=== PATIENT | female | born 1965 | race Caucasian/White ===

== ENCOUNTER 2020-03-29 10:12 | Observation (INO) | payer OTHER, SELFPAY ==
[2020-03-29] VITALS (7 sets, daily range): BP systolic 115–125; BP diastolic 71–83; PULSE 101–121; RESP 18–20; TEMP 36.3–36.6; O2SAT 98–100; BMI 23.5
--- NOTE | 2020-03-29 | ECG_ITS ---
Test Reason : ABD PAIN Blood Pressure : / mmHG Vent. Rate : 113 BPM Atrial Rate : 113 BPM P-R Int : 164 ms QRS Dur : 052 ms QT Int : 322 ms P-R-T Axes : 033 007 015 degrees QTc Int : 441 ms Sinus tachycardia Cannot rule out Anterior infarct (cited on or before 02-MAR-2020) Abnormal ECG When compared with ECG of 07-MAR-2020 11:53, No significant change was found Referred By: Jaron Lopez Electronically Signed By:OLEGARIO ROBERT
--- NOTE | 2020-03-29 | XR_ITS ---
EXAMINATION: XR CHEST CLINICAL INFORMATION: Shortness of breath. COMPARISON: Portable chest 03/07/2020. TECHNIQUE: Portable AP upright view of the chest was obtained. FINDINGS: The right chest port with lead terminating at cavoatrial junction is unchanged. The heart is normal size. There is no congestion or focal consolidation. The bony thorax is unremarkable. IMPRESSION: No acute cardiopulmonary process.
--- NOTE | 2020-03-29 | CT_ITS ---
EXAMINATION: CT ABDOMEN WITHOUT CONTRAST CLINICAL INFORMATION: Ovarian cancer. Abdominal pain. COMPARISON: Previous CT of the abdomen and pelvis 03/02/2020 TECHNIQUE: Contiguous axial thin section helical images of the abdomen were performed without contrast. The data set was reformatted in the coronal and sagittal planes and reviewed on an independent workstation. This CT examination was performed using dose optimization techniques as appropriate, variously including the following: *Automated exposure control *Adjustment of mA and/or kV according to patient size (this includes techniques or standardized protocols for targeted exams where dose is matched to indication/reason for exam; i.e. extremities or head) *Use of iterative reconstruction technique DLP: 506 mGy-cm FINDINGS: There is a large amount of ascites. There is a peritoneal thickening along the diaphragmatic peritoneal surface and some calcification and the lower anterior abdominal peritoneal reflection. There is a soft tissue mass under the left hemidiaphragm measuring 2 cm axial image 7 series 2 that is unchanged. 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 LUNG BASES: The lung bases are clear. LIVER, GALLBLADDER, BILIARY TREE: There is a there are scattered calcifications along the capsular surface of the liver. There is mass effect on the liver from a large amount of ascites. There is question of subcapsular liver implants. The gallbladder is unremarkable. There is no biliary duct dilatation. PANCREAS: There is mass effect on the pancreas from the large amount of ascites including fluid in the lesser sac. The pancreas is otherwise unremarkable. SPLEEN: There are scattered capsular calcifications along the surface of the spleen. No focal splenic lesion is seen. ADRENAL GLANDS AND KIDNEYS: The adrenal glands are difficult to visualize. Is mass effect on the kidneys from the large amount of ascites. The kidneys are otherwise unremarkable. BOWEL LOOPS: There is mass effect on the stomach and right and left colons from the large amount of ascites. Small and large bowel is otherwise unremarkable. LYMPH NODES: No enlarged lymph nodes are seen. VASCULAR: Unremarkable. The uterus and ovaries appear to have been removed. BONES: Mild degenerative changes of the spine. No focal bone lesion is seen. IMPRESSION: Large amount of ascites with areas of peritoneal calcification and and thickening and some capsular liver implants suggestive of malignant ascites.
--- NOTE | 2020-03-29 10:45 | ED_ITS ---
HPI - Abdominal Pain General Chief Complaint: Abdominal Pain <Jaron Lopez NP - Last Filed: 03/29/20 17:14> Stated Complaint: abd pain <Jaron Lopez NP - Last Filed: 03/29/20 17:14> Time Seen by Provider: 03/29/20 10:41 <Jaron Lopez NP - Last Filed: 03/29/20 17:14> Source: patient <Jaron Lopez NP - Last Filed: 03/29/20 17:14> Mode of arrival: ambulatory <Jaron Lopez NP - Last Filed: 03/29/20 17:14> Limitations: no limitations <Jaron Lopez NP - Last Filed: 03/29/20 17:14> History of Present Illness HPI narrative: Has history of endometrial CA/ovarian CA is on chemo has occasional abdominal ascites has had multiple episodes requiring drainage having abdominal pain feeling like her abdomen is distended and needing her ascites to be drained. She was scheduled for Monday but cannot wait due to the pain. Denies any fever, rash, chills. <Jaron Lopez NP - Last Filed: 03/29/20 17:14> MD elicited complaint: abdominal pain <Jaron Lopez NP - Last Filed: 03/29/20 17:14> Pain Consistency: constant <Jaron Lopez NP - Last Filed: 03/29/20 17:14> Migration to: no migration <Jaron Lopez NP - Last Filed: 03/29/20 17:14> Related Data Allergies/Adverse Reactions: Allergies Allergy/AdvReac Type Severity Reaction Status Date / Time cocaine [Cocaine] Allergy Severe SEIZURE TO Verified 03/29/20 11:34 LIQUID COCAINE codeine [CODEINE] Allergy Severe SEIZURE Verified 03/29/20 11:34 paclitaxel [From TAXOL] Allergy Severe HEART Verified 03/29/20 11:34 STOPPED diphenhydramine Allergy Unknown PALPITATION Verified 03/29/20 11:34 [From BENADRYL] S ibuprofen [IBUPROFEN] Allergy Unknown SEIZURE Verified 03/29/20 11:34 latex [LATEX] Allergy Unknown RASH Verified 03/29/20 11:34 metronidazole [Flagyl] Allergy Unknown Seizure Verified 03/29/20 11:34 lactose Allergy Constipatio Verified 03/29/20 11:34 n From FLAGYL Allergy Severe SEIZURE-PASSED Uncoded 03/12/20 16:23 OUT CHOCOLATE Allergy Mild PASSOUT Uncoded 03/12/20 16:23 BENADRYL Allergy Unknown Hives Uncoded 03/29/20 11:34 Benadryl Allergy Unknown Hives Uncoded 03/29/20 11:34 CODEINE Allergy Unknown Unresponsiv Uncoded 03/29/20 11:34 e Codeine Allergy Unknown Unresponsiv Uncoded 03/29/20 11:34 e FLAGYL Allergy Unknown Seizure Uncoded 03/29/20 11:34 Taxol AdvReac Unknown cardiac Uncoded 02/17/20 00:00 arrect <Jaron Lopez NP - Last Filed: 03/29/20 17:14> Review of Systems Review of Systems Constitutional: No Weight loss, No Fever, No Chills, No Night Sweats, No Fatigue, No Malaise ENT/Mouth: No Hearing loss, No Ear Pain, No Nasal Congestion, No Sinus Pain, No Hoarseness, No sore throat, No Rhinorrhea, No Swallowing Difficulty Eyes: No Eye Pain, No Swelling, No Redness, No Foreign Body, No Discharge, No Vision Changes Cardiovascular: No Chest Pain, No SOB, No Dyspnea on Exertion, No Orthopnea, No Edema, No Palpitations Respiratory: No Cough, No Sputum, No Wheezing, No Smoke Exposure, No Dyspnea Gastrointestinal: + Nausea, No Vomiting, No Diarrhea, No Constipation, + abdominal Pain, No Hematochezia, No Melena Genitourinary: no irregular bleeding, No Dysuria, No Urinary Frequency, No Hematuria, No Urinary Incontinence, No Urgency, No Flank Pain, No Urinary Flow Changes, No Hesitancy Musculoskeletal: No joint pain, No Myalgias, No Joint Swelling Skin: No Skin Lesions, No rash Neuro: No Weakness, No Numbness, No Paresthesias, No Loss of Consciousness, No Dizziness, No Headache Psych: No Anxiety/Panic, No Depression, No SI/HI/AH/VH, No Social Issues, Heme/Lymph: No Bruising, No Bleeding,No Lymphadenopathy Endocrine: No Polyuria, No Polydipsia, No Temperature Intolerance <Jaron Lopez NP - Last Filed: 03/29/20 17:14> Physical Exam Vital Signs and I&O and Narrative: Vital Signs and I&O: Vital Signs Temp 97.6 F 03/29/20 10:34 Pulse 121 H 03/29/20 10:34 Resp 20 03/29/20 10:34 BP 125/83 03/29/20 10:34 Pulse Ox 100 03/29/20 10:34 Intake & Output 03/28/20 03/29/20 03/29/20 18:59 06:59 18:59 Intake Total 1000 / 1000 Balance 1000 / 1000 Weight 60.2 kg Intake: Intake, IV Amoun t 1000 / 1000 0.9 % Sodium C hloride 1,000 ml 1000 / 1000 @ 999 mls/hr I VCONT .Q1H1M [facility] Rx#:[id number] Body Mass Index 23.5 <Jaron Lopez NP - Last Filed: 03/29/20 17:14> Vital Signs and I&O: Vital Signs Temp 97.6 F 03/29/20 10:34 Pulse 121 H 03/29/20 10:34 Resp 20 03/29/20 10:34 BP 125/83 03/29/20 10:34 Pulse Ox 100 03/29/20 10:34 Intake & Output 03/28/20 03/29/20 03/29/20 18:59 06:59 18:59 Intake Total 1000 / 1000 Balance 1000 / 1000 Weight 60.2 kg Intake: Intake, IV Amoun t 1000 / 1000 0.9 % Sodium C hloride 1,000 ml 1000 / 1000 @ 999 mls/hr I VCONT .Q1H1M [facility] Rx#:[id number] Body Mass Index 23.5 <Clif Dee DO - Last Filed: 03/29/20 17:39> Const: Other: chronically ill appearing <Jarondavid Lopez NP - Last Filed: 03/29/20 17:14> Orientation/consciousness: patient oriented x3 <[facility] CARI Lopez - Last Filed: 03/29/20 17:14> HENMT: Head: Yes normocephalic and Yes atraumatic <Jaron Lopez NP - Last Filed: 03/29/20 17:14> Eyes: Sclerae: sclerae normal <[facility] CARI Lopez - Last Filed: 03/29/20 17:14> Chest: Chest palpation & inspection: normal inspection of the chest <Jarondavid Lopez NP - Last Filed: 03/29/20 17:14> Resp: Effort & Inspection: normal respiratory effort and no respiratory distress <Jaron CARI Lopez - Last Filed: 03/29/20 17:14> Auscultation: clear to auscultation bilaterally <[facility] CARI Lopez - Last Filed: 03/29/20 17:14> Cardio: Rate: regular rate <[facility] Jessica CHEESE [employer]KER - Last Filed: 03/29/20 17:14> Rhythm: regular rhythm <[facility] Jessica CHEESE MAKER - Last Filed: 03/29/20 17:14> GI: Palpation (GI): Firmness to palpation present (GI), no guarding and Ascites present <[facility] CARI Lopez - Last Filed: 03/29/20 17:14> Skin: General skin exam: no rashes or lesions noted <[facility] CARI Lopez - Last Filed: 03/29/20 17:14> Neuro: General: patient oriented x3 <[facility] CARI Lopez - Last Filed: 03/29/20 17:14> Cranial nerves: Yes CN's II-XII intact bilaterally and Yes Bilaterally intact EOM present <Jaron CARI Lopez - Last Filed: 03/29/20 17:14> Extrem: General: Yes normal to inspection <Jarondavid Lopez NP - Last Filed: 03/29/20 17:14> Course Course Hospital Course: Ca patient with abdominal ascites. Workup shows thrombocytopenia at 37, no IR availability at this time to do paracentesis. No evidence of SBP or infectious pathology. Given the low platelet count will defer on paracentesis at this time will need blood products prior to. <Jaron Lopez NP - Last Filed: 03/29/20 17:14> Consultations Consultation #1: Case discussed with hospitalist Tiffanie Stafford for admission. <Jaron Lopez NP - Last Filed: 03/29/20 17:14> MDM - Abdominal Pain MDM Narrative Medical decision making narrative: 54-year-old female with above history including history of endometrial carcinoma and peritoneal serous carcinoma in 2012 was treated with chemotherapy and multiple recurrent episodes with chemotherapy and treatment, debulking surgery in 2012 at [facility], history of bulimia, anxiety, epilepsy last seizure at age 10, hypertension, hysterectomy and ascites of the abdomen with multiple paracentesis currently being followed by Oncology here Dr. Washburn presenting today <Jarondavid Lopez NP - Last Filed: 03/29/20 17:14> Lab Data Result diagrams: : 03/29/20 11:30 03/29/20 11:30 <Jarondavid Lopez NP - Last Filed: 03/29/20 17:14> Labs: Lab Results 03/29/20 03/29/20 03/29/20 Range/Units 11:30 11:30 11:30 WBC 6.0 (4.8-10.8) X10*3/uL RBC 2.92 L (4.20-5.50) X10*6/uL Hgb 9.3 L (12.0-16.0) g/dl Hct 28.4 L (37-47) % MCV 97.3 (80-98) fL MCH 31.8 (27.0-33.0) pg MCHC 32.7 (31.0-35.0) g/dl RDW 15.7 (11.0-16.0) % Plt Count 37 L (160-400) X10*3/uL MPV 12.4 H (9.4-12.3) fL Absolute Nucleated RBC 0.040 H (0.0-0.012) X10*3/uL Nucleated RBC % (auto) 0.7 H (0.0-0.2) /100WBC Neutrophils % (Manual) 32 L (45-73) % Band Neutrophils % 8 H (3-5) % Lymphocytes % (Manual) 54 H (20-40) % Monocytes % (Manual) 6 (2-11) % Neutrophils # (Manual) 2.4 (2.2-7.9) X10*3/uL Lymphocytes # (Manual) 3.2 (0.6-4.8) X10*3/uL Monocytes # (Manual) 0.4 (0.0-1.2) X10*3/uL Platelet Estimate DECREASED (NORMAL) Large Platelets PRESENT Plt Morphology Comment NOTED RBC Morphology NOTED Polychromasia 1+ Hypochromasia 1+ Microcytosis 1+ Ovalocytes 1+ Acanthocytes (Spur) 1+ PT 14.1 H (10.8-13.0) SEC INR 1.2 H (0.9-1.1) APTT 33.3 (24.1-38.0) SEC Sodium 138 (135-145) mmol/L Potassium 3.0 L (3.3-5.1) mmol/l Chloride 103 (96-108) mmol/L Carbon Dioxide 25 (22-29) mmol/L Anion Gap 13 (12-20) BUN 9 (9-16) mg/dL Creatinine 0.66 (0.5-1.4) mg/dL Estim Creat Clear Calc 78.7 Estimated GFR > 60 Random Glucose 122 H (60-115) mg/dL Calcium 8.3 L (8.4-10.2) mg/dL Magnesium 1.3 L* (1.6-2.6) mg/dL Total Bilirubin 0.4 (0.0-1.0) mg/dL AST 13 (5-31) U/L ALT 8 (0-31) U/L Alkaline Phosphatase 100 (39-117) U/L Troponin I High Sens (<3.5-17.0) ng/L Total Protein 5.0 L (6.5-8.0) g/dL Albumin 3.2 L (3.5-5.0) g/dL 03/29/20 Range/Units 11:30 WBC (4.8-10.8) X10*3/uL RBC (4.20-5.50) X10*6/uL Hgb (12.0-16.0) g/dl Hct (37-47) % MCV (80-98) fL MCH (27.0-33.0) pg MCHC (31.0-35.0) g/dl RDW (11.0-16.0) % Plt Count (160-400) X10*3/uL MPV (9.4-12.3) fL Absolute Nucleated RBC (0.0-0.012) X10*3/uL Nucleated RBC % (auto) (0.0-0.2) /100WBC Neutrophils % (Manual) (45-73) % Band Neutrophils % (3-5) % Lymphocytes % (Manual) (20-40) % Monocytes % (Manual) (2-11) % Neutrophils # (Manual) (2.2-7.9) X10*3/uL Lymphocytes # (Manual) (0.6-4.8) X10*3/uL Monocytes # (Manual) (0.0-1.2) X10*3/uL Platelet Estimate (NORMAL) Large Platelets Plt Morphology Comment RBC Morphology Polychromasia Hypochromasia Microcytosis Ovalocytes Acanthocytes (Spur) PT (10.8-13.0) SEC INR (0.9-1.1) APTT (24.1-38.0) SEC Sodium (135-145) mmol/L Potassium (3.3-5.1) mmol/l Chloride (96-108) mmol/L Carbon Dioxide (22-29) mmol/L Anion Gap (12-20) BUN (9-16) mg/dL Creatinine (0.5-1.4) mg/dL Estim Creat Clear Calc Estimated GFR Random Glucose (60-115) mg/dL Calcium (8.4-10.2) mg/dL Magnesium (1.6-2.6) mg/dL Total Bilirubin (0.0-1.0) mg/dL AST (5-31) U/L ALT (0-31) U/L Alkaline Phosphatase (39-117) U/L Troponin I High Sens 8.4 (<3.5-17.0) ng/L Total Protein (6.5-8.0) g/dL Albumin (3.5-5.0) g/dL <Jaron Lopez NP - Last Filed: 03/29/20 17:14> Lab Results 03/29/20 03/29/20 03/29/20 Range/Units 11:30 11:30 11:30 WBC 6.0 (4.8-10.8) X10*3/uL RBC 2.92 L (4.20-5.50) X10*6/uL Hgb 9.3 L (12.0-16.0) g/dl Hct 28.4 L (37-47) % MCV 97.3 (80-98) fL MCH 31.8 (27.0-33.0) pg MCHC 32.7 (31.0-35.0) g/dl RDW 15.7 (11.0-16.0) % Plt Count 37 L (160-400) X10*3/uL MPV 12.4 H (9.4-12.3) fL Absolute Nucleated RBC 0.040 H (0.0-0.012) X10*3/uL Nucleated RBC % (auto) 0.7 H (0.0-0.2) /100WBC Neutrophils % (Manual) 32 L (45-73) % Band Neutrophils % 8 H (3-5) % Lymphocytes % (Manual) 54 H (20-40) % Monocytes % (Manual) 6 (2-11) % Neutrophils # (Manual) 2.4 (2.2-7.9) X10*3/uL Lymphocytes # (Manual) 3.2 (0.6-4.8) X10*3/uL Monocytes # (Manual) 0.4 (0.0-1.2) X10*3/uL Platelet Estimate DECREASED (NORMAL) Large Platelets PRESENT Plt Morphology Comment NOTED RBC Morphology NOTED Polychromasia 1+ Hypochromasia 1+ Microcytosis 1+ Ovalocytes 1+ Acanthocytes (Spur) 1+ PT 14.1 H (10.8-13.0) SEC INR 1.2 H (0.9-1.1) APTT 33.3 (24.1-38.0) SEC Sodium 138 (135-145) mmol/L Potassium 3.0 L (3.3-5.1) mmol/l Chloride 103 (96-108) mmol/L Carbon Dioxide 25 (22-29) mmol/L Anion Gap 13 (12-20) BUN 9 (9-16) mg/dL Creatinine 0.66 (0.5-1.4) mg/dL Estim Creat Clear Calc 78.7 Estimated GFR > 60 Random Glucose 122 H (60-115) mg/dL Calcium 8.3 L (8.4-10.2) mg/dL Magnesium 1.3 L* (1.6-2.6) mg/dL Total Bilirubin 0.4 (0.0-1.0) mg/dL AST 13 (5-31) U/L ALT 8 (0-31) U/L Alkaline Phosphatase 100 (39-117) U/L Troponin I High Sens (<3.5-17.0) ng/L Total Protein 5.0 L (6.5-8.0) g/dL Albumin 3.2 L (3.5-5.0) g/dL 03/29/20 Range/Units 11:30 WBC (4.8-10.8) X10*3/uL RBC (4.20-5.50) X10*6/uL Hgb (12.0-16.0) g/dl Hct (37-47) % MCV (80-98) fL MCH (27.0-33.0) pg MCHC (31.0-35.0) g/dl RDW (11.0-16.0) % Plt Count (160-400) X10*3/uL MPV (9.4-12.3) fL Absolute Nucleated RBC (0.0-0.012) X10*3/uL Nucleated RBC % (auto) (0.0-0.2) /100WBC Neutrophils % (Manual) (45-73) % Band Neutrophils % (3-5) % Lymphocytes % (Manual) (20-40) % Monocytes % (Manual) (2-11) % Neutrophils # (Manual) (2.2-7.9) X10*3/uL Lymphocytes # (Manual) (0.6-4.8) X10*3/uL Monocytes # (Manual) (0.0-1.2) X10*3/uL Platelet Estimate (NORMAL) Large Platelets Plt Morphology Comment RBC Morphology Polychromasia Hypochromasia Microcytosis Ovalocytes Acanthocytes (Spur) PT (10.8-13.0) SEC INR (0.9-1.1) APTT (24.1-38.0) SEC Sodium (135-145) mmol/L Potassium (3.3-5.1) mmol/l Chloride (96-108) mmol/L Carbon Dioxide (22-29) mmol/L Anion Gap (12-20) BUN (9-16) mg/dL Creatinine (0.5-1.4) mg/dL Estim Creat Clear Calc Estimated GFR Random Glucose (60-115) mg/dL Calcium (8.4-10.2) mg/dL Magnesium (1.6-2.6) mg/dL Total Bilirubin (0.0-1.0) mg/dL AST (5-31) U/L ALT (0-31) U/L Alkaline Phosphatase (39-117) U/L Troponin I High Sens 8.4 (<3.5-17.0) ng/L Total Protein (6.5-8.0) g/dL Albumin (3.5-5.0) g/dL <Clif Dee DO - Last Filed: 03/29/20 17:39> Discharge Plan Discharge Clinical Impression: Ascites Qualifiers: Ascites type: malignant Qualified Code(s): R18.0 - Malignant ascites Hypertension Qualifiers: Hypertension type: unspecified Qualified Code(s): I10 - Essential (primary) hypertension Anxiety disorder Qualifiers: Anxiety disorder type: unspecified anxiety disorder Qualified Code(s): F41.9 - Anxiety disorder, unspecified <Jaron Lopez NP - Last Filed: 03/29/20 17:14> Patient Disposition: Admitted As Inpatient <Jaron Lopez NP - Last Filed: 03/29/20 17:14> PMFSH Past Medical History Medical History: Medical History (Updated 03/29/20 @ 17:14 by Jaron Lopez NP) Anxiety disorder Ascites Bulimia Endometrial carcinoma Epilepsy Hypertension Ovarian ca Post hysterectomy menopause Uterine cancer <Jaron Lopez NP - Last Filed: 03/29/20 17:14> Surgical History: Surgical History (Updated 03/29/20 @ 10:25 by Felipe Moore) H/O: hysterectomy Hx of tonsillectomy <Jaron Lopez NP - Last Filed: 03/29/20 17:14> Family History Family History: Family History (Updated 03/29/20 @ 14:04 by HARITHA Neville) Father CVA (cerebral vascular accident) Mother Hypertension Heart disease <Jaron Lopez NP - Last Filed: 03/29/20 17:14> Social History Social History: Social History Alcohol intake: never Smoking Status: Never smoker Use of substances other than those prescribed or required for medical reasons: No Any prior treatment program specific to substance use: No Advance Directives: Yes Advance Directives Information Provided: No Advance Directives on File: No <Jaron Lopez NP - Last Filed: 03/29/20 17:14>
[2020-03-29] MEDS: ondansetron HCL 4 MG/2 ML VIAL IVPUSH (11:37)
[2020-03-29] MEDS: 0.9 % Sodium Chloride 1,000 ML 999 ML IVCONT (11:37)
[2020-03-29 11:40] LABS: Hematocrit 28.4 % (37-47); Hemoglobin 9.3 g/dl (12.0-16.0); Mean Corpuscular HGB Conc 32.7 g/dl (31.0-35.0); Mean Corpuscular Hemoglobin 31.8 pg (27.0-33.0); Mean Corpuscular Volume 97.3 fL (80-98); Mean Platelet Volume 12.4 fL (9.4-12.3); NRBC Pct Auto 0.7 /100WBC (0.0-0.2); Red Blood Count 2.92 X10*6/uL (4.20-5.50); Red Cell Distribution Width 15.7 % (11.0-16.0)
--- NOTE | 2020-03-29 11:44 | PC.NURSE ---
port accessed w/o issue. good blood return. labs collected and sent. medicated per emar, fluids running slowly att. pt does not appear to be in distress. awaiting results
[2020-03-29 11:50] LABS: INTERNATIONAL NORM RATIO 1.2 (0.9-1.1); Prothrombin Time 14.1 SEC (10.8-13.0)
[2020-03-29 11:53] LABS: Partial Thromboplastin Time 33.3 SEC (24.1-38.0)
[2020-03-29 11:55] LABS: Platelet Count 37 X10*3/uL (160-400); WBC ABN SCTR FOR CBC 1
[2020-03-29 12:10] LABS: Band Neutrophils Percent 8 % (3-5); Lymphocytes Percent Manual 54 % (20-40); Monocytes Percent Manual 6 % (2-11); Neutrophils Percent Manual 32 % (45-73); Platelet Estimate DECREASED (NORMAL)
[2020-03-29 12:11] LABS: Large Platelet PRESENT; Platelet Morphology Comment NOTED; RBC Morphology NOTED
[2020-03-29 12:12] LABS: Acanthocytes 1+; Hypochromasia 1+; Microcytosis 1+; Polychromasia 1+; Troponin-I High Sensitivity 8.4 ng/L (<3.5-17.0)
[2020-03-29 12:13] LABS: Ovalocytes 1+
[2020-03-29 12:20] LABS: Lymphocytes Absolute Manual 3.2 X10*3/uL (0.6-4.8); Monocytes Absolute Manual 0.4 X10*3/uL (0.0-1.2); Neutrophils Absolute Manual 2.4 X10*3/uL (2.2-7.9)
[2020-03-29 12:25] LABS: Alanine Aminotransferase 8 U/L (0-31); Albumin Level 3.2 g/dL (3.5-5.0); Alkaline Phosphatase 100 U/L (39-117); Anion Gap 13 (12-20); Aspartate Amino Transferase 13 U/L (5-31); Bilirubin Total 0.4 mg/dL (0.0-1.0); Blood Urea Nitrogen 9 mg/dL (9-16); Calcium 8.3 mg/dL (8.4-10.2); Carbon Dioxide 25 mmol/L (22-29); Chloride 103 mmol/L (96-108); Creatinine Clr Calc Pharmacy 78.7; Estimated Glomerular Filt Rate > 60; Glucose Random 122 mg/dL (60-115); Magnesium 1.3 mg/dL (1.6-2.6); Sodium 138 mmol/L (135-145)
[2020-03-29] MEDS: Morphine Sulfate 4 MG/ML CARTRIDGE IVPUSH (12:43)
--- NOTE | 2020-03-29 12:50 | PC.NURSE ---
PT MEDICATED PER EMAR, AWAITING CONSULT FROM HOSPITALIST ABOUT PLAN OF CARE.
--- NOTE | 2020-03-29 13:20 | PC.NURSE ---
HOSPITALIST AT BEDSIDE FOR EVAL AND PLAN OF CARE
--- NOTE | 2020-03-29 13:58 | P.HPIM_ITS ---
History of Present Illness Date of Service: 03/29/20 <HARITHA Neville - Last Filed: 03/29/20 19:00> Chief Complaint: abdominal pain <HARITHA Neville - Last Filed: 03/29/20 19:00> This is a 54-year-old female with history of underlying metastatic ovarian cancer currently undergoing palliative chemotherapy who presents to the emergency department today with complaints of abdominal pain. Her abdominal pain is generalized. She has associated nausea and vomiting. She denies associated fever, chills, diarrhea. she has had shortness of breath but denies any associated cough. Last chemotherapy was just over 1 week ago. She has required therapeutic paracentesis and approximately once a month for the past several months. Her last paracentesis was March 06. In the emergency department she underwent a CAT scan of the abdomen which revealed large volume ascites. Her electrolytes are abnormal with a magnesium of 1 point and a potassium 3.0. The she was also noted to be thrombocytopenic with a platelet count of 37. IR is not available for paracentesis today and given thrombocytopenia and electrolyte abnormalities the decision was made to keep her overnight for I guarded paracentesis tomorrow. <HARITHA Neville - Last Filed: 03/29/20 19:00> Review of Systems Review of Systems: Yes all other systems are reviewed and are negative <HARITHA Neville - Last Filed: 03/29/20 19:00> Constitutional: Constitutional: Denies chills and Denies fever(s) <HARITHA Neville Last Filed: 03/29/20 19:00> Cardiovascular: Cardiovascular: Denies chest pain <HARITHA Neville Last Filed: 03/29/20 19:00> Respiratory: Respiratory: Denies cough <HARITHA Neville Last Filed: 03/29/20 19:00> Gastrointestinal: Gastrointestinal: Reports abdominal pain ( generalized) <HARITHA Neville Last Filed: 03/29/20 19:00> [facility] Medical History: Medical History (Updated 04/10/20 @ 11:04 by Tom Washburn MD) Anxiety disorder Ascites Bulimia Endometrial carcinoma Epilepsy Hypertension Ovarian ca Post hysterectomy menopause Uterine cancer <HARITHA Neville Last Filed: 03/29/20 19:00> Family History: Family History (Updated 03/29/20 @ 14:04 by HARITHA Neville) Father CVA (cerebral vascular accident) Mother Hypertension Heart disease <HARITHA Neville - Last Filed: 03/29/20 19:00> Surgical History: Surgical History (Updated 04/10/20 @ 11:04 by Tom Washburn MD) H/O: hysterectomy Hx of tonsillectomy <HARITHA Neville - Last Filed: 03/29/20 19:00> Social History: Social History Alcohol intake: never Smoking Status: Never smoker Advance Directives: No Advance Directives Information Provided: No Advance Directives on File: No Advance Directives Date on File: 03/29/20 service: No <HARITHA Neville - Last Filed: 03/29/20 19:00> Meds Allergies/Adverse reactions: Allergies Allergy/AdvReac Type Severity Reaction Status Date / Time cocaine [Cocaine] Allergy Severe SEIZURE TO Verified 03/29/20 11:34 LIQUID COCAINE codeine [CODEINE] Allergy Severe SEIZURE Verified 03/29/20 11:34 paclitaxel [From TAXOL] Allergy Severe HEART Verified 03/29/20 11:34 STOPPED diphenhydramine Allergy Unknown PALPITATION Verified 03/29/20 11:34 [From BENADRYL] S ibuprofen [IBUPROFEN] Allergy Unknown SEIZURE Verified 03/29/20 11:34 latex [LATEX] Allergy Unknown RASH Verified 03/29/20 11:34 metronidazole [Flagyl] Allergy Unknown Seizure Verified 03/29/20 11:34 lactose Allergy Constipatio Verified 03/29/20 11:34 n From FLAGYL Allergy Severe SEIZURE-PASSED Uncoded 03/12/20 16:23 OUT CHOCOLATE Allergy Mild PASSOUT Uncoded 03/12/20 16:23 BENADRYL Allergy Unknown Hives Uncoded 03/29/20 11:34 Benadryl Allergy Unknown Hives Uncoded 03/29/20 11:34 CODEINE Allergy Unknown Unresponsiv Uncoded 03/29/20 11:34 e Codeine Allergy Unknown Unresponsiv Uncoded 03/29/20 11:34 e FLAGYL Allergy Unknown Seizure Uncoded 03/29/20 11:34 Taxol AdvReac Unknown cardiac Uncoded 02/17/20 00:00 arrect <HARITHA Neville - Last Filed: 03/29/20 19:00> Home medications: Home Medications Medication Instructions Recorded Confirmed Type omeprazole 1 cap PO BID 03/30/20 04/10/20 History ondansetron 4 tab PO Q6-8H PRN 03/30/20 History <HARITHA Neville - Last Filed: 03/29/20 19:00> Physical Exam Vital Signs and Narrative: Vital Signs: Last Vital Signs Temp 97.6 F 03/29/20 10:34 Pulse 121 H 03/29/20 10:34 Resp 20 03/29/20 10:34 BP 125/83 03/29/20 10:34 Pulse Ox 100 03/29/20 10:34 Body Mass Index 23.5 <HARITHA Neville Last Filed: 03/29/20 19:00> Const: Other: chronically ill appearing <HARITHA Neville - Last Filed: 03/29/20 19:00> Orientation/consciousness: patient oriented x3 <HARITHA Neville - Last Filed: 03/29/20 19:00> HENMT: Head: Yes normocephalic and Yes atraumatic <HARITHA Neville - Last Filed: 03/29/20 19:00> Eyes: Sclerae: sclerae normal <HARITHA Neville Last Filed: 03/29/20 19:00> Chest: Chest palpation & inspection: normal inspection of the chest <HARITHA Neville Last Filed: 03/29/20 19:00> Resp: Effort & Inspection: normal respiratory effort and no respiratory distress <HARITHA Neville - Last Filed: 03/29/20 19:00> Auscultation: clear to auscultation bilaterally <HARITHA Neville Last Filed: 03/29/20 19:00> Cardio: Rate: regular rate <HARITHA Neville Last Filed: 03/29/20 19:00> Rhythm: regular rhythm <HARITHA Neville - Last Filed: 03/29/20 19:00> GI: Palpation (GI): Firmness to palpation present (GI), no guarding and Ascites present <HARITHA Neville Last Filed: 03/29/20 19:00> Skin: General skin exam: no rashes or lesions noted <HARITHA Neville Last Filed: 03/29/20 19:00> Neuro: General: patient oriented x3 <HARITHA Neville Last Filed: 03/29/20 19:00> Cranial nerves: Yes CN's II-XII intact bilaterally and Yes Bilaterally intact EOM present <HARITHA Neville Last Filed: 03/29/20 19:00> Extrem: General: Yes normal to inspection <HARITHA Neville Last Filed: 03/29/20 19:00> Results Labs Labs: Laboratory Tests 03/29/20 03/29/20 03/29/20 11:30 11:30 11:30 WBC 6.0 RBC 2.92 L Hgb 9.3 L Hct 28.4 L MCV 97.3 MCH 31.8 MCHC 32.7 RDW 15.7 Plt Count 37 L MPV 12.4 H Absolute Nucleated RBC 0.040 H Nucleated RBC % (auto) 0.7 H Neutrophils % (Manual) 32 L Band Neutrophils % 8 H Lymphocytes % (Manual) 54 H Monocytes % (Manual) 6 Neutrophils # (Manual) 2.4 Lymphocytes # (Manual) 3.2 Monocytes # (Manual) 0.4 Platelet Estimate DECREASED Large Platelets PRESENT Plt Morphology Comment NOTED RBC Morphology NOTED Polychromasia 1+ Hypochromasia 1+ Microcytosis 1+ Ovalocytes 1+ Acanthocytes (Spur) 1+ PT 14.1 H INR 1.2 H APTT 33.3 Sodium 138 Potassium 3.0 L Chloride 103 Carbon Dioxide 25 Anion Gap 13 BUN 9 Creatinine 0.66 Estim Creat Clear Calc 78.7 Estimated GFR > 60 Random Glucose 122 H Calcium 8.3 L Magnesium 1.3 L* Total Bilirubin 0.4 AST 13 ALT 8 Alkaline Phosphatase 100 Troponin I High Sens Total Protein 5.0 L Albumin 3.2 L 03/29/20 11:30 WBC RBC Hgb Hct MCV MCH MCHC RDW Plt Count MPV Absolute Nucleated RBC Nucleated RBC % (auto) Neutrophils % (Manual) Band Neutrophils % Lymphocytes % (Manual) Monocytes % (Manual) Neutrophils # (Manual) Lymphocytes # (Manual) Monocytes # (Manual) Platelet Estimate Large Platelets Plt Morphology Comment RBC Morphology Polychromasia Hypochromasia Microcytosis Ovalocytes Acanthocytes (Spur) PT INR APTT Sodium Potassium Chloride Carbon Dioxide Anion Gap BUN Creatinine Estim Creat Clear Calc Estimated GFR Random Glucose Calcium Magnesium Total Bilirubin AST ALT Alkaline Phosphatase Troponin I High Sens 8.4 Total Protein Albumin <HARITHA Neville - Last Filed: 03/29/20 19:00> Imaging CT scan - abdomen: Radiologist's impression: Large amount of ascites with areas of peritoneal calcification and and thickening and some capsular liver implants suggestive of malignant ascites. <HARITHA Neville - Last Filed: 03/29/20 19:00> Assessment and Plan (1) Ascites: Qualifiers: Ascites type: malignant Qualified Code(s): R18.0 - Malignant ascites <HARITHA Neville - Last Filed: 03/29/20 19:00> Status: Resolved <HARITHA Neville - Last Filed: 03/29/20 19:00> (2) Anxiety disorder: Qualifiers: Anxiety disorder type: generalized anxiety disorder Qualified Code(s): F41.1 - Generalized anxiety disorder <HARITHA Neville - Last Filed: 03/29/20 19:00> Status: Acute <HARITHA Neville - Last Filed: 03/29/20 19:00> (3) Hypertension: Qualifiers: Hypertension type: essential hypertension Qualified Code(s): I10 - Essential (primary) hypertension <HARITHA Neville - Last Filed: 03/29/20 19:00> Status: Acute <HARITHA Neville - Last Filed: 03/29/20 19:00> this is a 54-year-old female with a history of metastatic ovarian cancer currently undergoing palliative chemotherapy who presents to the emergency department with abdominal pain found to have recurrent ascites. ascites in the setting of ovarian cancer IR guided paracentesis in a.m. may need platelets prior to procedure thrombocytopenia related to chemotherapy no active bleeding noted follow CBC low magnesium replace and follow tele monitoring hypokalemia replace and follow tele monitoring Will continue home medications once med rec has been completed DVT prophylaxis- mechanical devices this case was discussed with Dr. Zhang <HARITHA Neville - Last Filed: 03/29/20 19:00>
--- NOTE | 2020-03-29 16:23 | PM.EVENT ---
Event Note Event Note: attending admission note date of service 03/29/2020 54-year-old female with metastatic uterine and ovarian cancer under palliative chemo with Dr. Washburn presented with abdominal distension pain and dyspnea, CT abdomen shows large amount of ascites patient seen and examined at bedside on exam alert abdomen distended , CVS rate and rhythm regular lungs clear admitted for dyspnea secondary to large malignant ascites requiring peritoneal tap, plan for paracentesis tomorrow, given thrombocytopenia will transfuse platelets for paracentesis tomorrow hypokalemia and hypomagnesium replaced monitor electrolytes patient seen and examined with mid-level agree with assessment and plan
[2020-03-29] MEDS: Magnesium Sulfate/H2O 2 GM/50 ML PIGGYBACK IV (20:24)
[2020-03-29] MEDS: Potassium Chloride ER 20 MEQ TAB.ER.PRT 40 MEQ PO (20:25)
[2020-03-29] MEDS: Morphine Sulfate 2 MG/ML CARTRIDGE IVPUSH (20:25)
[2020-03-29] MEDS: 0.9 % Sodium Chloride Flush 3 ML SYRINGE 2 ML IVFLUSH (20:26)
[2020-03-30] VITALS (11 sets, daily range): BP systolic 98–134; BP diastolic 57–78; PULSE 100–116; RESP 16–20; TEMP 36.4–36.8; O2SAT 96–100
--- NOTE | 2020-03-30 | US_ITS ---
EXAMINATION: ULTRASOUND-GUIDED PARACENTESIS CLINICAL INFORMATION: Ascites. History of ovarian cancer. COMPARISON: Previous exams most recent February 2020 TECHNIQUE: Procedure and risks and benefits including bleeding, infection and low blood pressure were discussed with the patient and informed consent was obtained. The left lower quadrant was prepped and draped in usual sterile fashion. The skin and soft tissues were anesthetized with 1% lidocaine plain. Using ultrasound guidance and a 5 [place] rapid centesis catheter, access to the ascitic fluid was obtained. 5.7 L of dark serosanguineous/slightly bloody fluid was removed. No diagnostic specimen was sent. The patient received albumin 25 g IV during the procedure. FINDINGS: There is a large amount of ascites. IMPRESSION: Ultrasound-guided paracentesis.
[2020-03-30] MEDS: Morphine Sulfate 2 MG/ML CARTRIDGE IVPUSH (08:10)
[2020-03-30] MEDS: 0.9 % Sodium Chloride Flush 3 ML SYRINGE 2 ML IVFLUSH ×2 (08:10→17:19)
--- NOTE | 2020-03-30 09:49 | MHC.CM.PN ---
met with pt who explins mthat she lives with her mother pt does not have [facility] pt has own ride home
[2020-03-30] MEDS: Lidocaine HCl 1 % 20 ML VIAL 5 ML SUBCUT (11:03)
[2020-03-30] MEDS: Albumin Human 25 % 100 ML IV (11:28)
[2020-03-30] MEDS: Acetaminophen 325 MG TABLET 650 MG PO (15:30)
--- NOTE | 2020-03-30 16:18 | PM.IMPN ---
Physical Exam Vital Signs and I&O and Narrative: Vital Signs and I&O: Vital Signs Temp 98.3 F 03/30/20 15:18 Pulse 107 H 03/30/20 15:18 Resp 18 03/30/20 15:18 BP 123/71 03/30/20 15:18 Pulse Ox 97 03/30/20 15:52 Intake & Output 03/29/20 03/30/20 03/30/20 18:59 06:59 18:59 Intake Total 1000 / 2297 1297 / 2297 330 / 330 Output Total 300 / 300 6675 / 6675 Balance 999 [id number] -6345 / -6345 Urine Output (Aver age ml/kg/hr) 0.42 1.35 Weight 60.2 kg Intake: Intake, Oral [place] unt 840 / 840 330 / 330 Intake (Blood Pr oduct) Amount 0 / 0 Apheresis Plat elets Irr(E3046) 0 / 0 Unit [id number] Intake, Other Am ount 407 / 407 Intake, IV Amoun t 1000 / 1050 50 / 1050 Magnesium Sulf ate/H2O 2 gm In 50 / 50 50 ml @ 50 mls /hr IV ONCE ONE Rx#:[id number] 0.9 % Sodium C hloride 1,000 ml 1000 / 1000 @ 999 mls/hr I VCONT .Q1H1M CHRISTIANA Rx#:[id number] Output: Output, Urine Am ount 300 / 300 975 / 975 Output, Intraper itoneal Amount 5700 / 5700 Other: NPO Yes Number of Unmeas ured Emesis 1 Episodes Urine Bathroom Bathroom Urine Color Concentrated Yellow Body Mass Index 23.5 Const: General: cooperative and no acute distress Eyes: Pupils: Equal, round and reactive pupils present Neck: Neck: Yes supple Chest: Chest palpation & inspection: normal inspection of the chest Resp: Effort & Inspection: normal respiratory effort Auscultation: clear to auscultation bilaterally Cardio: Jugular venous distension: no JVD Rhythm: regular rhythm Heart sounds: S1 normal heart sound present and S2 normal heart sound present GI: Inspection: Yes normal to inspection Palpation (GI): Soft to palpation Auscultation: normal bowel sounds Skin: General skin exam: no rashes or lesions noted Neuro: Cranial nerves: Yes Equal, round and reactive pupils present Motor exam (neuro): Other motor observations present ( no motor deficit) Objective Data Current Medications Generic Name Dose Route Start Last Admin Trade Name Sauloq PRN Reason Stop Dose Admin Acetaminophen 650 mg 03/30/20 15:02 03/30/20 15:30 Acetaminophen 325 Mg Tablet PO 650 mg Q6H PRN Administration Pain and Fever Docusate Sodium 100 mg 03/29/20 18:15 Docusate Sodium 100 Mg Capsule PO DAILY PRN Constipation Morphine Sulfate 2 mg 03/29/20 18:47 03/30/20 08:10 Morphine Sulfate 2 Mg/Ml Cartridge IVPUSH 2 mg Q4H PRN Administration Pain, Severe (Pain Scale 7-10) Ondansetron HCl 4 mg 03/29/20 18:15 Ondansetron Hcl 4 Mg/2 Ml Vial IVPUSH Q8H PRN Nausea and Vomiting Sodium Chloride 2 ml 03/29/20 18:15 03/30/20 08:10 0.9 % Sodium Chloride Flush 3 Ml Syringe IVFLUSH 2 ml QSHIFT CHRISTIANA Administration Labs CBC & Chem 7: 03/29/20 11:30 03/29/20 11:30 Labs: Laboratory Results - last 24 hr 03/29/20 18:46 Blood Type O Negative Antibody Screen NEGATIVE Progress Note: A&P (1) Ascites: Status: Acute Assessment and Plan: This is a 54 yo F with a history of metastatic ovarian ca who is admitted to the hospital for abdominal pain secondary to ascites. 1. Ascites in the setting of ovarian ca s/p drianage 2. Thrombcytoepnia 2/2 chemo -- s/p plts transfusion 3. Low Mg repleted 4. hypoK repleted monitor overnight and d/c tomorrow if stable
[2020-03-30] MEDS: Alteplase Cath Clear 2 MG VIAL INTRACATH (18:52)
[2020-03-30 20:57] LABS: Hematocrit 24.7 % (37-47); Hemoglobin 8.1 g/dl (12.0-16.0); Mean Corpuscular HGB Conc 32.8 g/dl (31.0-35.0); Mean Corpuscular Hemoglobin 31.8 pg (27.0-33.0); Mean Corpuscular Volume 96.9 fL (80-98); Mean Platelet Volume 10.3 fL (9.4-12.3); NRBC Pct Auto 0.7 /100WBC (0.0-0.2); Platelet Count 141 X10*3/uL (160-400); Red Blood Count 2.55 X10*6/uL (4.20-5.50); Red Cell Distribution Width 16.3 % (11.0-16.0)
[2020-03-30 21:04] LABS: INTERNATIONAL NORM RATIO 1.1 (0.9-1.1); Prothrombin Time 13.4 SEC (10.8-13.0)
[2020-03-30 21:10] LABS: WBC ABN SCTR FOR CBC 1
[2020-03-30 21:17] LABS: Anion Gap 14 (12-20); Blood Urea Nitrogen 8 mg/dL (9-16); Calcium 8.1 mg/dL (8.4-10.2); Carbon Dioxide 25 mmol/L (22-29); Chloride 105 mmol/L (96-108); Creatinine Clr Calc Pharmacy 79.9; Estimated Glomerular Filt Rate > 60; Glucose Random 115 mg/dL (60-115); Magnesium 1.5 mg/dL (1.6-2.6); Potassium 3.5 mmol/l (3.3-5.1); Sodium 140 mmol/L (135-145)
[2020-03-30 21:24] LABS: Band Neutrophils Percent 16 % (3-5); Lymphocytes Percent Manual 25 % (20-40); Metamyelocytes Percent 2 %; Monocytes Percent Manual 4 % (2-11); Myelocytes Percent 2 %; Neutrophils Percent Manual 50 % (45-73); Promyelocytes Percent 1 %
[2020-03-30 21:27] LABS: Macrocytosis 1+
[2020-03-30 21:29] LABS: Platelet Estimate NORMAL (NORMAL); Platelet Morphology Comment NORMAL; Polychromasia 1+
[2020-03-30 21:30] LABS: RBC Morphology NOTED
[2020-03-30 21:32] LABS: Lymphocytes Absolute Manual 4.7 X10*3/uL (0.6-4.8); Metamyelocytes Absolute 0.4 X10*3/uL; Monocytes Absolute Manual 0.7 X10*3/uL (0.0-1.2); Myelocytes Absolute 0.4 X10*/uL; Neutrophils Absolute Manual 12.3 X10*3/uL (2.2-7.9); Promyelocytes Absolute 0.2 X10*3/uL; White Blood Count 18.7 X10*3/uL (4.8-10.8)
[2020-03-31] VITALS: O2SAT 97
[2020-03-31 00:01] VITALS: BP 95/53; PULSE 103; RESP 18; TEMP 37; O2SAT 96
[2020-03-31] MEDS: Magnesium Sulfate/D5W 1 GM/100 ML PIGGYBACK IV (02:35)
[2020-03-31] MEDS: 0.9 % Sodium Chloride Flush 3 ML SYRINGE 2 ML IVFLUSH ×2 (02:35→08:46)
[2020-03-31 03:26] VITALS: BP 92/52; PULSE 96; RESP 18; TEMP 36.9; O2SAT 94
[2020-03-31 04:00] VITALS: O2SAT 97
[2020-03-31 07:29] VITALS: BP 103/60; PULSE 100; RESP 18; TEMP 36.5; O2SAT 97
[2020-03-31 08:00] VITALS: BP 103/60; PULSE 100; RESP 18; TEMP 36.5; O2SAT 97
[2020-03-31] MEDS: ondansetron HCL 4 MG/2 ML VIAL IVPUSH (08:52)
--- NOTE | 2020-03-31 11:15 | MHC.CM.PN ---
home no servcies
--- NOTE | 2020-03-31 12:16 | PC.NURSE ---
Reviewed discharge paperwork with patient and mother. Removed tele-monitor. De-accessed portacath per protocol. Pt brought down to main entrance via wheelchair and assisted into car by this RN.
--- NOTE | 2020-04-16 18:33 | P.DS_ITS ---
DS: Providers Provider Date of admission: 03/29/20 15:30 Primary care physician: Aquiles Quiros MD Anticipated date of discharge: 03/31/20 DS: Diagnosis Discharge Diagnosis (1) Ascites: Status: Resolved DS: Summary Hospital Course Hospital Course: patient was admitted for abdominal pain secondary to ascites setting ovarian cancer. Patient underwent a therapeutic paracentesis with resolution of her pain. She was monitored overnight and subsequently discharged home to follow-up with oncology. Time Spent with Patient Time attestation: Total time spent providing and/or coordinating discharge s ervices: Physical Exam Vital Signs: Vital Signs: Body Mass Index 23.5 Discharge Plan Discharge Patient Disposition: Home, Self-Care Referrals: Aquiles Quiros MD [Primary Care Provider] - 1 Week (Please call and schedule a follow up appointment within 1 week.) Discharge Medications: New sennosides [senna] 8.6 mg tablet 8.6 mg PO DAILY PRN (Reason: constipation) Qty: 30 RF: 0 bisacodyl [Dulcolax (bisacodyl)] 5 mg tablet,delayed release (DR/EC) 5 mg PO BEDTIME PRN (Reason: constipation) 30 Days Qty: 30 RF: 0 Continued omeprazole 20 mg capsule,delayed release(DR/EC) 1 cap PO BID RF: 0 ondansetron 4 mg tablet,disintegrating 4 tab PO Q6-8H PRN (Reason: Nausea) RF: 0 Discharge Orders: Discharge Order (Routine); Ordered 03/31/20 Ordered By: Chuy Resendez Diet: advance to your usual diet Activity on Discharge: As tolerated Discharge Date/Time: 03/31/20 12:02 Visit Report Forms: Patient Portal Discharge page Care Plan Goals: Follow up with your cancer doctors Health Concerns: Ascites Plan of Treatment: Follow up with cancer doctors
== END 2020-03-31 12:02 | disposition home or self-care (01) ==
LOC: HO.ED 12:55 → HO.IMC 16:06
PROVIDERS: Nurse Practitioner Primary Care; Admitting Provider Physician Assistant Medical; PCP Internal Medicine; Visit Provider Family Medicine
DX: R18.0 Malignant ascites (principal); D69.6 Thrombocytopenia, unspecified; E83.42 Hypomagnesemia; R06.00 Dyspnea, unspecified; C55 Malignant neoplasm of uterus, part unspecified; C79.60 Secondary malignant neoplasm of unspecified ovary; E87.6 Hypokalemia; F41.9 Anxiety disorder, unspecified; F50.2 Bulimia nervosa; I10 Essential (primary) hypertension; Z88.5 Allergy status to narcotic agent; Z88.8 Allergy status to other drugs, medicaments and biological substances; Z91.040 Latex allergy status; Z68.23 Body mass index [BMI] 23.0-23.9, adult; Z90.710 Acquired absence of both cervix and uterus; Z78.0 Asymptomatic menopausal state; Z51.11 Encounter for antineoplastic chemotherapy; Z79.899 Other long term (current) drug therapy
CPT/HCPCS: 36415; 49083; 71045; 74150; 80048; 80053; 83735; 84484; 85007; 85025; 85027; 85610; 85730; 86850; 86901; 93005; 93010; 96361; 96365; 96366; 96367; 96375; 99219; 99284; 99285; J2270; J2405; J3475; P9037

== ENCOUNTER 2020-04-15 07:48 | Outpatient (RCR) | payer OTHER, SELFPAY ==
[2020-04-15 07:51] VITALS: BP 105/68; PULSE 104; O2SAT 99
--- NOTE | 2020-04-15 09:54 | MHC.PT.EP ---
[facility] [place] Office [place] Office [place] Office [address] Eryn Edmondson [address] [phone] F: [phone] F: [phone] F: [phone] F: [phone] Physical Therapy Plan of Care Date of Evaluation: 04/15/20 Date of Surgery: Diagnosis: OVARIAN CANCER, ON CHEMO- DECONDITIONED Assessment: 04/15/20 PT EVAL : 54 YO FEMALE REF TO PT FOR DECONDITIONING SECONDARY TO OVARIAN CANCER AND IS CURRENTLY BEING TREATED W ORAL CHEMO. Pt RESIDES W HER MOTHER IN A MOBILE HOME- SHE CURRENTLY IS INDEP W ADLs BUT HAS DECR ACTIVITY SALO- ESPEC IN STANDING POSITIONS, DUE TO WEAKNESS AND NAUSEA REL TO CHEMO. Pt HAS DECENT AROM IN LEs, DECR POSTURE AWARENESS, GENERAL DECR STRENGTH- ESPEC IN LEs, DECR ACTIVITY SALO/ FUNCTIONAL MOB SALO, AND SECONDARY UNSTEADINESS W DYNAMIC ADLs. Pt WOULD BENEFIT FROM A GRADUAL PROGRESSION W PT TO ASSESS HER SALO, BUILD A HEP, AND IMPROVE FUNCTIONAL MOB SALO AND INDEPENDENCE- WELL INDIRECTLY INCREASING SAFETY. Pt TOLERATED 3/4 OF A SESSION THIS DATE- SHE HAD ONSET OF NAUSEA AND FATIGUE, FURTHER APPTS WILL BE LATER IN THE AM. Frequency and Duration: The patient will be seen 1-2 x WK x 6 WKs Short Term Goals: *Pt DEMON IMPROVED GAIT TOLERANCE TO ALLOW FOR SHORT GROCERY/ SHOPPING TRIPS IN 3 WEEKS *IMPROVE STATIC AND DYNAMIC STANDING BALANCE DURATION W SIMUL ADLs OR THER EXER IN PT *ASSESS GAIT ON STAIRS Senior Living Goals: *Pt INDEP W HEP ADDRESSING LEs/ GENERAL STRENGTH AND ADL ENDURANCE EVIDENT IN IMPROVED LEFT SCORE BY 10 POINTS IN 6 WKS Treatment Plan: Modalities to reduce pain, spasms and effusion. Manual therapy to restore motion and function. Therapeutic exercise to improve strength and flexibility. Neuromuscular re-education for posture and balance. Therapeutic activities to return to functional activities of daily living. Please sign and return to therapist. Thank you for your referral.
--- NOTE | 2020-07-02 07:18 | MHC.PT.DC ---
[facility] [place] Office [place] Office [place] [facility] [address] Eryn Edmondson [address] [phone] F: [phone] F: [phone] F: [phone] F: [phone] Physical Therapy Discharge Report Diagnosis: OVARIAN CANCER, ON CHEMO- DECONDITIONED Date of Surgery: Date of Evaluation: 04/15/20 Date of Discharge: 06/18/20 Treatments to Date: 1 Cancellations to Date: 0 No Shows to Date: 0 Discharge Status: Patient Elected to Stop Recommend MD Follow-up Discharge Summary: Pt DID NOT RETURN FOR F/U PT APPTS- SHE WAS VERY NAUSEOUS AT THE INITIAL EVAL- HER MOTHER WAS WITH HER AND WOULD F/U W DR TRAORE. SHE HAS NOT RETURNED FOR FURTHER PT. 04/15/20 PT EVAL : 54 YO FEMALE REF TO PT FOR DECONDITIONING SECONDARY TO OVARIAN CANCER AND IS CURRENTLY BEING TREATED W ORAL CHEMO. Pt RESIDES W HER MOTHER IN A MOBILE HOME- SHE CURRENTLY IS INDEP W ADLs BUT HAS DECR ACTIVITY SALO- ESPEC IN STANDING POSITIONS, DUE TO WEAKNESS AND NAUSEA REL TO CHEMO. Pt HAS DECENT AROM IN LEs, DECR POSTURE AWARENESS, GENERAL DECR STRENGTH- ESPEC IN LEs, DECR ACTIVITY SALO/ FUNCTIONAL MOB SALO, AND SECONDARY UNSTEADINESS W DYNAMIC ADLs. Pt WOULD BENEFIT FROM A GRADUAL PROGRESSION W PT TO ASSESS HER SALO, BUILD A HEP, AND IMPROVE FUNCTIONAL MOB SALO AND INDEPENDENCE- WELL INDIRECTLY INCREASING SAFETY. Pt TOLERATED 3/4 OF A SESSION THIS DATE- SHE HAD ONSET OF NAUSEA AND FATIGUE, FURTHER APPTS WILL BE LATER IN THE AM. Electronically signed by: Marcela Sanchez,PT Please sign and return to therapist. Thank you for your referral.
== END 2020-06-18 07:45 | disposition other institution (70) ==
LOC: HO.PT 07:48
PROVIDERS: PCP Hospitalist; Visit Provider Internal Medicine Medical Oncology
DX: R53.81 Other malaise (principal); C56.9 Malignant neoplasm of unspecified ovary; Z79.899 Other long term (current) drug therapy
CPT/HCPCS: 97162

== ENCOUNTER → 2020-04-23 14:03 | Outpatient (BNVA) | payer OTHER, SELFPAY | PROVIDERS: PCP Internal Medicine; Referring Provider Internal Medicine; Visit Provider Internal Medicine Gastroenterology | DX: Z76.89 Persons encountering health services in other specified circumstances (principal) ==

== ENCOUNTER 2020-04-28 12:22 | Emergency (ER) | payer OTHER, SELFPAY ==
--- NOTE | 2020-04-28 13:24 | ED.FEMALEGU ---
HPI - Female Genitourinary General Chief complaint: General Medical Stated complaint: MULITPLE ISSUES Time Seen by Provider: 04/28/20 13:20 Source: patient Mode of arrival: ambulatory Limitations: no limitations History of Present Illness HPI Narrative: Patient presents to the ED for urinary retention since Monday. Patient states she wants to urinate & has been drinking water but has not been able to urinate. Patient states No nausea, vomiting, fever, chills, or flank pain. Related Data Home Medications Medication Instructions Recorded Confirmed omeprazole 1 cap PO BID 03/30/20 04/23/20 olaparib 150 mg tablet 150 mg PO BID 04/23/20 04/23/20 famotidine 20 mg tablet mg PO 04/28/20 olanzapine 5 mg tablet 5 mg PO BEDTIME 04/28/20 ondansetron 8 mg disintegrating 8 mg PO Q8H PRN 04/28/20 tablet Previous Rx's Medication Instructions Recorded bisacodyl [Dulcolax (bisacodyl)] 5 mg PO BEDTIME PRN 30 Days #30 tab 03/31/20 sennosides [senna] 8.6 mg PO DAILY PRN #30 tab 03/31/20 cephalexin [Keflex] 500 mg PO QID #28 cap 04/28/20 Allergies Allergy/AdvReac Type Severity Reaction Status Date / Time cocaine [Cocaine] Allergy Severe SEIZURE TO Verified 04/28/20 12:19 LIQUID COCAINE codeine [CODEINE] Allergy Severe SEIZURE Verified 04/28/20 12:19 paclitaxel [From TAXOL] Allergy Severe HEART Verified 04/28/20 12:19 STOPPED diphenhydramine Allergy Unknown PALPITATION Verified 04/28/20 12:19 [From BENADRYL] S ibuprofen [IBUPROFEN] Allergy Unknown SEIZURE Verified 04/28/20 12:19 latex [LATEX] Allergy Unknown RASH Verified 04/28/20 12:19 metronidazole [Flagyl] Allergy Unknown Seizure Verified 04/28/20 12:19 lactose Allergy Constipatio Verified 04/28/20 12:19 n CHOCOLATE Allergy Mild PASSOUT Uncoded 04/28/20 12:19 Review of Systems Review of Systems: Yes all other systems are reviewed and are negative Constitutional: Constitutional: Reports as per HPI and Reports no additional constitutional complaints Eyes: Eyes: Reports as per HPI and Reports no additional eye complaints ENT: Reports system reviewed and no additional complaints, except as documented and Reports as per HPI Cardiovascular: Cardiovascular: Reports as per HPI and Reports no additional cardiovascular complaints Respiratory: Respiratory: Reports as per HPI and Reports no additional respiratory complaints Gastrointestinal: Gastrointestinal: Reports as per HPI and Reports no additional gastrointestinal complaints Genitourinary: Genitourinary: Reports dysuria Comments: urinary retention Musculoskeletal: Musculoskeletal: Reports no additional musculoskeletal complaints and Reports as per HPI Neurologic: Reports system reviewed and no additional complaints, except as documented and Reports as per HPI Psychiatric: Psychiatric: Reports no additional psychiatric complaints and Reports as per HPI [facility] Past Medical History Medical History (Updated 04/28/20 @ 17:51 by HARITHA Martinez) Anxiety disorder Ascites Bulimia Chronic constipation Endometrial carcinoma Epilepsy Hx of bulimia nervosa Hypertension Ovarian ca Post hysterectomy menopause Recurrent UTI Urinary retention Uterine cancer Surgical History H/O: hysterectomy (~2011) History of esophagogastroduodenoscopy (EGD) Hx of colonoscopy Hx of tonsillectomy Family History Family History Father Stroke Mother Hypertension Heart disease Social History Social History Alcohol intake: never Smoking Status: Never smoker Smoked in Last 30 Days: No Use of substances other than those prescribed or required for medical reasons: No Advance Directives: Yes Advance Directives on File: Yes Advance Directives Date on File: 03/29/20 service: No Physical Exam Vital Signs: Vital Signs: Vital Signs Temp Pulse Resp BP Pulse Ox 04/28/20 16:18 110 H 16 129/90 H 100 04/28/20 13:44 97.6 F 97 18 115/77 100 Body Mass Index 20.9 Const: General: cooperative, healthy appearing, comfortable, no acute distress, well developed, alert and awake Orientation/consciousness: patient oriented x3 HENMT: Head: Yes normal to inspection and Yes No palpable skull fracture present Eyes: General: appearance normal, both eyes and all related structures Visual Rowley: normal visual rowley by confrontation Neck: Neck: Yes normal visual inspection, Yes full ROM and Yes no lymphadenopathy Chest: Chest palpation & inspection: normal inspection of the chest and normal palpation of entire chest wall Resp: Effort & Inspection: normal respiratory effort and able to speak in complete sentences Cardio: Jugular venous distension: no JVD Heart sounds: S1 normal heart sound present and S2 normal heart sound present GI: Inspection: Yes normal to inspection, No abdominal wall ecchymosis and No distended Palpation (GI): Soft to palpation, not firm, nontender, no guarding and not rigid : General: No CVA tenderness and Yes no CVA tenderness Back/Spine/Pelvis: Back: no CVA tenderness, No CVA tenderness and No back tenderness Skin: General skin exam: no rashes or lesions noted Neuro: General: patient oriented x3, gait normal and CN's II-XI intact bilaterally Cranial nerves: Yes CN's II-XII intact bilaterally Extrem: General: Yes normal to inspection and Yes full ROM Psych: Appearance: grossly normal, well kempt and not disheveled Course Reevaluation(s) Reevaluation #1: Baltazar was attempted multiple times by nurse, tech, and myself. Sixteen [place] was used and will go through the urethra, but then it will stop moving and Urine will come only prison down the tube. Bladder scan was 521 and than 991. Patient will be sent for abdominal CT scan to see if there is a mass on the bladder. Patient states she had hysterectomy. Patient states presently she is on chemo. Time: 14:57 Reevaluation #2: CARI Yarbrough put Baltazar in patient. Abdomen CT scan does not show any bladder mass, or urinary obstruction. CT scan shows bladder is empty and there is no urine in bladder. patient does not need a Baltazar. Patient is not urinary retention due to CT scan stating no urine in the bladder. Patient had urinary episode in the ED without baltazar. bladder scan reading of 521 and 991 by tech is an error and was assessing the ascites. . Time: 16:57 Reevaluation #3: urine came back positive for UTI. Patient will be on antibiotics. Labs are normal. Negative for acute renal failure. CLinically there is no indication for paracentesis. patient is afebrile, and labs negative for elevated WBC. Also abdomen is non-tender and benin ryne palpation. Physical exam does not indicate SBP. Patient denies shortness of breath. Time: 17:40 MDM - Female Genitourinary MDM Narrative Medical decision making narrative: UTI. Patient is not in urinary retention. Lab Data Result diagrams: 04/28/20 16:20 04/28/20 16:20 Labs: Lab Results 04/28/20 04/28/20 04/28/20 Range/Units 16:20 16:20 17:00 WBC 7.1 (4.8-10.8) X10*3/uL RBC 2.74 L (4.20-5.50) X10*6/uL Hgb 9.7 L (12.0-16.0) g/dl Hct 28.8 L (37-47) % MCV 105.1 H (80-98) fL MCH 35.4 H (27.0-33.0) pg MCHC 33.7 (31.0-35.0) g/dl RDW 21.8 H (11.0-16.0) % Plt Count 227 D (160-400) X10*3/uL MPV 10.1 (9.4-12.3) fL Immature Gran % (Auto) 0.6 H (0.0-0.4) % Neut % (Auto) 72.5 (45-73) % Lymph % (Auto) 19.5 L (20-40) % Butts % (Auto) 6.5 (2-11) % Eos % (Auto) 0.3 (0-4) % Baso % (Auto) 0.6 (0-2) % Lymph # (Auto) 1.4 (1.2-4.9) X10*3/uL Butts # (Auto) 0.5 (0.1-1.2) X10*3/uL Eos # (Auto) 0.0 (0.0-0.4) X10*3/uL Baso # (Auto) 0.0 (0.0-0.2) X10*3/uL Abs Immat Gran (auto) 0.04 H (0.00-0.03) X10*3/uL Absolute Neuts (auto) 5.2 (2.0-8.3) X10*3/uL Absolute Nucleated RBC 0.000 (0.0-0.012) X10*3/uL Nucleated RBC % (auto) 0.0 (0.0-0.2) /100WBC Sodium 137 (135-145) mmol/L Potassium 4.6 D (3.3-5.1) mmol/l Chloride 101 (96-108) mmol/L Carbon Dioxide 29 (22-29) mmol/L Anion Gap 12 (12-20) BUN 13 (9-16) mg/dL Creatinine 0.85 (0.5-1.4) mg/dL Estim Creat Clear Calc 61.1 Estimated GFR > 60 Random Glucose 116 H (60-115) mg/dL Calcium 8.3 L (8.4-10.2) mg/dL Total Bilirubin 1.1 H (0.0-1.0) mg/dL AST 19 (5-31) U/L ALT 9 (0-31) U/L Alkaline Phosphatase 109 (39-117) U/L Total Protein 5.1 L (6.5-8.0) g/dL Albumin 3.2 L (3.5-5.0) g/dL Urine Color SHARA Urine Appearance CLOUDY Urine pH 6.0 (5.0-8.0) Ur Specific [place] >= 1.030 H (1.005-1.025) Urine Protein 2+ H (NEG-TRACE) MG/DL Urine Glucose (UA) NEG (NEG) MG/DL Urine Ketones 5 (NEG) MG/DL Urine Blood 2+ H (NEG) Urine Nitrite POS H (NEG) Ur Leukocyte Esterase NEG (NEG) Urine RBC 10-14 H (0) /HPF Urine WBC 0-2 (0-4) /HPF Ur Squamous Epith Cells 1+ /LPF Urine Bacteria 2+ /LPF Discharge Plan Discharge Clinical Impression: UTI (urinary tract infection) Patient Disposition: Home, Self-Care Instructions: Urinary Tract Infection in Women (ED) Additional Instructions: to the ED immediately for fever, chills, flank pain, nausea, vomiting, abdominal pain, inability to urinate, or any other concerning symptoms. Prescriptions: New cephalexin [Keflex] 500 mg capsule 500 mg PO QID Qty: 28 RF: 0 No Action omeprazole 20 mg capsule,delayed release(DR/EC) 1 cap PO BID RF: 0 sennosides [senna] 8.6 mg tablet 8.6 mg PO DAILY PRN (Reason: constipation) Qty: 30 RF: 0 bisacodyl [Dulcolax (bisacodyl)] 5 mg tablet,delayed release (DR/EC) 5 mg PO BEDTIME PRN (Reason: constipation) 30 Days Qty: 30 RF: 0 ondansetron 8 mg tablet,disintegrating 8 mg PO Q8H PRNRF: 0 olanzapine 5 mg tablet 5 mg PO BEDTIME RF: 0 famotidine 20 mg tablet PO RF: 0 Lynparza 150 mg tablet 150 mg PO BID RF: 0 Referrals: Aquiles Quiros MD [Primary Care Provider] - 2 days ( UTI. Patient is not in urinary retention) Interventions: ED Discharge Assessment Last Done: 04/28/20 18:12 Discharge Date/Time: 04/28/20 18:15 Print Language: Martiniquais
[2020-04-28 13:44] VITALS: BP 115/77; PULSE 97; RESP 18; TEMP 36.4; O2SAT 100; BMI 20.9
--- NOTE | 2020-04-28 14:41 | PC.NURSE ---
attempted to place baltazar in patient, baltzaar was placed with resistance, urine would not flow through to the bag of the baltazar and would only flow to the top of the baltazar, tech assisted as well and found the same. provider notified, additional baltazar was placed with the help of provider and we met the same resistance and problem with flow of urine, provider to contact urology
--- NOTE | 2020-04-28 15:38 | CT_ITS ---
EXAMINATION: CT ABDOMEN AND PELVIS WITHOUT CONTRAST CLINICAL INFORMATION: Urinary retention. Evaluate for a bladder mass. History of ovarian cancer and ascites. COMPARISON: Previous CT scan recent March 2020 TECHNIQUE: Multidetector volumetric imaging was performed from the superior aspect of the liver through the pubic symphysis. Sagittal and coronal reformatted images were obtained on the technologist's workstation. This CT examination was performed using dose optimization techniques as appropriate, variously including the following: *Automated exposure control *Adjustment of mA and/or kV according to patient size (this includes techniques or standardized protocols for targeted exams where dose is matched to indication/reason for exam; i.e. extremities or head) *Use of iterative reconstruction technique DLP: 417 mGy-cm FINDINGS: There is a large amount of ascites. This causes mass effect on adjacent structures. There is a 2 cm soft tissue mass under the left hemidiaphragm adjacent to the ascitic fluid. There is diffuse peritoneal thickening. There are scattered areas of peritoneal calcification. 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 LUNG BASES: The visualized lung bases are unremarkable. LIVER, GALLBLADDER, AND BILIARY TREE: There are scattered calcifications along the capsular surface of the liver. There is mass effect on the liver the large amount of ascites. This is similar to previous exams. It is difficult to exclude a subcapsular liver lesion, particularly in the caudate lobe of the liver measuring 2.5 cm axial image 12 series 3. The gallbladder is unremarkable. There is no biliary duct dilatation. PANCREAS: There is a fluid in the lesser sac and some mass effect on the pancreas. This is similar to previous exams. The pancreas is otherwise unremarkable. SPLEEN: There are scattered capsular calcifications along the surface of the lead. This is unchanged. ADRENAL GLANDS: Mass effect from the large amount of ascites otherwise unremarkable. KIDNEYS AND URETERS: There is mass effect on the kidneys from the large amount of ascites. The kidneys are otherwise unremarkable. BLADDER: Bladder is empty. A bladder mass is not identified. GASTROINTESTINAL TRACT: There is mass effect on the stomach, right, left and sigmoid colon colon from the large amount of ascites. Stool throughout the colon questionable for constipation. ABDOMINAL WALL: No significant hernia is appreciated. LYMPH NODES: No enlarged lymph nodes are seen. There are surgical clips in the left pelvic retroperitoneum. VASCULAR: Unremarkable. PELVIC VISCERA: The uterus and ovaries appear to have been removed. OSSEOUS STRUCTURES: Unremarkable. CT/CT abdomen pelvis wo con IMPRESSION: Large amount of ascites. This causes mass effect on the liver, pancreas, adrenal glands and kidneys, stomach and colon. This is similar to March 2020 exam. There are areas of peritoneal thickening, peritoneal calcification, capsular calcification of the liver spleen and peritoneal nodule under the left hemidiaphragm suggestive of carcinomatosis. There is question of a subcapsular or a cystic lesion in the caudate lobe of the liver. The bladder is empty and not well evaluated. No bladder mass is appreciated.
[2020-04-28 16:18] VITALS: BP 129/90; PULSE 110; RESP 16; O2SAT 100
--- NOTE | 2020-04-28 16:20 | PC.NURSE ---
pt resting comfortably. labs being drawn by pct. call terrell at bedside
[2020-04-28 16:26] LABS: Basophils Percent Auto 0.6 % (0-2); Eosinophils Percent Auto 0.3 % (0-4); Hematocrit 28.8 % (37-47); Hemoglobin 9.7 g/dl (12.0-16.0); Imm Gran Abs Auto 0.04 X10*3/uL (0.00-0.03); Imm Gran Pct Auto 0.6 % (0.0-0.4); Lymphocytes Absolute Auto 1.4 X10*3/uL (1.2-4.9); Lymphocytes Percent Auto 19.5 % (20-40); MANUAL DIFF FLAG NO; Mean Corpuscular HGB Conc 33.7 g/dl (31.0-35.0); Mean Corpuscular Hemoglobin 35.4 pg (27.0-33.0); Mean Corpuscular Volume 105.1 fL (80-98); Mean Platelet Volume 10.1 fL (9.4-12.3); Monocytes Absolute Auto 0.5 X10*3/uL (0.1-1.2); Monocytes Percent Auto 6.5 % (2-11); Neutrophils Absolute Auto 5.2 X10*3/uL (2.0-8.3); Neutrophils Percent Auto 72.5 % (45-73); Platelet Count 227 X10*3/uL (160-400); Red Blood Count 2.74 X10*6/uL (4.20-5.50); Red Cell Distribution Width 21.8 % (11.0-16.0); White Blood Count 7.1 X10*3/uL (4.8-10.8)
[2020-04-28 16:52] LABS: Alanine Aminotransferase 9 U/L (0-31); Albumin Level 3.2 g/dL (3.5-5.0); Alkaline Phosphatase 109 U/L (39-117); Anion Gap 12 (12-20); Aspartate Amino Transferase 19 U/L (5-31); Bilirubin Total 1.1 mg/dL (0.0-1.0); Blood Urea Nitrogen 13 mg/dL (9-16); Calcium 8.3 mg/dL (8.4-10.2); Carbon Dioxide 29 mmol/L (22-29); Chloride 101 mmol/L (96-108); Creatinine Clr Calc Pharmacy 61.1; Estimated Glomerular Filt Rate > 60; Glucose Random 116 mg/dL (60-115); Potassium 4.6 mmol/l (3.3-5.1); Sodium 137 mmol/L (135-145); Total Protein 5.1 g/dL (6.5-8.0)
[2020-04-28 17:18] LABS: Glucose Urine UA NEG (NEG); Leukocyte Esterase Urine NEG (NEG); Nitrite Urine POS (NEG); Specific Gravity - Urine >= 1.030 (1.005-1.025); Urine Blood 2+ (NEG); Urine Ketones 5 MG/DL (NEG); Urine Protein 2+ MG/DL (NEG-TRACE)
[2020-04-28 17:24] LABS: Appearance Urine CLOUDY; Color Urine AMBER
[2020-04-28 17:25] LABS: Bacteria Urine 2+ /LPF; Squamous Epithelial Cell Urine 1+ /LPF; WBC Urine 0-2 /HPF (0-4)
== END 2020-04-28 18:15 | disposition home or self-care (01) ==
PROVIDERS: Physician Assistant; Emergency Provider Internal Medicine; PCP Internal Medicine
DX: N39.0 Urinary tract infection, site not specified (principal); R33.9 Retention of urine, unspecified; R10.2 Pelvic and perineal pain; Z79.899 Other long term (current) drug therapy
CPT/HCPCS: 36415; 74176; 80053; 81001; 85025; 87086; 99284

== ENCOUNTER 2020-05-04 10:21 | Day surgery (SDC) | payer OTHER, SELFPAY ==
--- NOTE | 2020-05-04 09:54 | PC.NURSE ---
PATIENT WAS CALLED. DIDNT KNOW SHE HAD TO BE HERE 0930AM. STARTING TO ARRIVE.
[2020-05-04 10:37] VITALS: BP 118/84; PULSE 95; RESP 18; TEMP 36.3; O2SAT 100; BMI 21.0
--- NOTE | 2020-05-04 11:26 | US_ITS ---
EXAMINATION: ULTRASOUND-GUIDED PARACENTESIS CLINICAL INFORMATION: Ovarian cancer and malignant recurrent ascites COMPARISON: Previous paracentesis most recent 03/30/[address] of the abdomen and pelvis most recent 04/28/2020 TECHNIQUE: Procedure and risks and benefits including bleeding, infection and low blood pressure were discussed with the patient and informed consent was obtained. The left lower quadrant was prepped and draped in the usual sterile fashion. The skin and soft tissues were anesthetized with 1% lidocaine plain. Using ultrasound guidance and a 5 German rapid centesis catheter, access to the ascitic fluid was obtained. 5.3 L of dark serosanguineous slightly bloody fluid was removed. No diagnostic specimen was sent. FINDINGS: There is a large amount of ascites. US/US paracentesis abd w/image IMPRESSION: Ultrasound-guided paracentesis.
[2020-05-04 11:34] LABS: MANUAL DIFF FLAG NO
[2020-05-04 11:37] LABS: Basophils Absolute Auto 0.1 X10*3/uL (0.0-0.2); Basophils Percent Auto 1.2 % (0-2); Eosinophils Absolute Auto 0.1 X10*3/uL (0.0-0.4); Eosinophils Percent Auto 1.8 % (0-4); Hematocrit 28.5 % (37-47); Hemoglobin 9.4 g/dl (12.0-16.0); Imm Gran Abs Auto 0.02 X10*3/uL (0.00-0.03); Imm Gran Pct Auto 0.4 % (0.0-0.4); Lymphocytes Absolute Auto 1.5 X10*3/uL (1.2-4.9); Lymphocytes Percent Auto 27.2 % (20-40); Mean Corpuscular Hemoglobin 35.7 pg (27.0-33.0); Mean Corpuscular Volume 108.4 fL (80-98); Mean Platelet Volume 10.9 fL (9.4-12.3); Monocytes Absolute Auto 0.5 X10*3/uL (0.1-1.2); Monocytes Percent Auto 9.6 % (2-11); Neutrophils Absolute Auto 3.4 X10*3/uL (2.0-8.3); Neutrophils Percent Auto 59.8 % (45-73); Platelet Count 219 X10*3/uL (160-400); Red Blood Count 2.63 X10*6/uL (4.20-5.50); Red Cell Distribution Width 21.9 % (11.0-16.0); White Blood Count 5.6 X10*3/uL (4.8-10.8)
[2020-05-04 11:42] LABS: Prothrombin Time 12.4 SEC (10.8-13.0)
[2020-05-04 11:45] LABS: Partial Thromboplastin Time 29.1 SEC (24.1-38.0)
[2020-05-04 11:52] LABS: Anion Gap 12 (12-20); Carbon Dioxide 26 mmol/L (22-29); Chloride 103 mmol/L (96-108); Glucose Fasting 105 mg/dL (60-99); Potassium 3.6 mmol/l (3.3-5.1); Sodium 137 mmol/L (135-145)
[2020-05-04 12:44] VITALS: BP 131/77; PULSE 98; RESP 16; TEMP 36.8; O2SAT 99
--- NOTE | 2020-05-04 12:53 | HO.RADPN ---
RADIOLOGY Narrative Narrative: Left lower quadrant paracentesis performed using 5 Fr catheter. 6.5 L slightly bloody serosanguinous fluid removed. No specimen sent.
[2020-05-04] MEDS: Lidocaine HCl 1 % MPF 5 ML VIAL SUBCUT (13:01)
[2020-05-04 13:21] VITALS: BP 125/79; PULSE 98; RESP 16; O2SAT 99
[2020-05-04 13:56] VITALS: BP 127/78; PULSE 99; RESP 16; O2SAT 99
[2020-05-04 14:26] VITALS: BP 118/73; PULSE 100; RESP 16; TEMP 37.4; O2SAT 100
== END 2020-05-04 14:55 | disposition home or self-care (01) ==
LOC: HO.SSS 10:22
PROVIDERS: Radiology Diagnostic Radiology; PCP Internal Medicine; Visit Provider Internal Medicine Medical Oncology
DX: R18.8 Other ascites (principal); C56.9 Malignant neoplasm of unspecified ovary; Z85.42 Personal history of malignant neoplasm of other parts of uterus; Z90.710 Acquired absence of both cervix and uterus; N95.1 Menopausal and female climacteric states; G40.909 Epilepsy, unspecified, not intractable, without status epilepticus; I10 Essential (primary) hypertension; F41.9 Anxiety disorder, unspecified; R53.83 Other fatigue; Z79.899 Other long term (current) drug therapy
CPT/HCPCS: 36415; 49083; 80051; 82947; 85025; 85610; 85730; J1642

== ENCOUNTER 2020-05-29 06:32 | Day surgery (SDC) | payer OTHER, SELFPAY ==
[2020-05-25 12:58] VITALS: BMI 20.3
--- NOTE | 2020-05-28 10:18 | HO.ANESPROP2 ---
HPI - Anesthesia Eval Consult details Narrative: 54yo F for Upper Endoscopy Large ascited r/t ovarian CA. Last paracentesis 05/04/20, 5.3L fluid drained. Next paracentesis scheduled for Monday06/01/20. Reviewed with Dr Dada STILES Past Medical History Medical History Anxiety disorder Ascites Bulimia Chronic constipation Endometrial carcinoma Epilepsy Hx of bulimia nervosa Hypertension Ovarian ca Post hysterectomy menopause Recurrent UTI Urinary retention Uterine cancer Family History Family History Father Stroke Mother Hypertension Heart disease Surgical History Surgical History H/O: hysterectomy (~2011) History of esophagogastroduodenoscopy (EGD) Hx of colonoscopy Hx of tonsillectomy Social History Social History Alcohol intake: never Smoking Status: Never smoker Advance Directives: Yes Advance Directives on File: Yes Advance Directives Date on File: 03/29/20 service: No Meds Allergies Allergy/AdvReac Type Severity Reaction Status Date / Time cocaine [Cocaine] Allergy Severe SEIZURE TO Verified 04/28/20 12:19 LIQUID COCAINE codeine [CODEINE] Allergy Severe SEIZURE Verified 04/28/20 12:19 ibuprofen [IBUPROFEN] Allergy Severe SEIZURE Verified 05/25/20 12:50 metronidazole [Flagyl] Allergy Severe Seizure Verified 05/25/20 12:50 paclitaxel [From TAXOL] Allergy Severe HEART Verified 04/28/20 12:19 STOPPED diphenhydramine Allergy Intermediate PALPITATION Verified 05/25/20 12:50 [From BENADRYL] S lactose Allergy Intermediate Constipatio Verified 05/25/20 12:50 n latex [LATEX] Allergy Intermediate RASH Verified 05/25/20 12:50 CHOCOLATE Allergy Intermediate PASSOUT Uncoded 05/25/20 12:50 Home Medications Medication Instructions Recorded Confirmed Type omeprazole 1 cap PO BID 03/30/20 05/25/20 History olaparib 150 mg tablet 150 mg PO BID 04/23/20 05/25/20 History olanzapine 5 mg tablet 5 mg PO BEDTIME 04/28/20 05/28/20 History ondansetron 8 mg disintegrating 8 mg PO Q8H PRN 04/28/20 05/28/20 History tablet Exam Exam Date and Time: May 28, 2020 1018 Height,Weight and Vital Signs: Height 5 ft 3 in Weight 52.1 kg Pertinent Lab Results Pertinent Lab Results: Laboratory Tests 05/28/20 05/28/20 09:37 09:37 WBC 3.6 L Hgb 9.9 L Hct 29.0 L Plt Count 69 L D Sodium 133 L Potassium 4.0 Chloride 100 Carbon Dioxide 22 BUN 22 H D Creatinine 1.00 Assessment and Plan Assessment Anesthesia Assessment: Chart Reviewed
--- NOTE | 2020-05-29 07:05 | PC.NURSE ---
patient dry heaving that just started when she was in the waiting room. myself and md wallace went out to the waiting room to assess patient. patient in wheelchair and with an accompanied adult.
--- NOTE | 2020-05-29 07:07 | PC.NURSE ---
patient moved into another room separately in the waiting room. told patient and friend to let [employer] know if anything changes. awaiting for another anesthesiologist to assess.
--- NOTE | 2020-05-29 07:20 | PC.NURSE ---
patient evaluated by md peraza. patient was no longer dry heaving. pale. patient states shes been feeling like this for awhile. same with the abd pain. moved patient into bed 1 for pre-op
--- NOTE | 2020-05-29 07:21 | HO.ANESPROP2 ---
[facility] Past Medical History Medical History Anxiety disorder Ascites Bulimia Chronic constipation Endometrial carcinoma Epilepsy Hx of bulimia nervosa Hypertension Ovarian ca Post hysterectomy menopause Recurrent UTI Urinary retention Uterine cancer Family History Family History Father Stroke Mother Hypertension Heart disease Surgical History Surgical History H/O: hysterectomy (~2011) History of esophagogastroduodenoscopy (EGD) Hx of colonoscopy Hx of tonsillectomy Social History Social History Alcohol intake: never Smoking Status: Never smoker Advance Directives: Yes Advance Directives on File: Yes Advance Directives Date on File: 03/29/20 service: No Meds Allergies Allergy/AdvReac Type Severity Reaction Status Date / Time cocaine [Cocaine] Allergy Severe SEIZURE TO Verified 04/28/20 12:19 LIQUID COCAINE codeine [CODEINE] Allergy Severe SEIZURE Verified 04/28/20 12:19 ibuprofen [IBUPROFEN] Allergy Severe SEIZURE Verified 05/25/20 12:50 metronidazole [Flagyl] Allergy Severe Seizure Verified 05/25/20 12:50 paclitaxel [From TAXOL] Allergy Severe HEART Verified 04/28/20 12:19 STOPPED diphenhydramine Allergy Intermediate PALPITATION Verified 05/25/20 12:50 [From BENADRYL] S lactose Allergy Intermediate Constipatio Verified 05/25/20 12:50 n latex [LATEX] Allergy Intermediate RASH Verified 05/25/20 12:50 CHOCOLATE Allergy Intermediate PASSOUT Uncoded 05/25/20 12:50 Home Medications Medication Instructions Recorded Confirmed Type omeprazole 1 cap PO BID 03/30/20 05/25/20 History olaparib 150 mg tablet 150 mg PO BID 04/23/20 05/25/20 History olanzapine 5 mg tablet 5 mg PO BEDTIME 04/28/20 05/28/20 History ondansetron 8 mg disintegrating 8 mg PO Q8H PRN 04/28/20 05/28/20 History tablet Exam Exam Date and Time: May 29, 202021 Height,Weight and Vital Signs: Height 5 ft 3 in Weight 52.1 kg Airway Mallampati Class: II TM Dist: >3cm Neck ROM: Full Loose/Missing/Broken Teeth: No Heart: RRR Lungs: CTA Assessment and Plan Assessment Anesthesia Assessment: Anesthesia Plan Discussed and Chart Reviewed Final Anesthetic Review NPO: Yes ASA Class: III Final Preanesthetic Review: Meds/Allgs Chart Reviewed, Consent Obtained/Reviewed and Anes Risks/Benef Reviewed Patient Risk: Intermediate Procedure Risk: Intermediate Anesthetic Plan Anesthetic Plan: MAC: Disposition: Standard PACU
--- NOTE | 2020-05-29 07:21 | PC.NURSE ---
patient is scared. assisted with changing patient. anesthesia by bedside. patient wants to proceed. hob 90 degrees. aware of plan of care
[2020-05-29 07:29] VITALS: BP 96/69; PULSE 115; RESP 16; TEMP 36.9; O2SAT 100
--- NOTE | 2020-05-29 07:55 | PC.NURSE ---
applied 3l nc per md order.
[2020-05-29] MEDS: Lactated Ringers 1,000 ML 50 ML IVCONT (07:56)
[2020-05-29] MEDS: ondansetron HCL 4 MG/2 ML VIAL IVPUSH (07:58)
--- NOTE | 2020-05-29 08:00 | PC.NURSE ---
medicated for nausea. still no dry heaving. resting comfortably. patient states the oxygen helped with her pain. having back spasms.
--- NOTE | 2020-05-29 08:02 | MHC.SHP ---
Pre-Procedural Eval Section A The patient is an INPATIENT: No Section B Chief Complaint: Upper Abd pain Relevant Social History: None Present Medications: see Short Stay Collaborative assessment Medical History: Significant History ( CHRONIC UTIs FROM CHEMO MED. BRCA GENE+ . H/O INFERTILITY . MAMMO q6mo. BULEMIA SINCE AGE 12 yo; LOTS OF BODY ISSUES . RECURRENT OVARIAN CANCER . ) History of Previous Operations: Relevant previous surgery/procedure and date(s) (Radical Hysterectomy 2012 tonsilectomy ) Allergies: Allergies Allergy/AdvReac Type Severity Reaction Status Date / Time cocaine [Cocaine] Allergy Severe SEIZURE TO Verified 04/28/20 12:19 LIQUID COCAINE codeine [CODEINE] Allergy Severe SEIZURE Verified 04/28/20 12:19 ibuprofen [IBUPROFEN] Allergy Severe SEIZURE Verified 05/25/20 12:50 metronidazole [Flagyl] Allergy Severe Seizure Verified 05/25/20 12:50 paclitaxel [From TAXOL] Allergy Severe HEART Verified 04/28/20 12:19 STOPPED diphenhydramine Allergy Intermediate PALPITATION Verified 05/25/20 12:50 [From BENADRYL] S lactose Allergy Intermediate Constipatio Verified 05/25/20 12:50 n latex [LATEX] Allergy Intermediate RASH Verified 05/25/20 12:50 CHOCOLATE Allergy Intermediate PASSOUT Uncoded 05/25/20 12:50 Review of Systems Sugical H&P ROS: Negative: Cardiovascular, Respiratory, Neurological, Genitourinary and Musculoskeletal and Yes, Specify: Constitution (fatigue), Psychiatric (depression) and Gastrointestinal (abdominal pain, nausea, vomiting, bloating) Exam Surgical H&P Exam: Normal: Heart, Normal: Lungs and Normal: Extremities and Significant Findings: Abdomen (distended due to ascites and diffuse tenderness) Plan Diagnosis/Plan: Unchanged Patient has been examined and remains a candidate for the planned procedure
--- NOTE | 2020-05-29 08:44 | PM.OP ---
Brief Operative Note Date of Service: 05/29/20 Pre-op diagnosis: GERD, nausea and vomting Post-op diagnosis: other (Gastritis, gastric polyp) Procedure: FLEXIBLE TRANSORAL UPPER GASTROINTESTINAL ENDOSCOPY Consent: Indications for the procedure and potential complications of bleeding, perforation, reaction to medications and missed diagnosis were discussed with the patient and informed consent was obtained. Instrument: Olympus GIF H 190 mid size upper endoscope Monitoring: Vital signs and clinical assessment, continuous EKG monitoring, Pulse oximetry, Carbon Dioxide monitoring and blood pressure monitoring were done throughout the procedure. Procedure: The patient was placed in the left lateral decubitis position and pre-procedure medications were administered and a bite block was placed. The endoscope was inserted into the mouth and advanced under direct vision to the third part of duodenum. A careful inspection was made as the upper endoscope was withdrawn including a retroflexed examination of the proximal stomach; Findings and interventions are described below. Findings: Larynx: Normal Esophagus: GE junction at 35 cms. No esophagitis or Perez Stomach: Mild gastric erythema. Biopsies were obtained. Decreased size of the stomach due to extrinsic compression - no mucosal mass was visualized. A 7-8 mm benign appearing polyp just distal to the cardia - biopsied. Grade 2 flap valve on retroflexed examination of the cardia. Duodenum: Normal bulb and extrinsic compression of descending duodenum without obvious mass. Intervention: Biopsies as noted above Impression and Post Procedure Diagnosis: Endoscopy Findings: STOMACH: Mild gastric erythema. Biopsies were obtained. Decreased size of the stomach due to extrinsic compression - no mass visualized. A 7-8 mm benign appearing polyp just distal to the cardia - biopsied. DUODENUM: Normal bulb and extrinsic compression of descending duodenum without obvious mass. Plan: Await pathology results Continue intermittent LVP as needed. Above findings were reviewed with the patient and she was advised to resume Omeprazole once daily. Surgeon: Cara Arshad MD Anesthesia: MAC (Dr Vigil) Estimated blood loss (mL): 0 Pathology: other (A. Gastric antrum, B. Gastric polyp) Condition: stable Disposition: PACU
[2020-05-29 09:10] VITALS: BP 83/45; PULSE 108; RESP 18; TEMP 36.7; O2SAT 100
[2020-05-29 09:24] VITALS: BP 111/83; PULSE 96; RESP 18; O2SAT 100
[2020-05-29 09:28] VITALS: BP 110/86; PULSE 96; RESP 18; O2SAT 100
--- NOTE | 2020-05-29 10:15 | HO.POSTANES ---
Post Anesthesia Evaluation Post Anesthesia Evaluation Vital Signs: Vital Signs Temp Pulse Resp BP Pulse Ox 05/29/20 09:28 98.0 F 96 18 110/86 100 05/29/20 09:24 96 18 111/83 100 05/29/20 09:10 98.0 F 108 H 18 83/45 L 100 05/29/20 07:29 98.4 F 115 H 16 96/69 100 Anesthesia: Monitored Mental Status: Awake Pain Control: Satisfactory Nausea/Vomiting: None Hydration: Adequate Anesthesia-Related Issues: No Anes. Related Issues
--- NOTE | 2020-05-29 19:29 | W.PM.OPN ---
Operative Note Operative Note Date of Service: 05/29/20 Narrative: Date of Service: 05/29/20 Pre-op diagnosis: GERD, nausea and vomting Post-op diagnosis: other (Gastritis, gastric polyp) Procedure: FLEXIBLE TRANSORAL UPPER GASTROINTESTINAL ENDOSCOPY Consent: Indications for the procedure and potential complications of bleeding, perforation, reaction to medications and missed diagnosis were discussed with the patient and informed consent was obtained. Instrument: Olympus GIF H 190 mid size upper endoscope Monitoring: Vital signs and clinical assessment, continuous EKG monitoring, Pulse oximetry, Carbon Dioxide monitoring and blood pressure monitoring were done throughout the procedure. Procedure: The patient was placed in the left lateral decubitis position and pre-procedure medications were administered and a bite block was placed. The endoscope was inserted into the mouth and advanced under direct vision to the third part of duodenum. A careful inspection was made as the upper endoscope was withdrawn including a retroflexed examination of the proximal stomach; Findings and interventions are described below. Findings: Larynx: Normal Esophagus: GE junction at 35 cms. No esophagitis or Perez Stomach: Mild gastric erythema. Biopsies were obtained. Decreased size of the stomach due to extrinsic compression - no mucosal mass was visualized. A 7-8 mm benign appearing polyp just distal to the cardia - biopsied. Grade 2 flap valve on retroflexed examination of the cardia. Duodenum: Normal bulb and extrinsic compression of descending duodenum without obvious mass. Intervention: Biopsies as noted above Impression and Post Procedure Diagnosis: Endoscopy Findings: STOMACH: Mild gastric erythema. Biopsies were obtained. Decreased size of the stomach due to extrinsic compression - no mass visualized. A 7-8 mm benign appearing polyp just distal to the cardia - biopsied. DUODENUM: Normal bulb and extrinsic compression of descending duodenum without obvious mass. Patient's symptoms of nausea and vomiting are likely related to ascites, extrinsic compression of stomach and small bowel with peritoneal implants causing partial SBO. Plan: Await pathology results Continue intermittent LVP as needed. Above findings were reviewed with the patient and she was advised to resume Omeprazole once daily. Surgeon: Cara Arshad MD Anesthesia: MAC (Dr Vigil) Estimated blood loss (mL): 0 Pathology: other (A. Gastric antrum, B. Gastric polyp) Condition: stable Disposition: PACU
== END 2020-05-29 10:18 | disposition home or self-care (01) ==
PROVIDERS: PCP Internal Medicine; Visit Provider Internal Medicine Gastroenterology
PROC: 0DJ08ZZ Inspection of Upper Intestinal Tract, Via Natural or Artificial Opening Endoscopic (ICD-10-PCS; CPT 43235; principal; 2020-05-29 08:30)
DX: K29.70 Gastritis, unspecified, without bleeding (principal); K31.7 Polyp of stomach and duodenum; F50.2 Bulimia nervosa; C56.9 Malignant neoplasm of unspecified ovary; R18.0 Malignant ascites; Z85.42 Personal history of malignant neoplasm of other parts of uterus; Z88.8 Allergy status to other drugs, medicaments and biological substances; Z90.710 Acquired absence of both cervix and uterus
CPT/HCPCS: 43239; 88305; 88342; J1642; J2405

== ENCOUNTER 2020-06-01 08:06 | Emergency (ER) | payer OTHER, SELFPAY ==
--- NOTE | 2020-06-01 08:27 | ECG_ITS ---
Test Reason : ABD PAIN Blood Pressure : / mmHG Vent. Rate : 109 BPM Atrial Rate : 109 BPM P-R Int : 128 ms QRS Dur : 062 ms QT Int : 354 ms P-R-T Axes : 049 020 037 degrees QTc Int : 476 ms Sinus tachycardia Cannot rule out Anterior infarct (cited on or before 02-MAR-2020) Abnormal ECG When compared with ECG of 29-MAR-2020 12:05, No significant changes seen Referred By: Jackie Soto Electronically Signed By:EJ TAYLOR
--- NOTE | 2020-06-01 08:28 | XR_ITS ---
EXAMINATION: XR CHEST CLINICAL INFORMATION: Shortness of breath COMPARISON: Previous chest x-ray most recent 03/29/2020 TECHNIQUE: 2 views of the chest were obtained. FINDINGS: The cardiac and mediastinal contours are normal. The lungs are clear. There is no pleural effusion or pneumothorax. There is a right jugular port with tip projecting over the cavoatrial junction. The spleen may be enlarged. Bony structures are unremarkable. XR/XR chest 2V IMPRESSION: No evidence for acute disease in the chest.
[2020-06-01 08:30] VITALS: BP 110/77; PULSE 107; RESP 18; TEMP 36.6; O2SAT 100; BMI 20.2
--- NOTE | 2020-06-01 08:42 | ED.NAVMDI ---
HPI - Nausea/Vomiting/Diarrhea General Chief complaint: Dyspnea Stated complaint: sob,cancer Time Seen by Provider: 06/01/20 08:17 Source: patient Mode of arrival: ambulatory History of Present Illness HPI Narrative: 54-year-old female with a past medical history of anxiety, chronic constipation, endometrial carcinoma, hypertension, urinary retention, uterine cancer, ovarian cancer currently on chemotherapy, ascites with monthly paracentesis presenting to ED complaining of abdominal pain, nausea, and vomiting since Monday with also associated SOB after emesis. Admits is scheduled to have ultrasound-guided paracentesis today at 11:30 a.m. denies fever, chills, cough, chest pain, dysuria / hematuria, hematemesis MD elicited complaint: nausea, vomiting and abdominal pain Related Data Home Medications Medication Instructions Recorded Confirmed omeprazole 1 cap PO BID 03/30/20 05/25/20 olaparib 150 mg tablet 150 mg PO BID 04/23/20 05/25/20 olanzapine 5 mg tablet 5 mg PO BEDTIME 04/28/20 05/28/20 ondansetron 8 mg disintegrating 8 mg PO Q8H PRN 04/28/20 05/28/20 tablet Previous Rx's Medication Instructions Recorded bisacodyl [Dulcolax (bisacodyl)] 5 mg PO BEDTIME PRN 30 Days #30 tab 03/31/20 sennosides [senna] 8.6 mg PO DAILY PRN #30 tab 03/31/20 potassium chloride 20 meq PO DAILY #30 cap 05/01/20 sennosides-docusate sodium 1 tab-cap PO BEDTIME #60 tab 05/01/20 [Senna-S] dicyclomine 10 mg PO TID #90 cap 05/06/20 oxycodone 5 mg PO Q4H PRN #30 cap 05/28/20 omeprazole 20 mg capsule,delayed 20 mg PO DAILY 60 Days #60 cap 05/29/20 release Allergies Allergy/AdvReac Type Severity Reaction Status Date / Time cocaine [Cocaine] Allergy Severe SEIZURE TO Verified 04/28/20 12:19 LIQUID COCAINE codeine [CODEINE] Allergy Severe SEIZURE Verified 04/28/20 12:19 ibuprofen [IBUPROFEN] Allergy Severe SEIZURE Verified 05/25/20 12:50 metronidazole [Flagyl] Allergy Severe Seizure Verified 05/25/20 12:50 paclitaxel [From TAXOL] Allergy Severe HEART Verified 04/28/20 12:19 STOPPED diphenhydramine Allergy Intermediate PALPITATION Verified 05/25/20 12:50 [From BENADRYL] S lactose Allergy Intermediate Constipatio Verified 05/25/20 12:50 n latex [LATEX] Allergy Intermediate RASH Verified 05/25/20 12:50 CHOCOLATE Allergy Intermediate PASSOUT Uncoded 05/25/20 12:50 Review of Systems Review of Systems: Constitutional: No Weight loss, No Fever, No Chills Cardiovascular: No Chest Pain, + SOB, No Dyspnea on Exertion, No Edema, No Palpitations Respiratory: No Cough, No Sputum, No Wheezing Gastrointestinal: + Nausea, + Vomiting, No Diarrhea, + Constipation, + Abdominal pain, No Hematochezia Genitourinary: No irregular bleeding, No Dysuria, No Urinary Frequency, No Hematuria,No Urinary Flow Changes Musculoskeletal: No joint pain, No Myalgias, No Joint Swelling Skin: No Skin Lesions, No rash Yes all other systems are reviewed and are negative PMFSH Past Medical History Attestation statement: The following information was validated with the patient. Medical History Anxiety disorder Ascites Bulimia Chronic constipation Endometrial carcinoma Epilepsy Hx of bulimia nervosa Hypertension Ovarian ca Post hysterectomy menopause Recurrent UTI Urinary retention Uterine cancer Surgical History H/O: hysterectomy (~2011) History of esophagogastroduodenoscopy (EGD) Hx of colonoscopy Hx of tonsillectomy Family History Family History Father Stroke Mother Hypertension Heart disease Social History Social History Alcohol intake: never Smoking Status: Never smoker Use of substances other than those prescribed or required for medical reasons: No Advance Directives: Yes Advance Directives on File: Yes Advance Directives Date on File: 03/29/20 service: No Physical Exam Vital Signs: Vital Signs: Last Vital Signs Temp 98.6 F 06/01/20 16:12 Pulse 102 H 06/01/20 16:12 Resp 20 06/01/20 16:12 BP 106/67 06/01/20 16:12 Pulse Ox 100 06/01/20 16:12 Body Mass Index 20.2 Const: General: cooperative and ill appearing Nutritional Appearance: cachectic Orientation/consciousness: patient oriented x3 Limitations: no limitations HENMT: Head: Yes normal to inspection Ears: hearing grossly normal bilaterally General nose exam: Normal external nose present Face and sinus: Yes normal facial exam Eyes: General: appearance normal, both eyes and all related structures EOM: EOMs intact bilaterally Neck: Neck: Yes normal visual inspection and Yes no meningeal signs Resp: Effort & Inspection: normal respiratory effort Auscultation: clear to auscultation bilaterally, no rales and no wheezes Cardio: Rate: regular rate Heart sounds: S1 normal heart sound present and S2 normal heart sound present GI: Other: abdomen distended, tense, nontender, no rebound or guarding Inspection: Yes normal to inspection and Yes distended Palpation (GI): Soft to palpation, Firmness to palpation present (GI), nontender, no guarding and not rigid Skin: Rashes: no rashes Wounds: no wounds Neuro: General: patient oriented x3 and no meningeal signs Gait exam (Neuro): Normal gait present Extrem: General: Yes normal to inspection Course Course Course Narrative: - H/H at baseline, BUN/Cr elevated likely 2/2 dehydration > will give 2L IVF and repeat prior to patients scheduled paracentesis - CXR unremarkable - patient will be going to ultrasound guided paracentesis at 11:30 a.m., outpatient - 1237-- patient currently getting paracentesis, repeat chem7 with slight improvement in Cr. 1.52 - 5.6L removed during paracentesis, pt now denies SOB, reports symptomatic improvement will replete albumin. Discussed kidney dysfunction, patient agreeable to admission > case discussed with hospitalist, would like additional repeat BMP after paracentesis/IVF. -1700-- repeat BMP with resolution of JAD labs discussed with patient including worrisome s/s and strict return precautions, pt verbalized understanding and feels safe for dc home MDM - Nausea/Vomiting/Diarrhea MDM Narrative Medical decision making narrative: 54-year-old female with a past medical history of anxiety, chronic constipation, endometrial carcinoma, hypertension, urinary retention, uterine cancer, ovarian cancer currently on chemotherapy, ascites with monthly paracentesis presenting to ED complaining of abdominal pain, nausea, and vomiting since Monday with also associated SOB after emesis. On exam mildly tachycardic liekly from dehydration, abdomen distended /tense, nontender. Concern for ascites causing symptoms and dehydration. Low concern for SBP with abdomen nontender. Low concern for PE/ COVID-19/pneumonia with SOB only after emesis. plan: EKG, labs, UA, CXR, contact ultrasound /radiology for scheduled paracentesis Lab Data Result diagrams: 06/01/20 09:02 06/01/20 16:10 Labs: Lab Results 06/01/20 06/01/20 06/01/20 Range/Units 09:02 09:02 09:02 WBC 3.7 L (4.8-10.8) X10*3/uL RBC 2.40 L (4.20-5.50) X10*6/uL Hgb 9.0 L (12.0-16.0) g/dl Hct 25.6 L (37-47) % MCV 106.7 H (80-98) fL MCH 37.5 H (27.0-33.0) pg MCHC 35.2 H (31.0-35.0) g/dl RDW 19.0 H (11.0-16.0) % Plt Count 112 L D (160-400) X10*3/uL MPV 12.6 H (9.4-12.3) fL Immature Gran % (Auto) 1.1 H (0.0-0.4) % Neut % (Auto) 72.6 (45-73) % Lymph % (Auto) 18.5 L (20-40) % [place] % (Auto) 7.8 (2-11) % Eos % (Auto) 0.0 (0-4) % Baso % (Auto) 0.0 (0-2) % Lymph # (Auto) 0.7 L (1.2-4.9) X10*3/uL [place] # (Auto) 0.3 (0.1-1.2) X10*3/uL Eos # (Auto) 0.0 (0.0-0.4) X10*3/uL Baso # (Auto) 0.0 (0.0-0.2) X10*3/uL Abs Immat Gran (auto) 0.04 H (0.00-0.03) X10*3/uL Absolute Neuts (auto) 2.7 (2.0-8.3) X10*3/uL Absolute Nucleated RBC 0.020 H (0.0-0.012) X10*3/uL Nucleated RBC % (auto) 0.5 H (0.0-0.2) /100WBC Smear Tech's Comments VERIFIED PT 11.5 (10.8-13.0) SEC INR 1.0 (0.9-1.1) APTT 28.0 (24.1-38.0) SEC Sodium 131 L (135-145) mmol/L Potassium 4.4 (3.3-5.1) mmol/l Chloride 99 (96-108) mmol/L Carbon Dioxide 19 L (22-29) mmol/L Anion Gap 17 (12-20) BUN 38 H D (9-16) mg/dL Creatinine 1.63 H (0.5-1.4) mg/dL Estim Creat Clear Calc 31.6 Estimated GFR 33 Random Glucose 136 H (60-115) mg/dL Calcium 8.7 D (8.4-10.2) mg/dL Magnesium (1.6-2.6) mg/dL Total Bilirubin (0.0-1.0) mg/dL Direct Bilirubin (0.0-0.5) mg/dL AST (5-31) U/L ALT (0-31) U/L Alkaline Phosphatase (39-117) U/L Total Protein (6.5-8.0) g/dL Albumin (3.5-5.0) g/dL Lipase (8-78) U/L 06/01/20 06/01/20 06/01/20 Range/Units 09:02 11:31 16:10 WBC (4.8-10.8) X10*3/uL RBC (4.20-5.50) X10*6/uL Hgb (12.0-16.0) g/dl Hct (37-47) % MCV (80-98) fL MCH (27.0-33.0) pg MCHC (31.0-35.0) g/dl RDW (11.0-16.0) % Plt Count (160-400) X10*3/uL MPV (9.4-12.3) fL Immature Gran % (Auto) (0.0-0.4) % Neut % (Auto) (45-73) % Lymph % (Auto) (20-40) % [place] % (Auto) (2-11) % Eos % (Auto) (0-4) % Baso % (Auto) (0-2) % Lymph # (Auto) (1.2-4.9) X10*3/uL [place] # (Auto) (0.1-1.2) X10*3/uL Eos # (Auto) (0.0-0.4) X10*3/uL Baso # (Auto) (0.0-0.2) X10*3/uL Abs Immat Gran (auto) (0.00-0.03) X10*3/uL Absolute Neuts (auto) (2.0-8.3) X10*3/uL Absolute Nucleated RBC (0.0-0.012) X10*3/uL Nucleated RBC % (auto) (0.0-0.2) /100WBC Smear Tech's Comments PT (10.8-13.0) SEC INR (0.9-1.1) APTT (24.1-38.0) SEC Sodium 131 L 133 L (135-145) mmol/L Potassium 4.5 4.3 (3.3-5.1) mmol/l Chloride 101 102 (96-108) mmol/L Carbon Dioxide 19 L 20 L (22-29) mmol/L Anion Gap 16 15 (12-20) BUN 37 H 35 H (9-16) mg/dL Creatinine 1.49 H 1.29 (0.5-1.4) mg/dL Estim Creat Clear Calc 34.6 40.0 Estimated GFR 36 43 Random Glucose 124 H 89 (60-115) mg/dL Calcium 8.1 L D 7.9 L (8.4-10.2) mg/dL Magnesium 1.9 (1.6-2.6) mg/dL Total Bilirubin 0.9 (0.0-1.0) mg/dL Direct Bilirubin 0.5 (0.0-0.5) mg/dL AST 20 (5-31) U/L ALT 21 (0-31) U/L Alkaline Phosphatase 108 D (39-117) U/L Total Protein 5.0 L (6.5-8.0) g/dL Albumin 3.2 L (3.5-5.0) g/dL Lipase 37 (8-78) U/L Discharge Plan Discharge Clinical Impression: S/P abdominal paracentesis, Nausea and vomiting, Acute dehydration Patient Disposition: Home, Self-Care Instructions: Paracentesis (DC), Ascites (ED) Additional Instructions: you had a paracentesis today in the ED 5.6 liters were removed you were dehydrated and noted to have an elevation in your kidney function after fluid was removed from your belly and your were give fluid your kidney dysfunction resolved follow up with your oncologist and PCP if you develop worsening swelling, chest pain, shortness of breath or fever return to the ED Prescriptions: No Action omeprazole 20 mg capsule,delayed release(DR/EC) 20 mg PO DAILY 60 Days Qty: 60 RF: 3 sennosides-docusate sodium [Senna-S] 8.6-50 mg Tablet 1 tab-cap PO BEDTIME Qty: 60 RF: 3 potassium chloride 10 mEq Capsule, Extended Release 20 meq PO DAILY Qty: 30 RF: 3 oxycodone 5 mg Capsule 5 mg PO Q4H PRN (Reason: Breakthrough Pain, Severe) Qty: 30 RF: 0 omeprazole 20 mg capsule,delayed release(DR/EC) 1 cap PO BID RF: 0 sennosides [senna] 8.6 mg tablet 8.6 mg PO DAILY PRN (Reason: constipation) Qty: 30 RF: 0 bisacodyl [Dulcolax (bisacodyl)] 5 mg tablet,delayed release (DR/EC) 5 mg PO BEDTIME PRN (Reason: constipation) 30 Days Qty: 30 RF: 0 dicyclomine 10 mg Capsule 10 mg PO TID Qty: 90 RF: 3 ondansetron 8 mg tablet,disintegrating 8 mg PO Q8H PRN (Reason: Nausea And Vomiting) RF: 0 olanzapine 5 mg tablet 5 mg PO BEDTIME RF: 0 Lynparza 150 mg tablet 150 mg PO BID RF: 0 Referrals: Aquiles Quiros MD [Primary Care Provider] - 2 days Tom Washburn MD [Physician] - 2 days
[2020-06-01] MEDS: ondansetron HCL 4 MG/2 ML VIAL IVPUSH (09:15)
[2020-06-01] MEDS: oxyCODONE HCl Immed Release 5 MG TABLET PO (09:15)
[2020-06-01 09:18] LABS: MANUAL DIFF FLAG SCAN; Monocytes Absolute Auto 0.3 X10*3/uL (0.1-1.2); PLT CLUMP 1; Prothrombin Time 11.5 SEC (10.8-13.0); SCAN SMEAR FLAG 1
[2020-06-01 09:20] LABS: Hematocrit 25.6 % (37-47); Imm Gran Abs Auto 0.04 X10*3/uL (0.00-0.03); Imm Gran Pct Auto 1.1 % (0.0-0.4); Lymphocytes Absolute Auto 0.7 X10*3/uL (1.2-4.9); Lymphocytes Percent Auto 18.5 % (20-40); Mean Corpuscular HGB Conc 35.2 g/dl (31.0-35.0); Mean Corpuscular Hemoglobin 37.5 pg (27.0-33.0); Mean Corpuscular Volume 106.7 fL (80-98); Mean Platelet Volume 12.6 fL (9.4-12.3); Monocytes Percent Auto 7.8 % (2-11); NRBC Pct Auto 0.5 /100WBC (0.0-0.2); Neutrophils Absolute Auto 2.7 X10*3/uL (2.0-8.3); Neutrophils Percent Auto 72.6 % (45-73); Platelet Count 112 X10*3/uL (160-400); White Blood Count 3.7 X10*3/uL (4.8-10.8)
--- NOTE | 2020-06-01 09:20 | PC.NURSE ---
Addendum entered by Felipe Moore 06/01/20 09:30: pt to brought to IR at 11:30 today, had previous appointment for paracentesis. provider aware. Original Note: pt vomitting very shortly following taking po medication.
[2020-06-01 09:37] LABS: Anion Gap 17 (12-20); Blood Urea Nitrogen 38 mg/dL (9-16); Calcium 8.7 mg/dL (8.4-10.2); Carbon Dioxide 19 mmol/L (22-29); Chloride 99 mmol/L (96-108); Creatinine Clr Calc Pharmacy 31.6; Estimated Glomerular Filt Rate 33; Glucose Random 136 mg/dL (60-115); Potassium 4.4 mmol/l (3.3-5.1); Sodium 131 mmol/L (135-145)
[2020-06-01 09:40] LABS: Alanine Aminotransferase 21 U/L (0-31); Albumin Level 3.2 g/dL (3.5-5.0); Alkaline Phosphatase 108 U/L (39-117); Aspartate Amino Transferase 20 U/L (5-31); Bilirubin Direct 0.5 mg/dL (0.0-0.5); Bilirubin Total 0.9 mg/dL (0.0-1.0); Lipase 37 U/L (8-78); Magnesium 1.9 mg/dL (1.6-2.6)
[2020-06-01] MEDS: Morphine Sulfate 4 MG/ML CARTRIDGE 2 MG IVPUSH (09:42)
[2020-06-01] MEDS: Metoclopramide HCl 10 MG/2 ML VIAL IVPUSH (09:42)
--- NOTE | 2020-06-01 10:12 | US_ITS ---
EXAMINATION: ULTRASOUND-GUIDED THERAPEUTIC PARACENTESIS. CLINICAL INFORMATION: Ovarian neoplasm, ascites, pain and SOB. COMPARISON: Ultrasound-guided paracentesis. TECHNIQUE: Following explaining ultrasound-guided paracentesis procedure benefits and risk, a written consent was obtained. Patient was placed supine and preliminary ultrasound imaging was obtained through the abdomen. An optimal site was selected, marked, cleaned and draped in usual sterile manner. 1% lidocaine was injected at marked site. Through a small skin incision a 5 [place] Yueh catheter was advanced from the skin into the peritoneal space. After observing fluid return, stylet was withdrawn and catheter connected to vacuum bottle via connecting cannula. After obtaining all fluid and observing no fluid remaining and no retention seen, catheter was withdrawn without immediate complications. Complete hemostasis achieved at puncture site. Simple banded applied postprocedure. Patient tolerated procedure extremely well. FINDINGS: On preliminary ultrasound imaging there is diffuse ascites most localized in left lower quadrant. The area was marked on the skin, cleaned and draped in usual sterile manner. 1% lidocaine was injected at puncture site. Through a small skin incision a 5 [place] Yueh catheter was advanced into peritoneal space. After obtaining fluid return was withdrawn and catheter connected to vacuum bottle. After obtaining all fluid and observing no more fluid return, catheter was withdrawn and complete hemostasis achieved. Sterile dressing applied postprocedure. Repeat imaging was performed and revealed no fluid remaining. US/US paracentesis abd w/image IMPRESSION: Successful ultrasound-guided paracentesis performed with approximately 5.6 L of dark reddish fluid was removed for therapeutic reasons.
[2020-06-01] MEDS: 0.9 % Sodium Chloride 1,000 ML 999 ML IVCONT ×2 (10:28→11:05)
[2020-06-01 10:54] LABS: SLIDE REVIEW VERIFIED
[2020-06-01 11:03] VITALS: BP 120/73; PULSE 107; RESP 18; TEMP 36.5; O2SAT 100
--- NOTE | 2020-06-01 11:49 | PC.NURSE ---
pt taken to IR via stretcher for paracentesis.
[2020-06-01] MEDS: Lidocaine HCl 1 % MPF 5 ML VIAL SUBCUT (12:43)
[2020-06-01 12:45] LABS: Anion Gap 16 (12-20); Blood Urea Nitrogen 37 mg/dL (9-16); Calcium 8.1 mg/dL (8.4-10.2); Carbon Dioxide 19 mmol/L (22-29); Chloride 101 mmol/L (96-108); Creatinine Clr Calc Pharmacy 34.6; Estimated Glomerular Filt Rate 36; Glucose Random 124 mg/dL (60-115); Potassium 4.5 mmol/l (3.3-5.1); Sodium 131 mmol/L (135-145)
[2020-06-01] MEDS: Albumin Human 25 % 100 ML IV (13:44)
[2020-06-01] MEDS: Magnesium Hydrox/Alum Hydrox 30 ML ORAL.SUSP PO (16:01)
[2020-06-01] MEDS: Lidocaine HCl Viscous 2 % 15 ML SOLUTION MUCOUS MEM (16:01)
--- NOTE | 2020-06-01 16:02 | PC.NURSE ---
pt complains of heart burn, provider aware, given gi cocktail. tolerating po w/o issue
[2020-06-01 16:12] VITALS: BP 106/67; PULSE 102; RESP 20; TEMP 37; O2SAT 100
[2020-06-01 16:54] LABS: Anion Gap 15 (12-20); Blood Urea Nitrogen 35 mg/dL (9-16); Calcium 7.9 mg/dL (8.4-10.2); Carbon Dioxide 20 mmol/L (22-29); Chloride 102 mmol/L (96-108); Estimated Glomerular Filt Rate 43; Glucose Random 89 mg/dL (60-115); Potassium 4.3 mmol/l (3.3-5.1); Sodium 133 mmol/L (135-145)
--- NOTE | 2020-06-01 17:35 | PC.NURSE ---
message left on pt answering machine regarding leaving discharge paper work.
== END 2020-06-01 17:32 | disposition home or self-care (01) ==
PROVIDERS: Physician Assistant; Emergency Provider Emergency Medicine; PCP Internal Medicine
DX: E86.0 Dehydration (principal); R11.2 Nausea with vomiting, unspecified; I10 Essential (primary) hypertension; C54.1 Malignant neoplasm of endometrium; C79.60 Secondary malignant neoplasm of unspecified ovary; Z92.21 Personal history of antineoplastic chemotherapy; Z87.440 Personal history of urinary (tract) infections
CPT/HCPCS: 36415; 49083; 71046; 80048; 80076; 83690; 83735; 85025; 85610; 85730; 93005; 96361; 96374; 96375; 99284; J2270; J2405; J2765; P9047

== ENCOUNTER → 2020-06-02 13:46 | Outpatient (BNVA) | payer OTHER, SELFPAY | PROVIDERS: PCP Internal Medicine; Visit Provider Internal Medicine Gastroenterology | DX: Z76.89 Persons encountering health services in other specified circumstances (principal) ==

== ENCOUNTER 2020-06-09 13:12 | Emergency (ER) | payer OTHER, SELFPAY ==
[2020-06-09 13:27] VITALS: BP 119/80; PULSE 100; RESP 18; TEMP 36.2; O2SAT 100
--- NOTE | 2020-06-09 13:41 | XR_ITS ---
EXAMINATION: XR RIBS, LEFT CLINICAL INFORMATION: Fall COMPARISON: 06/01/2020 TECHNIQUE: 3 views of the left ribs were obtained. Chest 1 view. FINDINGS Slightly rotated positioning. Right sided Port-A-Cath, tip in the cavoatrial junction. Cardiac leads overlie the chest. Lungs are clear. No consolidation, pneumothorax, or pleural effusion. The cardiomediastinal silhouette and pulmonary vasculature are normal. No acute displaced rib fractures identified. XR/XR ribs LT min 3V w CXR1V IMPRESSION: No evidence of acute pulmonary process. No acute displaced rib fractures are identified.
--- NOTE | 2020-06-09 13:45 | ED_ITS ---
HPI - Nausea/Vomiting/Diarrhea General Chief complaint: Nausea/Vomiting/Diarrhea <HARITHA Valdez Last Filed: 06/09/20 17:45> Stated complaint: N/V <HARITHA Valdez - Last Filed: 06/09/20 17:45> Time Seen by Provider: 06/09/20 13:30 <HARITHA Valdez - Last Filed: 06/09/20 17:45> Source: patient <HARITHA Valdez Last Filed: 06/09/20 17:45> Mode of arrival: ambulatory <HARITHA Valdez Last Filed: 06/09/20 17:45> History of Present Illness HPI Narrative: 54-year-old female with a past medical history of anxiety, chronic constipation, endometrial carcinoma, hypertension, urinary retention, uterine cancer, ovarian cancer currently on chemotherapy, ascites with monthly paracentesis presenting to ED complaining of nausea, vomiting/dry heaving, and dizziness x couple days with fall at home last night. Denies head trauma or LOC last night, does admit to left-sided rib and left knee pain. Patient admits to drinking fluids, but decreased p.o. intake due to nausea/vomiting. States when stands/changes position develops room spinning dizziness. Denies fever, chills, headache, abdominal pain, dysuria/hematuria, SOB/CP <HARITHA Valdez Last Filed: 06/09/20 17:45> MD elicited complaint: nausea and vomiting <HARITHA Valdez Last Filed: 06/09/20 17:45> Related Data Home medications: Home Medications Medication Instructions Recorded Confirmed olaparib 150 mg tablet 150 mg PO BID 04/23/20 06/02/20 olanzapine 5 mg tablet 5 mg PO BEDTIME 04/28/20 06/12/20 ondansetron 8 mg disintegrating 8 mg PO Q8H PRN 04/28/20 06/02/20 tablet omeprazole 20 mg PO BID 06/12/20 06/12/20 Previous Rx's Medication Instructions Recorded bisacodyl [Dulcolax (bisacodyl)] 5 mg PO BEDTIME PRN 30 Days #30 tab 03/31/20 potassium chloride 20 meq PO DAILY #30 cap 05/01/20 sennosides-docusate sodium 1 tab-cap PO BEDTIME #60 tab 05/01/20 [Senna-S] dicyclomine 10 mg PO TID #90 cap 05/06/20 oxycodone 5 mg PO Q4H PRN #30 cap 05/28/20 omeprazole 40 mg capsule,delayed 40 mg PO BID 30 Days #60 cap 06/02/20 release meclizine 25 mg PO TID PRN #14 tab 06/09/20 <HARITHA Valdez Last Filed: 06/09/20 17:45> Allergies/Adverse reactions: Allergies Allergy/AdvReac Type Severity Reaction Status Date / Time cocaine [Cocaine] Allergy Severe SEIZURE TO Verified 04/28/20 12:19 LIQUID COCAINE codeine [CODEINE] Allergy Severe SEIZURE Verified 04/28/20 12:19 ibuprofen [IBUPROFEN] Allergy Severe SEIZURE Verified 05/25/20 12:50 metronidazole [Flagyl] Allergy Severe Seizure Verified 05/25/20 12:50 paclitaxel [From TAXOL] Allergy Severe HEART Verified 04/28/20 12:19 STOPPED diphenhydramine Allergy Intermediate PALPITATION Verified 05/25/20 12:50 [From BENADRYL] S lactose Allergy Intermediate Constipatio Verified 05/25/20 12:50 n latex [LATEX] Allergy Intermediate RASH Verified 05/25/20 12:50 CHOCOLATE Allergy Intermediate PASSOUT Uncoded 05/25/20 12:50 <HARITHA Valdez Last Filed: 06/09/20 17:45> Review of Systems Review of Systems: Constitutional: + Weight loss, No Fever, No Chills ENT/Mouth: No Hearing loss, No Ear Pain, No Nasal Congestion, No Sinus Pain Cardiovascular: No Chest Pain, No SOB, No Palpitations Respiratory: No Cough, No Dyspnea Gastrointestinal: + Nausea, + Vomiting, No Diarrhea, No Constipation, No Abdominal pain Musculoskeletal: +L knee joint pain, +Left rib pain Skin: No Skin Lesions, No rash Neuro: No Weakness, No Numbness, No Paresthesias, No Loss of Consciousness, + D izziness, No Headache <HARITHA Valdez Last Filed: 06/09/20 17:45> Yes all other systems are reviewed and are negative <HARITHA Valdez Last Filed: 06/09/20 17:45> Neurologic: Denies Sensory deficit (Neuro) <HARITHA Valdez - Last Filed: 06/09/20 17:45> [facility] Past Medical History Attestation statement: The following information was validated with the patient. <HARITHA Valdez - Last Filed: 06/09/20 17:45> Medical History: Medical History Anxiety disorder Ascites Bulimia Chronic constipation Endometrial carcinoma Epilepsy Hx of bulimia nervosa Hypertension Ovarian ca Post hysterectomy menopause Recurrent UTI Urinary retention Uterine cancer <HARITHA Valdez - Last Filed: 06/09/20 17:45> Surgical History: Surgical History H/O: hysterectomy (~2011) History of esophagogastroduodenoscopy (EGD) Hx of colonoscopy Hx of tonsillectomy <HARITHA Valdez - Last Filed: 06/09/20 17:45> Family History Family History: Family History Father Stroke Mother Hypertension Heart disease <HARITHA Valdez - Last Filed: 06/09/20 17:45> Social History Social History: Social History (Updated 06/02/20 @ 13:47 by Karin Benites MA) Alcohol intake: never Smoking Status: Never smoker Advance Directives: Yes Advance Directives on File: Yes Advance Directives Date on File: 03/29/20 service: No <HARITHA Valdez - Last Filed: 06/09/20 17:45> Physical Exam Vital Signs: Vital Signs: Last Vital Signs Temp 97.5 F 06/09/20 15:20 Pulse 141 H 06/09/20 15:31 Resp 18 06/09/20 15:20 BP 107/74 06/09/20 15:31 Pulse Ox 100 06/09/20 15:20 Body Mass Index 8.4 <HARITHA Valdez - Last Filed: 06/09/20 17:45> Vital Signs: Last Vital Signs Temp 97.5 F 06/09/20 15:20 Pulse 141 H 06/09/20 15:31 Resp 18 06/09/20 15:20 BP 107/74 06/09/20 15:31 Pulse Ox 100 06/09/20 15:20 Body Mass Index 8.4 <Adarsh Jiménez MD - Last Filed: 06/21/20 13:57> Const: General: cooperative <Jackie Soto PA - Last Filed: 06/09/20 17:45> Nutritional Appearance: cachectic <Jackie Soto PA - Last Filed: 06/09/20 17:45> Orientation/consciousness: patient oriented x3 <Jackie Soto PA - Last Filed: 06/09/20 17:45> Limitations: no limitations <Jackie Soto PA - Last Filed: 06/09/20 17:45> HENMT: Head: Yes normal to inspection <Jackie Soto PA - Last Filed: 06/09/20 17:45> Ears: hearing grossly normal bilaterally <Jackie Soto PA - Last Filed: 06/09/20 17:45> General nose exam: Normal external nose present <Jackie Soto PA - Last Filed: 06/09/20 17:45> Face and sinus: Yes normal facial exam <Jackie Soto PA - Last Filed: 06/09/20 17:45> Mouth: Normal oral and palatal mucosa present <Jackie Soto PA - Last Filed: 06/09/20 17:45> Throat: Yes posterior oropharynx normal <Jackie Soto PA - Last Filed: 06/09/20 17:45> Eyes: Other: Rightward nystagmus noted <Jackie Soto PA - Last Filed: 06/09/20 17:45> General: appearance normal, both eyes and all related structures <Jackie Soto PA - Last Filed: 06/09/20 17:45> Pupils: Equal, round and reactive pupils present <Jackie Soto PA - Last Filed: 06/09/20 17:45> EOM: EOMs intact bilaterally <Jackie Soto PA - Last Filed: 06/09/20 17:45> Neck: Other: No midline cervical spinous tenderness <Jackie Soto PA - Last Filed: 06/09/20 17:45> Neck: Yes normal visual inspection and Yes no meningeal signs <Jackie Soto PA - Last Filed: 06/09/20 17:45> Chest: Chest palpation & inspection: no crepitus and tenderness rib left anterior-axillary line <Jackie [facility], PA - Last Filed: 06/09/20 17:45> Resp: Effort & Inspection: normal respiratory effort <Jackie Brittany, PA - Last Filed: 06/09/20 17:45> Auscultation: clear to auscultation bilaterally, no rales, no rhonchi and no wheezes <Jackie [facility], PA - Last Filed: 06/09/20 17:45> Cardio: Rate: regular rate <Jackie [facility], PA - Last Filed: 06/09/20 17:45> Heart sounds: S1 normal heart sound present and S2 normal heart sound present <Jackie [facility], PA - Last Filed: 06/09/20 17:45> GI: Inspection: Yes normal to inspection and No distended <Jackie [facility], PA - Last Filed: 06/09/20 17:45> Palpation (GI): Soft to palpation, nontender, no guarding and not rigid <Jackie [facility], PA - Last Filed: 06/09/20 17:45> Back/Spine/Pelvis: Other: No midline thoracic/lumbar spinous tenderness <Jackie [facility], PA - Last Filed: 06/09/20 17:45> Skin: Rashes: no rashes <Jackie [facility], PA - Last Filed: 06/09/20 17:45> Wounds: no wounds <Jackie Brittany, PA - Last Filed: 06/09/20 17:45> Neuro: General: patient oriented x3, tone normal, moves all extremities, no meningeal signs, no focal motor deficits and CN's II-XI intact bilaterally <Jackie Brittany, PA - Last Filed: 06/09/20 17:45> Cranial nerves: Yes Equal, round and reactive pupils present <Jackie [facility], PA - Last Filed: 06/09/20 17:45> Cognition (Neuro): normal cognition <Jackie Brittany, PA - Last Filed: 06/09/20 17:45> Gait exam (Neuro): Normal gait present <Jackie [facility], PA - Last Filed: 06/09/20 17:45> Motor exam (neuro): 5/5 motor strength present throughout <Jackie Brittany, PA - Last Filed: 06/09/20 17:45> Sensory Exam: No Sensory deficit (Neuro) <HARITHA Valdez Last Filed: 06/09/20 17:45> Coordination: [id number]-[id number] test normal and Romberg test negative <HARITHA Valdez - Last Filed: 06/09/20 17:45> Extrem: Other: Left knee with superficial abrasion & mild TTP. FROM/NV intact <HARITHA Valdez - Last Filed: 06/09/20 17:45> General: Yes normal to inspection <HARITHA Valdez - Last Filed: 06/09/20 17:45> Course Course Course Narrative: * Labs from oncology office this morning at patient's baseline * X-ray without evidence of acute pulmonary process. No displaced rib fractures * Orthostatic vital signs negative * 1741--on re-evaluation patient reports symptomatic improvement after Meclizine, denies dizziness at present. Was able to tolerate p.o. in the ED without nausea or vomiting. Reports she would like to go home. Is unable to supply us with urine in the ED. Feels safe for discharge. Worrisome signs and symptoms and strict return precautions discussed. <HARITHA Valdez Last Filed: 06/09/20 17:45> I have reviewed the chart <Adarsh Jiménez MD - Last Filed: 06/21/20 13:57> MDM - Nausea/Vomiting/Diarrhea MDM Narrative Medical decision making narrative: 54-year-old female with a past medical history of anxiety, chronic constipation, endometrial carcinoma, hypertension, urinary retention, uterine cancer, ovarian cancer currently on chemotherapy, ascites with monthly paracentesis presenting to ED complaining of nausea, vomiting/dry heaving, and dizziness x couple days with fall at home last night. On exam VSS, NAD, cachectic, no midline spinous tenderness throughout, no focal neuro deficits. Left-sided rib tenderness noted, abdomen soft/nontender. Concern for dehydration vs metabolic abnormalities vs UTI vs BPPV. Low concern for other infectious etiology or ICH Patient already had lab work performed this morning in oncology office. Labs reviewed, and at patient's baseline Plan: IVF, UA, rib x-ray, Sx tx, Orthostatics, Reassess <HARITHA Valdez Last Filed: 06/09/20 17:45> Discharge Plan Discharge Clinical Impression: Benign paroxysmal positional vertigo, Anorexia <HARITHA Valdez Last Filed: 06/09/20 17:45> Patient Disposition: Home, Self-Care <HARITHA Valdez Last Filed: 06/09/20 17:45> Instructions: Vertigo (ED) <HARITHA Valdez Last Filed: 06/09/20 17:45> Additional Instructions: Your blood work was reassuring today in the ED Your x-ray did not show any acute findings or fractures IT IS CRUCIAL THAT YOU ARE EATING AND DRINKING AT HOME YOU SHOULD PROVIDE YOUR PRIMARY CARE DOCTOR WITH URINE SAMPLE TO MAKE SURE IT IS NOT INFECTED THIS WEEK CALL YOUR ONCOLOGIST FOR CLOSE FOLLOW-UP MECLIZINE IT IS FOR DIZZINESS/NAUSEA, TAKE NEEDED IF HER SYMPTOMS PERSIST OR WORSEN, YOUR UNABLE TO EAT OR DRINK, DEVELOPED CHEST PAIN/SHORTNESS OF BREATH, PERSISTENT NAUSEA/VOMITING OR ABDOMINAL PAIN RETURN TO THE ED <HARITHA Valdez Last Filed: 06/09/20 17:45> Prescriptions: New meclizine 25 mg tablet 25 mg PO TID PRN (Reason: dizziness) Qty: 14 RF: 0 No Action sennosides-docusate sodium [Senna-S] 8.6-50 mg Tablet 1 tab-cap PO BEDTIME Qty: 60 RF: 3 potassium chloride 10 mEq Capsule, Extended Release 20 meq PO DAILY Qty: 30 RF: 3 oxycodone 5 mg Capsule 5 mg PO Q4H PRN (Reason: Breakthrough Pain, Severe) Qty: 30 RF: 0 omeprazole 20 mg capsule,delayed release(DR/EC) 20 mg PO BID RF: 0 bisacodyl [Dulcolax (bisacodyl)] 5 mg tablet,delayed release (DR/EC) 5 mg PO BEDTIME PRN (Reason: constipation) 30 Days Qty: 30 RF: 0 dicyclomine 10 mg Capsule 10 mg PO TID Qty: 90 RF: 3 ondansetron 8 mg tablet,disintegrating 8 mg PO Q8H PRN (Reason: Nausea And Vomiting) RF: 0 olanzapine 5 mg tablet 5 mg PO BEDTIME RF: 0 Lynparza 150 mg tablet 150 mg PO BID RF: 0 omeprazole 40 mg capsule,delayed release(DR/EC) 40 mg PO BID 30 Days Qty: 60 RF: 3 <HARITHA Valdez - Last Filed: 06/09/20 17:45> Referrals: Tom Washburn MD [Physician] - 2 days <HARITHA Valdez - Last Filed: 06/09/20 17:45> Interventions: ED Discharge Assessment Last Done: 06/09/20 18:55 <HARITHA Valdez - Last Filed: 06/09/20 17:45> Discharge Date/Time: 06/09/20 18:30 <HARITHA Valdez - Last Filed: 06/09/20 17:45>
[2020-06-09] MEDS: Meclizine HCl 25 MG TABLET PO (14:32)
[2020-06-09] MEDS: 0.9 % Sodium Chloride 1,000 ML 999 ML IVCONT (14:32)
[2020-06-09 14:33] VITALS: BP 115/77; PULSE 107; RESP 16; O2SAT 100
[2020-06-09] MEDS: Omeprazole 20 MG CAPSULE.DR PO (15:06)
[2020-06-09 15:20] VITALS: BP 121/80; PULSE 115; RESP 18; TEMP 36.4; O2SAT 100
[2020-06-09 15:29] VITALS: BP 130/88; PULSE 125
[2020-06-09 15:31] VITALS: BP 107/74; PULSE 141
== END 2020-06-09 18:30 | disposition home or self-care (01) ==
PROVIDERS: Emergency Provider Emergency Medicine; PCP Internal Medicine
DX: H81.13 Benign paroxysmal vertigo, bilateral (principal); R07.81 Pleurodynia; R63.0 Anorexia; R11.2 Nausea with vomiting, unspecified; Z79.899 Other long term (current) drug therapy
CPT/HCPCS: 71101; 96360; 99284

== ENCOUNTER 2020-06-12 09:00 | Outpatient (RCR) | payer OTHER, SELFPAY ==
[2020-04-10 10:18] VITALS: BP 129/66; PULSE 96; RESP 16; TEMP 36.2; O2SAT 98
[2020-04-10 10:20] VITALS: BMI 20.3
--- NOTE | 2020-04-10 10:54 | PM.HEMONCPN ---
Medical Summary - Medical Summary Chief complaint: F/U for: Recurrent ovarian carcinoma. Medical Summary: DIAGNOSIS: RECURRENT OVARIAN CARCINOMA. History of stage I endometrial carcinoma and peritoneal serous carcinoma, initially diagnosed back in 2011. She underwent debulking surgery by Dr. Perez, at [facility]. Subsequently had adjuvant chemotherapy with cisplatin and docetaxel. (developed a reaction to Taxol.) February 2015 she developed recurrent peritoneal carcinomatosis and was treated with carbo Taxotere x6. November 2015 she had partial small-bowel obstruction treated conservatively. January 2016 she was treated with carbo Gemzar for 12 cycles up until 2016. She was then on maintenance Niraparib for couple of years when she was noted to be BRCA 1 mutation positive. December 2018 she again developed peritoneal recurrence. Treated with carbo Gemzar x7 between February 19 through July 30 2019. She now has increasing CA 125. Today was 85. CT scan from August 12 reveals disease progression with new rounded loculated component, cystic mets in the pelvis. CURRENT THERAPY: On DOXIL: Started September 02. Cycle 2 on September 30. Cycle 3 on October 28. Cycle 4 November 25. Cycle 5 December 23. Cycle 6, on January 20. Topotecan, Started February 23. 2nd cycle 03/16 - 03/20. Interval History Interval history: this is a pleasant 54-year-old lady, here for a follow-up visit. She had to be admitted after her last cycle of chemotherapy with Topotecan. She developed hypokalemia, thrombocytopenia and low protein levels. She pesented with complaints of abdominal pain. Her abdominal pain was generalized. She had associated nausea and vomiting. She denied associated fever, chills, diarrhea. She had shortness of breath but denied any associated cough. Last chemotherapy was just over 1 week ago. She had required paracentesis, approximately once a month for the past several months. She underwent a CAT scan of the abdomen which revealed large volume ascites. Her electrolytes were abnormal with a magnesium of 1.0 and a potassium 3.0. She was noted to be thrombocytopenic with a platelet count of 37. Her ascites worsened. It was drained. she had 5 L removed. She has felt nauseous. she tells me that the Zofran ODT works better and faster. her appetite is so-so. She has lost weight. She still feels rather weak. she feels happy will help her. She denies much abdominal distension. No vomiting. No heartburn Indigestion. Her bowels are working she goes few times a day. That is because she took a stool softener for constipation. She has lost weight. Denies any fever nor chills. No headache no dizziness. She has no chest pain but sometimes she gets short of breath on exertion. She is in good spirits. Rest of the review of systems is unremarkable. Review of Systems - Constitutional Reports fatigue, Reports lack of energy, Reports malaise, Denies excessive sweating - Eyes Denies blurry vision - ENT Reports system reviewed and no additional complaints, except as documented - Respiratory Denies chest congestion - Gastrointestinal Reports bloating, Reports feeling full early, Reports dyspepsia, Denies abdominal pain - Genitourinary Denies abnormal vaginal bleeding - Musculoskeletal Denies back pain - Integumentary/Breasts Skin/Breast: Denies bleeding lesions - Neurologic Reports system reviewed and no additional complaints, except as documented - Endocrine Denies cold intolerance, Denies increased hunger - Hematologic/Lymphatic Denies easy bleeding [facility] Medical History: Medical History (Last Reviewed 03/29/20 @ 18:36 by Keesha Xiong, RN) Anxiety disorder Ascites Bulimia Endometrial carcinoma Epilepsy Hypertension Ovarian ca Post hysterectomy menopause Uterine cancer Family History: Family History (Last Updated 03/29/20 @ 14:04 by HARITHA Neville) Father CVA (cerebral vascular accident) Mother Hypertension Heart disease Surgical History: Surgical History (Last Reviewed 03/29/20 @ 18:36 by Keesha Xiong RN) H/O: hysterectomy Hx of tonsillectomy Home Medications and Allergies Home Medications Medication Instructions Recorded Confirmed Type omeprazole 1 cap PO BID 03/30/20 04/10/20 History ondansetron 4 tab PO Q6-8H PRN 03/30/20 History Allergies Allergy/AdvReac Type Severity Reaction Status Date / Time cocaine [Cocaine] Allergy Severe SEIZURE TO Verified 03/29/20 11:34 LIQUID COCAINE codeine [CODEINE] Allergy Severe SEIZURE Verified 03/29/20 11:34 paclitaxel [From TAXOL] Allergy Severe HEART Verified 03/29/20 11:34 STOPPED diphenhydramine Allergy Unknown PALPITATION Verified 03/29/20 11:34 [From BENADRYL] S ibuprofen [IBUPROFEN] Allergy Unknown SEIZURE Verified 03/29/20 11:34 latex [LATEX] Allergy Unknown RASH Verified 03/29/20 11:34 metronidazole [Flagyl] Allergy Unknown Seizure Verified 03/29/20 11:34 lactose Allergy Constipatio Verified 03/29/20 11:34 n From FLAGYL Allergy Severe SEIZURE-PASSED Uncoded 03/12/20 16:23 OUT CHOCOLATE Allergy Mild PASSOUT Uncoded 03/12/20 16:23 BENADRYL Allergy Unknown Hives Uncoded 03/29/20 11:34 Benadryl Allergy Unknown Hives Uncoded 03/29/20 11:34 CODEINE Allergy Unknown Unresponsiv Uncoded 03/29/20 11:34 e Codeine Allergy Unknown Unresponsiv Uncoded 03/29/20 11:34 e FLAGYL Allergy Unknown Seizure Uncoded 03/29/20 11:34 Taxol AdvReac Unknown cardiac Uncoded 02/17/20 00:00 arrect Exam Vital signs: Vital Signs Temp 97.1 F 04/10/20 10:18 Pulse 96 04/10/20 10:18 Resp 16 04/10/20 10:18 BP 129/66 04/10/20 10:18 Pulse Ox 98 04/10/20 10:18 Intake & Output 04/09/20 04/10/20 04/10/20 18:59 06:59 18:59 Other: Weight 52.1 kg Weight 52.1 kg Body Mass Index 20.3 - Constitutional Present: no acute distress - Routine HEENT Exam Head: Present: normal inspection Eye: Present: normal appearance ENT: Present: mucous membranes moist - Routine Neck Exam Present: full ROM - Routine Respiratory Exam Present: CTAB - Routine Cardiovascular Exam Cardiovascular: Present: RRR, S1, S2 - Routine Abdominal Exam Present: distended, normal bowel sounds, nontender - Routine Rectal Exam Patient deferred: digital exam - Routine Extremities Exam Present: normal inspection, nontender - Routine Skin Exam Present: intact - Routine Neurological Exam Present: alert, oriented X3 - Detailed Neurological Exam: Coma Scale Eye Opening: Spontaneous (4) - Routine Psychiatric Exam Present: normal affect Data - Labs CBC & Chem 7: 04/10/20 11:15 04/10/20 11:15 Progress Note: A/P (1) Ovarian cancer Status: Acute Assessment and plan: This is a pleasant 54 year-old lady with recurrent Ovarian Cancer. She was started on chemotherapy with Doxil on 09/03/2019. She has been tolerating it well. Her tumor marker appears to be declining. She mentions distension of the abdomen. She is concerned about ascites reaccumulating, however there is no fluid thrill nor shifting dullness. Belly feels more fatty. She was reassured. She received cycle 3 of the Doxil, on October 28. She had her 4th cycle of Doxil, November 25. She had the CT scan for restaging. It revealed stable cystic disease in the abdomen, but increased fluid collection and ascites. She had paracentesis under ultrasound guidance, on December 09 with removal of 4.7 L of dark serosanguineous/slightly bloody fluid. She had paracentesis on January 09. She had most recent CT scan of the abdomen from February 05 which revealed: Diffuse large ascites compressing the solid organs such as kidneys, adrenal gland and the pancreas to is a posterior abdomen. There is mass effect in the antrum of the liver as well. There is mild thickening of the peritoneal lining in the lower abdomen secondary to seeding. Her tumor marker increased to 550 today from 09/08December 16. She underwen a paracentesis with removal of 4.4 L of fluid on February 09. I had referred her to [facility], for nutrition counseling. She was switched to Topotecan. She had 1 cycle between 02/23 through 02/27. She did tolerate it however she developed significant pancytopenia. She was given a unit of platelets but no blood transfusion. She had a hard time tolerating the 2nd cycle as well. She had to be admitted to the hospital for management of the side effects. I feel like she has been so heavily pretreated that she has limited bone marrow reserve. I discussed the option of going to oral targeted agent the olaparib. We did get the prior Auth an she has received the medication from the specialty pharmacy. PLAN: She will get started however will start with 150 mg b.i.d. for a week or 2 just to see how she tolerates it. Then go up on the dose to 300 mg b.i.d. She was given a prescription for Zofran ODT for nausea. She was also given a prescription for Magic mouthwash just in case she gets sores. She will return for labs weekly. I will set up physical therapy to help with deconditioning. she will call in case she gets further distension to arrange for paracentesis. She will call if she has any questions or concerns. Thank you, CC: Dr. Milligan. Rafaela Gama. SLEEP TECHNICIAN. [facility] Baker. Code Status FULL CODE - Time Spent With Patient Total time spent is greater than 50% in coordination of care (as documented) at patient's floor/unit and/or counseling patient: 25 - 35 minutes
[2020-04-10 11:31] LABS: MANUAL DIFF FLAG NO
[2020-04-10 11:40] LABS: Basophils Absolute Auto 0.2 X10*3/uL (0.0-0.2); Basophils Percent Auto 1.1 % (0-2); Eosinophils Percent Auto 0.3 % (0-4); Hematocrit 35.5 % (37-47); Hemoglobin 11.6 g/dl (12.0-16.0); Imm Gran Abs Auto 0.69 X10*3/uL (0.00-0.03); Imm Gran Pct Auto 4.9 % (0.0-0.4); Lymphocytes Absolute Auto 3.8 X10*3/uL (1.2-4.9); Lymphocytes Percent Auto 27.3 % (20-40); Mean Corpuscular HGB Conc 32.7 g/dl (31.0-35.0); Mean Corpuscular Hemoglobin 32.6 pg (27.0-33.0); Mean Corpuscular Volume 99.7 fL (80-98); Mean Platelet Volume 9.5 fL (9.4-12.3); Monocytes Absolute Auto 1.4 X10*3/uL (0.1-1.2); Monocytes Percent Auto 10.2 % (2-11); Neutrophils Absolute Auto 7.8 X10*3/uL (2.0-8.3); Neutrophils Percent Auto 56.2 % (45-73); Platelet Count 670 X10*3/uL (160-400); Red Blood Count 3.56 X10*6/uL (4.20-5.50); White Blood Count 13.9 X10*3/uL (4.8-10.8)
--- NOTE | 2020-04-10 11:41 | MHC.HEMONC ---
Patient present for exam, Patient states received olaparib chemo pill. Chemo teaching completed today and consent signed. Patient to start on Olaparib 150 mg by mouth twice daily for a few weeks prior to increasing to total dose of 300mg po bid. Patient will return for weekly labs and F/u in [address] Washburn. Patient booked for PT on 04/15/20 at 8am for deconditioning. Refill given on zofran and magic mouthwash script (BENADRYL OMITTED *Allergy*) faxed to patients pharmacy
[2020-04-10 12:03] LABS: Alanine Aminotransferase 13 U/L (0-31); Albumin Level 3.2 g/dL (3.5-5.0); Alkaline Phosphatase 133 U/L (39-117); Anion Gap 11 (12-20); Aspartate Amino Transferase 22 U/L (5-31); Bilirubin Total 0.7 mg/dL (0.0-1.0); Blood Urea Nitrogen 10 mg/dL (9-16); Calcium 8.4 mg/dL (8.4-10.2); Carbon Dioxide 29 mmol/L (22-29); Chloride 104 mmol/L (96-108); Creatinine Clr Calc Pharmacy 71.7; Estimated Glomerular Filt Rate > 60; Glucose Random 105 mg/dL (60-115); Potassium 4.3 mmol/l (3.3-5.1); Sodium 140 mmol/L (135-145); Total Protein 5.2 g/dL (6.5-8.0)
[2020-04-14 19:07] LABS: CA-125 291 U/mL (<35)
[2020-04-17 08:40] VITALS: BP 116/73; PULSE 115; O2SAT 98
[2020-04-17] MEDS: 0.9 % Sodium Chloride 1,000 ML 500 ML IVCONT (08:45)
--- NOTE | 2020-04-17 08:50 | PM.HEMONCPN ---
Medical Summary - Medical Summary Chief complaint: follow-up for: Recurrent ovarian cancer. Medical Summary: DIAGNOSIS: RECURRENT OVARIAN CARCINOMA. History of stage I endometrial carcinoma and peritoneal serous carcinoma, initially diagnosed back in 2011. She underwent debulking surgery by Dr. Perez, at [facility]. Subsequently had adjuvant chemotherapy with cisplatin and docetaxel. (developed a reaction to Taxol.) February 2015 she developed recurrent peritoneal carcinomatosis and was treated with carbo Taxotere x6. November 2015 she had partial small-bowel obstruction treated conservatively. January 2016 she was treated with carbo Gemzar for 12 cycles up until 2016. She was then on maintenance Niraparib for couple of years when she was noted to be BRCA 1 mutation positive. December 2018 she again developed peritoneal recurrence. Treated with carbo Gemzar x7 between February 19 through July 30 2019. She now has increasing CA 125. Today was 85. CT scan from August 12 reveals disease progression with new rounded loculated component, cystic mets in the pelvis. CURRENT THERAPY: On DOXIL: Started September 02. Cycle 2 on September 30. Cycle 3 on October 28. Cycle 4 November 25. Cycle 5 December 23. Cycle 6, on January 20. Topotecan, Started February 23. 2nd cycle 03/16 - 03/20. Interval History Interval history: This is a pleasant 54-year-old lady, here for a follow-up visit. She does not feel well at all. in the waiting room she mentioned that she was feeling dizzy. then she could not see anything. she was brought in to lay on a bed. during that process she vomited. she was unresponsive for a few seconds but then she came to quickly. She looked rather pale however, she was talking, being apologetic. Rapid Response team was called however her blood pressure was 116/68, pulse was 100 and O2 sat was 99%. Her port was accessed and labs, including a type and screen, were drawn. IV fluids was started. She has felt nauseous. she tells me that the Zofran ODT works better and faster. her appetite is so-so. She has lost weight. She still feels rather weak. she feels happy will help her. She denies much abdominal distension. No vomiting. No heartburn Indigestion. Her bowels are working she goes few times a day. That is because she took a stool softener for constipation. She has lost weight. Denies any fever nor chills. No headache no dizziness. She has no chest pain but sometimes she gets short of breath on exertion. She is in good spirits. Rest of the review of systems is unremarkable. She had to be admitted after her last cycle of chemotherapy with Topotecan. She developed hypokalemia, thrombocytopenia and low protein levels. She pesented with complaints of abdominal pain. Her abdominal pain was generalized. She had associated nausea and vomiting. She denied associated fever, chills, diarrhea. She had shortness of breath but denied any associated cough. She had required paracentesis, approximately once a month for the past several months. She underwent a CAT scan of the abdomen which revealed large volume ascites. Her electrolytes were abnormal with a magnesium of 1.0 and a potassium 3.0. She was noted to be thrombocytopenic with a platelet count of 37. Her ascites worsened. It was drained. she had 5 L removed. Review of Systems - Constitutional Reports anorexia, Reports excessive sweating, Reports fatigue, Reports lack of energy, Reports malaise, Reports poor appetite, Reports weight loss - Eyes Reports system reviewed and no additional complaints, except as documented, Reports blurry vision - ENT Reports system reviewed and no additional complaints, except as documented - Cardiovascular Reports system reviewed and no additional complaints, except as documented, Reports shortness of breath - Gastrointestinal Reports system reviewed and no additional complaints, except as documented, Reports abdominal pain, Reports belching, Reports nausea, Reports vomiting, Denies vomiting blood - Genitourinary Reports no additional female genitourinary complaints - Musculoskeletal Reports system reviewed and no additional complaints, except as documented, Reports joint pain - Neurologic Reports system reviewed and no additional complaints, except as documented, Reports hearing normal, Reports vertigo, Reports dizziness, Reports weakness - Psychiatric Reports system reviewed and no additional complaints, except as documented, Reports depression - Endocrine Reports no additional endocrine complaints - Hematologic/Lymphatic Reports system reviewed and no additional complaints, except as documented - Allergic/Immunologic Reports system reviewed and no additional complaints, except as documented PMFSH Medical History: Medical History (Last Reviewed 03/29/20 @ 18:36 by Keesha Xiong RN) Anxiety disorder Ascites Bulimia Endometrial carcinoma Epilepsy Hypertension Ovarian ca Post hysterectomy menopause Uterine cancer Family History: Family History (Last Updated 03/29/20 @ 14:04 by HARITHA Neville) Father CVA (cerebral vascular accident) Mother Hypertension Heart disease Surgical History: Surgical History (Last Reviewed 03/29/20 @ 18:36 by Keesha Xiong RN) H/O: hysterectomy Hx of tonsillectomy Home Medications and Allergies Home Medications Medication Instructions Recorded Confirmed Type omeprazole 1 cap PO BID 03/30/20 04/10/20 History ondansetron 4 tab PO Q6-8H PRN 03/30/20 History Allergies Allergy/AdvReac Type Severity Reaction Status Date / Time cocaine [Cocaine] Allergy Severe SEIZURE TO Verified 03/29/20 11:34 LIQUID COCAINE codeine [CODEINE] Allergy Severe SEIZURE Verified 03/29/20 11:34 paclitaxel [From TAXOL] Allergy Severe HEART Verified 03/29/20 11:34 STOPPED diphenhydramine Allergy Unknown PALPITATION Verified 03/29/20 11:34 [From BENADRYL] S ibuprofen [IBUPROFEN] Allergy Unknown SEIZURE Verified 03/29/20 11:34 latex [LATEX] Allergy Unknown RASH Verified 03/29/20 11:34 metronidazole [Flagyl] Allergy Unknown Seizure Verified 03/29/20 11:34 lactose Allergy Constipatio Verified 03/29/20 11:34 n From FLAGYL Allergy Severe SEIZURE-PASSED Uncoded 03/12/20 16:23 OUT CHOCOLATE Allergy Mild PASSOUT Uncoded 03/12/20 16:23 BENADRYL Allergy Unknown Hives Uncoded 03/29/20 11:34 Benadryl Allergy Unknown Hives Uncoded 03/29/20 11:34 CODEINE Allergy Unknown Unresponsiv Uncoded 03/29/20 11:34 e Codeine Allergy Unknown Unresponsiv Uncoded 03/29/20 11:34 e FLAGYL Allergy Unknown Seizure Uncoded 03/29/20 11:34 Taxol AdvReac Unknown cardiac Uncoded 02/17/20 00:00 arrect Exam Vital signs: Vital Signs Temp 97.1 F 04/10/20 10:18 Pulse 96 04/10/20 10:18 Resp 16 04/10/20 10:18 BP 129/66 04/10/20 10:18 Pulse Ox 98 04/10/20 10:18 Weight 52.1 kg Body Mass Index 20.3 - Constitutional Present: moderate distress, thin, cachectic, chronically ill appearing, diaphoretic, cooperative - Routine HEENT Exam Head: Present: normal inspection, normocephalic ENT: Present: mucous membranes moist - Routine Neck Exam Present: full ROM - Routine Respiratory Exam Present: CTAB - Routine Cardiovascular Exam Cardiovascular: Present: RRR, S1, S2 - Routine Rectal Exam Patient deferred: digital exam - Routine Extremities Exam Present: nontender. Absent: pedal edema - Routine Skin Exam Present: intact - Routine Neurological Exam Present: alert, oriented X3 - Detailed Neurological Exam: Coma Scale Eye Opening: Spontaneous (4) Verbal Response: Oriented (5) Motor Response: Obeys commands (6) Glascow Coma Scale Total: 15 Data - Labs CBC & Chem 7: 04/17/20 08:45 04/17/20 08:45 Progress Note: A/P (1) Ovarian cancer Status: Acute (2) Recurrent malignant neoplasm of ovary Status: Acute Assessment and plan: This is a pleasant 54 year-old lady with recurrent Ovarian Cancer. She was started on chemotherapy with Doxil on 09/03/2019. She has been tolerating it well. Her tumor marker appears to be declining. She mentions distension of the abdomen. She is concerned about ascites reaccumulating, however there is no fluid thrill nor shifting dullness. Belly feels more fatty. She was reassured. She received cycle 3 of the Doxil, on October 28. She had her 4th cycle of Doxil, November 25. She had the CT scan for restaging. It revealed stable cystic disease in the abdomen, but increased fluid collection and ascites. She had paracentesis under ultrasound guidance, on December 09 with removal of 4.7 L of dark serosanguineous/slightly bloody fluid. She had paracentesis on January 09. She had most recent CT scan of the abdomen from February 05 which revealed: Diffuse large ascites compressing the solid organs such as kidneys, adrenal gland and the pancreas to is a posterior abdomen. There is mass effect in the antrum of the liver as well. There is mild thickening of the peritoneal lining in the lower abdomen secondary to seeding. Her tumor marker increased to 550 today from 09/08December 16. She underwen a paracentesis with removal of 4.4 L of fluid on February 09. I had referred her to [facility] for nutrition counseling. She was switched to Topotecan. She had 1 cycle between 02/23 through 9/4. She did tolerated however she developed significant pancytopenia. She was given a unit of platelets but no blood transfusion. She was quite dizzy week today. Had nausea and vomiting and had a resulting vasovagal episode. She is pale appearing and feels short of breath. Hemoglobin is actually better at 9.8, today. PLAN: She was given a L of IV fluids. she felt much better. she will stay on the olaparib, has been started on the lower dose so far. she will return in a couple of weeks for a follow-up visit. She will call if she has any questions or concerns. Thank you, CC: Dr. Milligan. Rafaela Gama. HEALTHCARE MANAGEMENT. [facility] Baker. Code Status FULL CODE - Time Spent With Patient Total time spent is greater than 50% in coordination of care (as documented) at patient's floor/unit and/or counseling patient: 25 - 35 minutes
[2020-04-17 08:52] VITALS: BP 104/61; PULSE 87; O2SAT 100
[2020-04-17 09:10] VITALS: BP 110/62; PULSE 77; O2SAT 100
[2020-04-17 09:13] LABS: MANUAL DIFF FLAG NO
[2020-04-17 09:19] LABS: Basophils Absolute Auto 0.2 X10*3/uL (0.0-0.2); Eosinophils Percent Auto 0.2 % (0-4); Hematocrit 29.1 % (37-47); Hemoglobin 9.8 g/dl (12.0-16.0); Imm Gran Abs Auto 0.05 X10*3/uL (0.00-0.03); Imm Gran Pct Auto 0.5 % (0.0-0.4); Lymphocytes Absolute Auto 2.6 X10*3/uL (1.2-4.9); Lymphocytes Percent Auto 28.8 % (20-40); Mean Corpuscular HGB Conc 33.7 g/dl (31.0-35.0); Mean Corpuscular Hemoglobin 33.9 pg (27.0-33.0); Mean Corpuscular Volume 100.7 fL (80-98); Monocytes Absolute Auto 0.6 X10*3/uL (0.1-1.2); Monocytes Percent Auto 6.4 % (2-11); NRBC Pct Auto 0.2 /100WBC (0.0-0.2); Neutrophils Absolute Auto 5.7 X10*3/uL (2.0-8.3); Neutrophils Percent Auto 62.1 % (45-73); Platelet Count 327 X10*3/uL (160-400); Red Blood Count 2.89 X10*6/uL (4.20-5.50); Red Cell Distribution Width 19.9 % (11.0-16.0); White Blood Count 9.1 X10*3/uL (4.8-10.8)
[2020-04-17 09:41] LABS: Alanine Aminotransferase 11 U/L (0-31); Albumin Level 2.9 g/dL (3.5-5.0); Alkaline Phosphatase 122 U/L (39-117); Anion Gap 14 (12-20); Aspartate Amino Transferase 21 U/L (5-31); Blood Urea Nitrogen 10 mg/dL (9-16); Carbon Dioxide 24 mmol/L (22-29); Chloride 104 mmol/L (96-108); Creatinine Clr Calc Pharmacy 67.1; Estimated Glomerular Filt Rate > 60; Glucose Random 124 mg/dL (60-115); Potassium 3.5 mmol/l (3.3-5.1); Sodium 138 mmol/L (135-145); Total Protein 4.8 g/dL (6.5-8.0)
[2020-04-17 12:20] VITALS: BP 104/67; PULSE 81; TEMP 36.8; O2SAT 100
--- NOTE | 2020-04-17 16:03 | MHC.HEMONCSW ---
referral given both verbally and by fax to cristobal fernandez at [place] [facility]. patient had an episode of vomiting and dizziness today, declining in all areas. education, guidance and support provided to pt and her mother.
--- NOTE | 2020-04-17 17:14 | MHC.HEMONC ---
pt here this morning accompanied by her mother for labs. She was in Waiting Room and was found to be c/o dizzy and unable to see She was about to gag and vomit. She began to lose consciousness and Tina LOCKE called for nursing help. Pt wheeled and put onto stretcher. Lost consciousness and was pale and vomited clear emesis. She was on her side and regained consciousness. VSS Tachy. Refused O2 but sat was 100%. Port accessed and labs drawn. She remembered the events. Dr Washburn was present for all of this. Pt given hydration over two hours and slept. VSS throughout morning. Labs were WNL. She was discharged after noon, she sipped on liquids and was able to stand and ambulate without any new sx. She will call MD quality control specialist if needed or 911 for emergencies at home.She will continue on oral chemo pill per Dr Washburn.
[2020-04-20 18:52] LABS: CA-125 309 U/mL (<35)
--- NOTE | 2020-04-24 10:08 | MHC.HEMONC ---
Pt scheduled for labs today, but was unable to come in for appointment. Called her at home, and she states she could not come in due to weather and she has been vomiting. Appointment cancelled, will call if not feeling well, otherwise will return in one week for labs.
--- NOTE | 2020-05-01 08:48 | P.PNHO_ITS ---
Medical Summary - Medical Summary Chief complaint: F/U for Ovarian Cancer. Medical Summary: DIAGNOSIS: RECURRENT OVARIAN CARCINOMA. History of stage I endometrial carcinoma and peritoneal serous carcinoma, initially diagnosed back in 2011. She underwent debulking surgery by Dr. Perez, at [facility]. Subsequently had adjuvant chemotherapy with cisplatin and docetaxel. (developed a reaction to Taxol.) February 2015 she developed recurrent peritoneal carcinomatosis and was treated with carbo Taxotere x6. November 2015 she had partial small-bowel obstruction treated conservatively. January 2016 she was treated with carbo Gemzar for 12 cycles up until 2016. She was then on maintenance Niraparib for couple of years when she was noted to be BRCA 1 mutation positive. December 2018 she again developed peritoneal recurrence. Treated with carbo Gemzar x7 between February 19 through July 30 2019. She now has increasing CA 125. Today was 85. CT scan from August 12 reveals disease progression with new rounded loculated component, cystic mets in the pelvis. CURRENT THERAPY: On DOXIL: Started September 02. Cycle 2 on September 30. Cycle 3 on October 28. Cycle 4 November 25. Cycle 5 December 23. Cycle 6, on January 20. Topotecan, Started February 23. 2nd cycle 03/16 - 03/20. Currently on Olaparib. Interval History Interval history: This is a pleasant 54-year-old lady, here for a follow-up visit. She was seen in ER on 04/28 for urinary retention and possible UTI. she had a straight cath done there was no urine in the bladder. She had a urine culture sent and was started on Keflex. She did not have a paracentesis done. she tells me shins he started the Keflex she has had some nausea and vomiting. She does not feel well at all. She mentions she feels dizzy. She has felt nauseous. she tells me that the Zofran ODT works better and faster. her appetite is so-so. She has lost weight. She still feels rather weak. she feels happy will help her. She denies much abdominal distension. No vomiting. No heartburn Indigestion. Her bowels are working she goes few times a day. That is because she took a stool softener for constipation. She has lost weight. Denies any fever nor chills. No headache no dizziness. She has no chest pain but sometimes she gets short of breath on exertion. She is in good spirits. Rest of the review of systems is unremarkable. Recent history: At her last visit she was in the waiting room and felt dizzy. she then said she could not see anything. She was brought to the bed to lay her down. During that process she vomited. She was unresponsive for a few seconds but then she came to quickly. She looked rather pale however, she was talking, being apologetic. Rapid Response team was called however her blood pressure was 116/68, pulse was 100 and O2 sat was 99%. Her port was accessed and labs, including a type and screen, were drawn. IV fluids was started. She had to be admitted after her last cycle of chemotherapy with Topotecan. She developed hypokalemia, thrombocytopenia and low protein levels. She pesented with complaints of abdominal pain. Her abdominal pain was generalized. She had associated nausea and vomiting. She denied associated fever, chills, diarrhea. She had shortness of breath but denied any associated cough. She had required paracentesis, approximately once a month for the past several months. She underwent a CAT scan of the abdomen which revealed large volume ascites. Her electrolytes were abnormal with a magnesium of 1.0 and a potassium 3.0. She was noted to be thrombocytopenic with a platelet count of 37. Her ascites worsened. It was drained. she had 5 L removed. Review of Systems - Constitutional Reports fatigue, Reports lack of energy, Reports malaise, Reports weight loss, Denies fever(s) - Eyes Denies blurry vision - Cardiovascular Denies chest pain at rest - Respiratory Denies chest congestion - Gastrointestinal Reports abdominal pain, Reports nausea, Denies diarrhea - Musculoskeletal Reports body aches, Reports decreased muscle mass - Neurologic Reports system reviewed and no additional complaints, except as documented, Reports hearing normal, Reports vertigo, Reports dizziness, Reports weakness - Psychiatric Reports anxiety - Endocrine Denies excessive sweating - Hematologic/Lymphatic Denies easy bruising - Allergic/Immunologic Denies urticaria PMFSH Medical History: Medical History (Last Reviewed 04/28/20 @ 13:47 by Josie Leonard) Anxiety disorder Ascites Bulimia Chronic constipation Endometrial carcinoma Epilepsy Hx of bulimia nervosa Hypertension Ovarian ca Post hysterectomy menopause Recurrent UTI Urinary retention Uterine cancer Family History: Family History (Last Reviewed 04/28/20 @ 12:19 by Armando Lee [facility]) Father Stroke Mother Hypertension Heart disease Surgical History: Surgical History (Last Reviewed 04/28/20 @ 13:47 by Josie Leonard) H/O: hysterectomy Onset Date: ~2011 History of esophagogastroduodenoscopy (EGD) Hx of colonoscopy Hx of tonsillectomy Home Medications and Allergies Home Medications Medication Instructions Recorded Confirmed Type omeprazole 1 cap PO BID 03/30/20 04/23/20 History olaparib 150 mg tablet 150 mg PO BID 04/23/20 05/01/20 History olanzapine 5 mg tablet 5 mg PO BEDTIME 04/28/20 History ondansetron 8 mg disintegrating 8 mg PO Q8H PRN 04/28/20 05/01/20 History tablet Allergies Allergy/AdvReac Type Severity Reaction Status Date / Time cocaine [Cocaine] Allergy Severe SEIZURE TO Verified 04/28/20 12:19 LIQUID COCAINE codeine [CODEINE] Allergy Severe SEIZURE Verified 04/28/20 12:19 paclitaxel [From TAXOL] Allergy Severe HEART Verified 04/28/20 12:19 STOPPED diphenhydramine Allergy Unknown PALPITATION Verified 04/28/20 12:19 [From BENADRYL] S ibuprofen [IBUPROFEN] Allergy Unknown SEIZURE Verified 04/28/20 12:19 latex [LATEX] Allergy Unknown RASH Verified 04/28/20 12:19 metronidazole [Flagyl] Allergy Unknown Seizure Verified 04/28/20 12:19 lactose Allergy Constipatio Verified 04/28/20 12:19 n CHOCOLATE Allergy Mild PASSOUT Uncoded 04/28/20 12:19 Exam Vital signs: Vital Signs Temp 98.2 F 04/17/20 12:20 Pulse 81 04/17/20 12:20 Resp 16 04/10/20 10:18 BP 104/67 04/17/20 12:20 Pulse Ox 100 04/17/20 12:20 Weight 52.1 kg Body Mass Index 20.3 - Constitutional Present: moderate distress, thin, cachectic, chronically ill appearing, diaphoretic, cooperative - Routine HEENT Exam Head: Present: normal inspection, normocephalic - Routine Neck Exam Present: full ROM - Routine Respiratory Exam Present: CTAB - Routine Cardiovascular Exam Cardiovascular: Present: RRR, S1, S2 - Routine Abdominal Exam Present: distended, normal bowel sounds, nontender - Routine Rectal Exam Patient deferred: digital exam - Routine Extremities Exam Present: nontender. Absent: pedal edema - Routine Skin Exam Present: intact - Routine Neurological Exam Present: alert, oriented X3 - Detailed Neurological Exam: Coma Scale Eye Opening: Spontaneous (4) - Routine Psychiatric Exam Present: normal affect Data - Labs CBC & Chem 7: 05/01/20 09:05 05/01/20 09:05 Progress Note: A/P (1) Ovarian cancer Problem details: Initial diagnosis of endometrial carcinoma and peritoneal sero us carcinoma 2011, she was treated with adjuvant chemotherapy and multiple reoccurring episodes with chemotherapy and treatment. Ovarian cancer. Debulking surgery in 2011 at [facility] Status: Acute Assessment and plan: This is a pleasant 54 year-old lady with recurrent Ovarian Cancer. She was started on chemotherapy with Doxil on 09/03/2019. She has been tolerating it well. Her tumor marker appears to be declining. She mentions distension of the abdomen. She is concerned about ascites reaccumulating, however there is no fluid thrill nor shifting dullness. Belly feels more fatty. She was reassured. She received cycle 3 of the Doxil, on October 28. She had her 4th cycle of Doxil, November 25. She had the CT scan for restaging. It revealed stable cystic disease in the abdomen, but increased fluid collection and ascites. She had paracentesis under ultrasound guidance, on December 09 with removal of 4.7 L of dark serosanguineous/slightly bloody fluid. She had paracentesis on January 09. She had most recent CT scan of the abdomen from February 05 which revealed: Diffuse large ascites compressing the solid organs such as kidneys, adrenal gland and the pancreas to is a posterior abdomen. There is mass effect in the antrum of the liver as well. There is mild thickening of the peritoneal lining in the lower abdomen secondary to seeding. Her tumor marker increased to 550 today from 09/08December 16. She underwen a paracentesis with removal of 4.4 L of fluid on February 09. I had referred her to [facility], for nutrition counseling. She was switched to Topotecan. She had 1 cycle between 02/23 through 02/27. She did tolerated however she developed significant pancytopenia. She was given a unit of platelets but no blood transfusion. She is still rather dizzy week short of breath and has been falling. Hemoglobin is still below 9. This is a pleasant 54 year-old lady with recurrent Ovarian Cancer. She was started on chemotherapy with Doxil on 09/03/2019. She has been tolerating it well. Her tumor marker appears to be declining. She mentions distension of the abdomen. She is concerned about ascites reaccumulating, however there is no fluid thrill nor shifting dullness. Belly feels more fatty. She was reassured. She received cycle 3 of the Doxil, on October 28. She had her 4th cycle of Doxil, November 25. She had the CT scan for restaging. It revealed stable cystic disease in the abdomen, but increased fluid collection and ascites. She had paracentesis under ultrasound guidance, on December 09 with removal of 4.7 L of dark serosanguineous/slightly bloody fluid. She had paracentesis on January 09. She had most recent CT scan of the abdomen from February 05 which revealed: Diffuse large ascites compressing the solid organs such as kidneys, adrenal gland and the pancreas to is a posterior abdomen. There is mass effect in the antrum of the liver as well. There is mild thickening of the peritoneal lining in the lower abdomen secondary to seeding. Her tumor marker increased to 550 today from 09/08December 16. She underwen a paracentesis with removal of 4.4 L of fluid on February 09. I had referred her to [facility] for nutrition counseling. She was switched to Topotecan. She had 1 cycle between 02/23 through 02/27. She did tolerated however she developed significant pancytopenia. She was given a unit of platelets but no blood transfusion. She was rather dizzy week short of breath and had been falling. Hemoglobin was still below 9. She was given a unit of blood. She came in today with nausea and vomiting. She has been started on Keflex for a possible UTI when she was seen in the ER April 28. Her urine culture is negative. PLAN: I will hold off on the antibiotic. Will give her IV hydration and antiemetic. Potassium is low, this will be replaced. She would like to continue on the olaparib. She has been tolerating that well, so far. She will return in a couple weeks for a follow-up. She will let me know when she feels that the ascites has to be tapped. She will call if she has any questions or concerns. Thank you, CC: Dr. Ochs. Rafaela Gama. [employer]. [facility] Baker. Code Status FULL CODE CC: Dr. Ochs. Rafaela Gama. [employer]. [facility] Baker. Code Status FULL CODE (2) Recurrent malignant neoplasm of ovary Status: Acute - Time Spent With Patient Total time spent is greater than 50% in coordination of care (as documented) at patient's floor/unit and/or counseling patient: 25 - 35 minutes
[2020-05-01 08:50] VITALS: BP 117/75; PULSE 96; RESP 17; TEMP 36.6; O2SAT 100
[2020-05-01] MEDS: 0.9 % Sodium Chloride 1,000 ML 500 ML IVCONT (09:13)
[2020-05-01] MEDS: ondansetron HCL/NS 16 MG/50 ML PIGGYBACK 200 MG IV (09:16)
[2020-05-01 09:32] LABS: Basophils Absolute Auto 0.1 X10*3/uL (0.0-0.2); Basophils Percent Auto 1.2 % (0-2); Eosinophils Absolute Auto 0.1 X10*3/uL (0.0-0.4); Eosinophils Percent Auto 1.9 % (0-4); Imm Gran Abs Auto 0.02 X10*3/uL (0.00-0.03); Imm Gran Pct Auto 0.4 % (0.0-0.4); Lymphocytes Absolute Auto 1.5 X10*3/uL (1.2-4.9); Lymphocytes Percent Auto 29.2 % (20-40); MANUAL DIFF FLAG NO; Mean Corpuscular HGB Conc 33.3 g/dl (31.0-35.0); Mean Corpuscular Hemoglobin 35.7 pg (27.0-33.0); Mean Corpuscular Volume 107.1 fL (80-98); Mean Platelet Volume 10.7 fL (9.4-12.3); Monocytes Absolute Auto 0.5 X10*3/uL (0.1-1.2); Monocytes Percent Auto 9.1 % (2-11); NRBC Pct Auto 0.8 /100WBC (0.0-0.2); Neutrophils Percent Auto 58.2 % (45-73); Platelet Count 226 X10*3/uL (160-400); Red Blood Count 2.52 X10*6/uL (4.20-5.50); Red Cell Distribution Width 21.9 % (11.0-16.0); White Blood Count 5.2 X10*3/uL (4.8-10.8)
[2020-05-01 10:47] LABS: Alanine Aminotransferase 12 U/L (0-31); Albumin Level 2.9 g/dL (3.5-5.0); Alkaline Phosphatase 99 U/L (39-117); Anion Gap 12 (12-20); Aspartate Amino Transferase 21 U/L (5-31); Bilirubin Total 0.5 mg/dL (0.0-1.0); Blood Urea Nitrogen 12 mg/dL (9-16); Calcium 7.4 mg/dL (8.4-10.2); Carbon Dioxide 26 mmol/L (22-29); Chloride 103 mmol/L (96-108); Estimated Glomerular Filt Rate > 60; Glucose Random 160 mg/dL (60-115); Potassium 2.7 mmol/l (3.3-5.1); Sodium 138 mmol/L (135-145); Total Protein 4.8 g/dL (6.5-8.0)
[2020-05-01] MEDS: Potassium Chloride/H20 10 MEQ/100 ML PIGGYBACK 100 MEQ IV ×2 (11:12→12:11)
--- NOTE | 2020-05-01 13:59 | MHC.HEMONC ---
pt here this morning for labs but she began vomiting in Clinic. Dr Washburn had us keep her for hydration. Her K+ level was only 2.7 so she was given 20mEq Potassium over two hours after hydration. She tolerated it well. She does feel her abdomen has fluid so she is being booked for u/s guided paracentisis, hopefully on Monday. She received IV Zofran here with good effect. Return next week for labs.
--- NOTE | 2020-05-01 15:29 | MHC.HEMONC ---
Voicemail left regarding scheduled paracentesis on Monday at 11am, arrive to [facility] at 10am- NPO after midnight. Pt instructed to call office with any questions.
[2020-05-08 08:44] VITALS: BP 107/59; PULSE 118; RESP 18; TEMP 36.6; O2SAT 99
[2020-05-08 08:46] VITALS: BMI 19.3
--- NOTE | 2020-05-08 09:00 | P.PNHO_ITS ---
Medical Summary - Medical Summary Chief complaint: F/U for Ovarian Carcinoma. Medical Summary: DIAGNOSIS: RECURRENT OVARIAN CARCINOMA. History of stage I endometrial carcinoma and peritoneal serous carcinoma, initially diagnosed back in 2011. She underwent debulking surgery by Dr. Perez, at [facility]. Subsequently had adjuvant chemotherapy with cisplatin and docetaxel. (developed a reaction to Taxol.) February 2015 she developed recurrent peritoneal carcinomatosis and was treated with carbo Taxotere x6. November 2015 she had partial small-bowel obstruction treated conservatively. January 2016 she was treated with carbo Gemzar for 12 cycles up until 2016. She was then on maintenance Niraparib for couple of years when she was noted to be BRCA 1 mutation positive. December 2018 she again developed peritoneal recurrence. Treated with carbo Gemzar x7 between February 19 through July 30 2019. She now has increasing CA 125. Today was 85. CT scan from August 12 reveals disease progression with new rounded loculated component, cystic mets in the pelvis. CURRENT THERAPY: On DOXIL: Started September 02. Cycle 2 on September 30. Cycle 3 on October 28. Cycle 4 November 25. Cycle 5 December 23. Cycle 6, on January 20. Topotecan, Started February 23. 2nd cycle 03/16 - 03/20. Currently on Olaparib. Interval History Interval history: This is a pleasant 54-year-old lady, here for a follow-up visit. She tells me she is feeling quite well today. She just received the pottasium from the pharmacy yesterday. She took it last nite. Her energy level got much better this morning. She has been walking around. She under went a paracentesis, on monday, with removal of 5 1/2 liters of fluid. She denies much abdominal distension. No vomiting. No heartburn Indigestion. Her bowels are working she goes few times a day. That is because she took a stool softener for constipation. She has an altered taste in the mouth. She has lost weight. Denies any fever nor chills. No headache no dizziness. She has no chest pain but sometimes she gets short of breath on exertion. She is in good spirits. Rest of the review of systems is unremarkable. Recent history: She was seen in ER on 04/28 for urinary retention and possible UTI. she had a straight cath done there was no urine in the bladder. She had a urine culture sent and was started on Keflex. She did not have a paracentesis done. she tells me shins he started the Keflex she has had some nausea and vomiting. She does not feel well at all. She mentions she feels dizzy. She has felt nauseous. she tells me that the Zofran ODT works better and faster. her appetite is so-so. She has lost weight. At her previous visit she was in the waiting room and felt dizzy. she then said she could not see anything. She was brought to the bed to lay her down. During that process she vomited. She was unresponsive for a few seconds but then she came to quickly. She looked rather pale however, she was talking, being apologetic. Rapid Response team was called however her blood pressure was 116/68, pulse was 100 and O2 sat was 99%. Her port was accessed and labs, including a type and screen, were drawn. IV fluids was started. She had to be admitted after her last cycle of chemotherapy with Topotecan. She developed hypokalemia, thrombocytopenia and low protein levels. She pesented with complaints of abdominal pain. Her abdominal pain was generalized. She had associated nausea and vomiting. She denied associated fever, chills, diarrhea. She had shortness of breath but denied any associated cough. She had required paracentesis, approximately once a month for the past several months. She underwent a CAT scan of the abdomen which revealed large volume ascites. Her electrolytes were abnormal with a magnesium of 1.0 and a potassium 3.0. She was noted to be thrombocytopenic with a platelet count of 37. Her ascites worsened. It was drained. she had 5 L removed. Review of Systems - Constitutional Denies fatigue, Denies fever(s), Denies malaise - Eyes Reports system reviewed and no additional complaints, except as documented - ENT Reports system reviewed and no additional complaints, except as documented - Cardiovascular Reports system reviewed and no additional complaints, except as documented - Respiratory Reports no additional respiratory complaints - Gastrointestinal Reports system reviewed and no additional complaints, except as documented, Reports abdominal pain, Reports belching, Denies bloating - Genitourinary Reports no additional female genitourinary complaints - Neurologic Reports system reviewed and no additional complaints, except as documented, Reports hearing normal, Reports vertigo, Reports dizziness, Reports weakness - Psychiatric Reports system reviewed and no additional complaints, except as documented - Endocrine Reports no additional endocrine complaints - Allergic/Immunologic Reports system reviewed and no additional complaints, except as documented [facility] Medical History: Medical History (Last Reviewed 04/28/20 @ 13:47 by Josie Leonard) Anxiety disorder Ascites Bulimia Chronic constipation Endometrial carcinoma Epilepsy Hx of bulimia nervosa Hypertension Ovarian ca Post hysterectomy menopause Recurrent UTI Urinary retention Uterine cancer Family History: Family History (Last Reviewed 04/28/20 @ 12:19 by Armando Lee [facility]) Father Stroke Mother Hypertension Heart disease Surgical History: Surgical History (Last Reviewed 04/28/20 @ 13:47 by Josie Leonard) H/O: hysterectomy Onset Date: ~2011 History of esophagogastroduodenoscopy (EGD) Hx of colonoscopy Hx of tonsillectomy Home Medications and Allergies Current Medications: Current Medications Generic Name Dose Route Start Last Admin Trade Name Freq PRN Reason Stop Dose Admin Heparin Sodium (Porcine) 500 0 unit 05/08/20 08:58 unit/ Sodium Chloride 5 ml IVFLUSH 05/08/20 08:59 ONCE ONE Ondansetron HCl 16 mg in 50 mls @ 200 mls/hr 05/01/20 09:00 05/01/20 09:35 Zofran IV Infused ONCE [facility] Infusion Home Medications Medication Instructions Recorded Confirmed Type omeprazole 1 cap PO BID 03/30/20 04/23/20 History olaparib 150 mg tablet 150 mg PO BID 04/23/20 05/01/20 History olanzapine 5 mg tablet 5 mg PO BEDTIME 04/28/20 History ondansetron 8 mg disintegrating 8 mg PO Q8H PRN 04/28/20 05/01/20 History tablet Allergies Allergy/AdvReac Type Severity Reaction Status Date / Time cocaine [Cocaine] Allergy Severe SEIZURE TO Verified 04/28/20 12:19 LIQUID COCAINE codeine [CODEINE] Allergy Severe SEIZURE Verified 04/28/20 12:19 paclitaxel [From TAXOL] Allergy Severe HEART Verified 04/28/20 12:19 STOPPED diphenhydramine Allergy Unknown PALPITATION Verified 04/28/20 12:19 [From BENADRYL] S ibuprofen [IBUPROFEN] Allergy Unknown SEIZURE Verified 04/28/20 12:19 latex [LATEX] Allergy Unknown RASH Verified 11/03/20 12:19 metronidazole [Flagyl] Allergy Unknown Seizure Verified 04/28/20 12:19 lactose Allergy Constipatio Verified 04/28/20 12:19 n CHOCOLATE Allergy Mild PASSOUT Uncoded 04/28/20 12:19 Exam Vital signs: Vital Signs Temp 98.2 F 04/17/20 12:20 Pulse 81 04/17/20 12:20 Resp 16 04/10/20 10:18 BP 104/67 04/17/20 12:20 Pulse Ox 100 04/17/20 12:20 Weight 52.1 kg Body Mass Index 20.3 - Constitutional Present: moderate distress, thin, cachectic, chronically ill appearing, diaphoretic, cooperative - Routine HEENT Exam Head: Present: normal inspection, normocephalic - Routine Neck Exam Present: full ROM - Routine Respiratory Exam Present: CTAB - Routine Cardiovascular Exam Cardiovascular: Present: RRR, S1, S2 - Routine Abdominal Exam Present: distended, normal bowel sounds, nontender - Routine Rectal Exam Patient deferred: digital exam - Routine Extremities Exam Present: nontender. Absent: pedal edema - Routine Skin Exam Present: intact - Routine Neurological Exam Present: alert, oriented X3 - Detailed Neurological Exam: Coma Scale Eye Opening: Spontaneous (4) - Routine Psychiatric Exam Present: normal affect Data - Labs CBC & Chem 7: 05/08/20 09:10 05/08/20 09:10 Progress Note: A/P (1) Ovarian cancer Problem details: Initial diagnosis of endometrial carcinoma and peritoneal serous carcinoma 2011, she was treated with adjuvant chemotherapy and multiple reoccurring episodes with chemotherapy and treatment. Ovarian cancer. Debulking surgery in 2011 at [facility] Status: Acute Assessment and plan: This is a pleasant 54 year-old lady with recurrent Ovarian Cancer. She was started on chemotherapy with Doxil on 09/03/2019. She has been tolerating it well. Her tumor marker appears to be declining. She mentions distension of the abdomen. She is concerned about ascites reaccumulating, however there is no fluid thrill nor shifting dullness. Belly feels more fatty. She was reassured. She received cycle 3 of the Doxil, on October 28. She had her 4th cycle of Doxil, November 25. She had the CT scan for restaging. It revealed stable cystic disease in the abdomen, but increased fluid collection and ascites. She had paracentesis under ultrasound guidance, on December 09 with removal of 4.7 L of dark serosanguineous/slightly bloody fluid. She had paracentesis on January 09. She had most recent CT scan of the abdomen from February 05 which revealed: Diffuse large ascites compressing the solid organs such as kidneys, adrenal gland and the pancreas to is a posterior abdomen. There is mass effect in the antrum of the liver as well. There is mild thickening of the peritoneal lining in the lower abdomen secondary to seeding. Her tumor marker increased to 550 today from 09/08December 16. She underwen a paracentesis with removal of 4.4 L of fluid on February 09. I had referred her to [facility] for nutrition counseling. She was switched to Topotecan. She had 1 cycle between 02/23 through 02/27. She did tolerated however she developed significant pancytopenia. She was given a unit of platelets but no blood transfusion. She is still rather dizzy week short of breath and has been falling. Hemoglobin is still below 9. This is a pleasant 54 year-old lady with recurrent Ovarian Cancer. She was started on chemotherapy with Doxil on 09/03/2019. She has been tolerating it well. Her tumor marker appears to be declining. She mentions distension of the abdomen. She is concerned about ascites reaccumulating, however there is no fluid thrill nor shifting dullness. Belly feels more fatty. She was reassured. She received cycle 3 of the Doxil, on October 28. She had her 4th cycle of Doxil, November 25. She had the CT scan for restaging. It revealed stable cystic disease in the abdomen, but increased fluid collection and ascites. She had paracentesis under ultrasound guidance, on December 09 with removal of 4.7 L of dark serosanguineous/slightly bloody fluid. She had paracentesis on January 09. She had most recent CT scan of the abdomen from February 05 which revealed: Diffuse large ascites compressing the solid organs such as kidneys, adrenal gland and the pancreas to is a posterior abdomen. There is mass effect in the antrum of the liver as well. There is mild thickening of the peritoneal lining in the lower abdomen secondary to seeding. Her tumor marker increased to 550 today from 09/08December 16. She underwent a paracentesis with removal of 4.4 L of fluid on February 09. I had referred her to [facility], for nutrition counseling. She was switched to Topotecan. She had 1 cycle between 02/23 through 02/27. She did tolerated however she developed significant pancytopenia. She was given a unit of platelets but no blood transfusion. She has been feeling better since after the paracentesis. No N/V. Has more energy. PLAN: Potassium is low, will continue to replace. She would like to continue on the olaparib. She has been tolerating that well, so far. Will go up to the full dose, now that she is tolerating it. She will return in a couple weeks for a follow-up. She has been scheduled q 3 weekly for repeat paracenteses. She will call if she has any questions or concerns. Thank you, CC: Dr. Milligan. Rafaela Gama. CONTROL ROOM TECHNICIAN. [facility] Baker. Code Status FULL CODE (2) Recurrent malignant neoplasm of ovary Status: Acute - Time Spent With Patient Total time spent is greater than 50% in coordination of care (as documented) at patient's floor/unit and/or counseling patient: 25 - 35 minutes
--- NOTE | 2020-05-08 09:22 | MHC.HEMONC ---
Pt here for labs. States feeling better after paracentesis. Port accessed, good blood return. Labs collected, will review and call pt if results abnormal.
[2020-05-08 09:25] LABS: MANUAL DIFF FLAG NO
[2020-05-08 09:28] LABS: Basophils Absolute Auto 0.1 X10*3/uL (0.0-0.2); Basophils Percent Auto 1.2 % (0-2); Eosinophils Absolute Auto 0.1 X10*3/uL (0.0-0.4); Eosinophils Percent Auto 2.1 % (0-4); Hematocrit 34.2 % (37-47); Hemoglobin 11.6 g/dl (12.0-16.0); Imm Gran Abs Auto 0.05 X10*3/uL (0.00-0.03); Imm Gran Pct Auto 0.8 % (0.0-0.4); Lymphocytes Percent Auto 29.7 % (20-40); Mean Corpuscular HGB Conc 33.9 g/dl (31.0-35.0); Mean Corpuscular Hemoglobin 36.3 pg (27.0-33.0); Mean Corpuscular Volume 106.9 fL (80-98); Mean Platelet Volume 10.3 fL (9.4-12.3); Monocytes Absolute Auto 0.5 X10*3/uL (0.1-1.2); Monocytes Percent Auto 7.4 % (2-11); NRBC Pct Auto 0.5 /100WBC (0.0-0.2); Neutrophils Absolute Auto 3.9 X10*3/uL (2.0-8.3); Neutrophils Percent Auto 58.8 % (45-73); Platelet Count 309 X10*3/uL (160-400); Red Cell Distribution Width 20.7 % (11.0-16.0); White Blood Count 6.6 X10*3/uL (4.8-10.8)
[2020-05-08 09:58] LABS: Alanine Aminotransferase 15 U/L (0-31); Albumin Level 2.6 g/dL (3.5-5.0); Alkaline Phosphatase 113 U/L (39-117); Aspartate Amino Transferase 26 U/L (5-31); Bilirubin Total 1.4 mg/dL (0.0-1.0); Blood Urea Nitrogen 13 mg/dL (9-16); Calcium 7.5 mg/dL (8.4-10.2); Creatinine Clr Calc Pharmacy 68.9; Estimated Glomerular Filt Rate > 60; Glucose Random 113 mg/dL (60-115); Total Protein 4.3 g/dL (6.5-8.0)
[2020-05-08 10:06] LABS: Anion Gap 12 (12-20); Carbon Dioxide 25 mmol/L (22-29); Chloride 102 mmol/L (96-108); Potassium 3.6 mmol/l (3.3-5.1); Sodium 135 mmol/L (135-145)
--- NOTE | 2020-05-08 10:24 | MHC.HEMONC ---
ULTRASOUND GUIDED PARECENTESIS SCHEDULE FOR 05/11/2020 AT 11:30AM. PT TO ARRIVE TO SS AT 10:30AM. THIS IS A STANDING ORDER FOR EVERY 3 WEEKS FOR 6 MONTHS. APPOINTMENTS HAVE TO BE CALLED INTO SURGERY EVERY THREE WEEKS.
--- NOTE | 2020-05-08 10:54 | MHC.HEMONC ---
PT HAD US GUIDED PARACENTEISIS PROCEDURE PERFORMED ON 05/04/2020. NEXT APPT WILL BE ON 06/01/2020 (RESCHEDULED FROM 05/11/2020) AT 11:30AM. PT WAS INFORMED OF APPT.
--- NOTE | 2020-05-08 16:16 | MHC.HEMONC ---
pt was told by Dr Washburn to increase her oral chemo to 2 pills twice a day as prescribed. (She was originally taking half doses to see if it was amarilis it ok). She agreed to do this. Labs reviewed, Calcium low but otherwise looking not too bad. Pt will be getting q [address] Washburn.
[2020-05-09 11:36] LABS: CA-125 407 U/mL (<35)
[2020-05-12 08:26] VITALS: BP 117/81; PULSE 115; RESP 18; TEMP 36.2; O2SAT 100; BMI 19.3
--- NOTE | 2020-05-12 09:00 | PM.HEMONCPN ---
Medical Summary - Medical Summary Chief complaint: follow-up for: Ovarian carcinoma recurrence. Medical Summary: DIAGNOSIS: RECURRENT OVARIAN CARCINOMA. History of stage I endometrial carcinoma and peritoneal serous carcinoma, initially diagnosed back in 2011. She underwent debulking surgery by Dr. Perez, at [facility]. Subsequently had adjuvant chemotherapy with cisplatin and docetaxel. (developed a reaction to Taxol.) February 2015 she developed recurrent peritoneal carcinomatosis and was treated with carbo Taxotere x6. November 2015 she had partial small-bowel obstruction treated conservatively. January 2016 she was treated with carbo Gemzar for 12 cycles up until 2016. She was then on maintenance Niraparib for couple of years when she was noted to be BRCA 1 mutation positive. December 2018 she again developed peritoneal recurrence. Treated with carbo Gemzar x7 between February 19 through July 30 2019. She now has increasing CA 125. Today was 85. CT scan from August 12 reveals disease progression with new rounded loculated component, cystic mets in the pelvis. CURRENT THERAPY: On DOXIL: Started September 02. Cycle 2 on September 30. Cycle 3 on October 28. Cycle 4 November 25. Cycle 5 December 23. Cycle 6, on January 20. Topotecan, Started February 23. 2nd cycle 03/16 - 03/20. Currently on Olaparib. Interval History Interval history: This is a pleasant 54-year-old lady, here for a follow-up visit. She tells me she is feeling quite well today. After she received the pottassium from the pharmacy, her energy level got much better. She has been active, walking around. She under went a paracentesis, on Monday, with removal of 5 1/2 liters of fluid. She denies much abdominal distension. No vomiting. No heartburn Indigestion. Her bowels are working she goes few times a day. That is because she takes a stool softener for constipation. She has an altered taste in the mouth. She has lost weight. Denies any fever nor chills. No headache no dizziness. She has no chest pain but sometimes she gets short of breath on exertion. She is in good spirits. Rest of the review of systems is unremarkable. Recent history: She was seen in ER on 04/28 for urinary retention and possible UTI. she had a straight cath done there was no urine in the bladder. She had a urine culture sent and was started on Keflex. She did not have a paracentesis done. she tells me shins he started the Keflex she has had some nausea and vomiting. She does not feel well at all. She mentions she feels dizzy. She has felt nauseous. she tells me that the Zofran ODT works better and faster. her appetite is so-so. She has lost weight. At her previous visit she was in the waiting room and felt dizzy. she then said she could not see anything. She was brought to the bed to lay her down. During that process she vomited. She was unresponsive for a few seconds but then she came to quickly. She looked rather pale however, she was talking, being apologetic. Rapid Response team was called however her blood pressure was 116/68, pulse was 100 and O2 sat was 99%. Her port was accessed and labs, including a type and screen, were drawn. IV fluids was started. She had to be admitted after her last cycle of chemotherapy with Topotecan. She developed hypokalemia, thrombocytopenia and low protein levels. She pesented with complaints of abdominal pain. Her abdominal pain was generalized. She had associated nausea and vomiting. She denied associated fever, chills, diarrhea. She had shortness of breath but denied any associated cough. She had required paracentesis, approximately once a month for the past several months. She underwent a CAT scan of the abdomen which revealed large volume ascites. Her electrolytes were abnormal with a magnesium of 1.0 and a potassium 3.0. She was noted to be thrombocytopenic with a platelet count of 37. Her ascites worsened. It was drained. she had 5 L removed. Review of Systems - Constitutional Reports anorexia, Reports lack of energy, Denies body ache(s) - Eyes Denies blurry vision - ENT Reports system reviewed and no additional complaints, except as documented - Cardiovascular Denies chest pain at rest - Respiratory Denies chest congestion - Gastrointestinal Reports abdominal pain, Reports change in bowel habits - Musculoskeletal Denies back pain - Integumentary/Breasts Skin/Breast: Denies bleeding lesions - Neurologic Reports system reviewed and no additional complaints, except as documented, Reports hearing normal, Reports vertigo, Reports dizziness, Reports weakness - Endocrine Denies cold intolerance - Hematologic/Lymphatic Denies easy bruising [facility] Medical History: Medical History (Last Reviewed 04/28/20 @ 13:47 by Josie Leonard) Anxiety disorder Ascites Bulimia Chronic constipation Endometrial carcinoma Epilepsy Hx of bulimia nervosa Hypertension Ovarian ca Post hysterectomy menopause Recurrent UTI Urinary retention Uterine cancer Functional capacity: independent ambulation Patient : No Family History: Family History (Last Reviewed 04/28/20 @ 12:19 by Armando Lee, [facility]) Father Stroke Mother Hypertension Heart disease Surgical History: Surgical History (Last Reviewed 04/28/20 @ 13:47 by Josie Leonard) H/O: hysterectomy Onset Date: ~2011 History of esophagogastroduodenoscopy (EGD) Hx of colonoscopy Hx of tonsillectomy Home Medications and Allergies Current Medications: Current Medications Generic Name Dose Route Start Last Admin Trade Name Freq PRN Reason Stop Dose Admin Ondansetron HCl 16 mg in 50 mls @ 200 mls/hr 05/01/20 09:00 05/01/20 09:35 Zofran IV Infused ONCE [facility] Infusion Home Medications Medication Instructions Recorded Confirmed Type omeprazole 1 cap PO BID 03/30/20 04/23/20 History olaparib 150 mg tablet 150 mg PO BID 04/23/20 05/01/20 History olanzapine 5 mg tablet 5 mg PO BEDTIME 04/28/20 History ondansetron 8 mg disintegrating 8 mg PO Q8H PRN 04/28/20 05/01/20 History tablet Allergies Allergy/AdvReac Type Severity Reaction Status Date / Time cocaine [Cocaine] Allergy Severe SEIZURE TO Verified 04/28/20 12:19 LIQUID COCAINE codeine [CODEINE] Allergy Severe SEIZURE Verified 04/28/20 12:19 paclitaxel [From TAXOL] Allergy Severe HEART Verified 04/28/20 12:19 STOPPED diphenhydramine Allergy Unknown PALPITATION Verified 04/28/20 12:19 [From BENADRYL] S ibuprofen [IBUPROFEN] Allergy Unknown SEIZURE Verified 04/28/20 12:19 latex [LATEX] Allergy Unknown RASH Verified 04/28/20 12:19 metronidazole [Flagyl] Allergy Unknown Seizure Verified 04/28/20 12:19 lactose Allergy Constipatio Verified 04/28/20 12:19 n CHOCOLATE Allergy Mild PASSOUT Uncoded 04/28/20 12:19 Exam Vital signs: Vital Signs Temp 98.2 F 04/17/20 12:20 Pulse 81 04/17/20 12:20 Resp 16 04/10/20 10:18 BP 104/67 04/17/20 12:20 Pulse Ox 100 04/17/20 12:20 Weight 52.1 kg Body Mass Index 20.3 - Constitutional Present: moderate distress, thin, cachectic, chronically ill appearing, diaphoretic, cooperative - Routine HEENT Exam Head: Present: normal inspection, normocephalic - Routine Neck Exam Present: full ROM - Routine Respiratory Exam Present: CTAB - Routine Cardiovascular Exam Cardiovascular: Present: RRR, S1, S2 - Routine Abdominal Exam Present: distended, normal bowel sounds, nontender - Routine Rectal Exam Patient deferred: digital exam - Routine Extremities Exam Present: nontender. Absent: pedal edema - Routine Skin Exam Present: intact - Routine Neurological Exam Present: alert, oriented X3 - Detailed Neurological Exam: Coma Scale Eye Opening: Spontaneous (4) - Routine Psychiatric Exam Present: normal affect Data - Labs CBC & Chem 7: 05/08/20 09:10 05/08/20 09:10 Progress Note: A/P (1) Ovarian cancer Problem details: Initial diagnosis of endometrial carcinoma and peritoneal serous carcinoma 2011, she was treated with adjuvant chemotherapy and multiple reoccurring episodes with chemotherapy and treatment. Ovarian cancer. Debulking surgery in 2011 at [facility] Status: Acute Assessment and plan: This is a pleasant 54 year-old lady with recurrent Ovarian Cancer. She was started on chemotherapy with Doxil on 09/03/2019. She has been tolerating it well. Her tumor marker appears to be declining. She mentions distension of the abdomen. She is concerned about ascites reaccumulating, however there is no fluid thrill nor shifting dullness. Belly feels more fatty. She was reassured. She received cycle 3 of the Doxil, on October 28. She had her 4th cycle of Doxil, November 25. She had the CT scan for restaging. It revealed stable cystic disease in the abdomen, but increased fluid collection and ascites. She had paracentesis under ultrasound guidance, on December 09 with removal of 4.7 L of dark serosanguineous/slightly bloody fluid. She had paracentesis on January 09. She had most recent CT scan of the abdomen from February 05 which revealed: Diffuse large ascites compressing the solid organs such as kidneys, adrenal gland and the pancreas to is a posterior abdomen. There is mass effect in the antrum of the liver as well. There is mild thickening of the peritoneal lining in the lower abdomen secondary to seeding. Her tumor marker increased to 550 today from 09/08December 16. She underwen a paracentesis with removal of 4.4 L of fluid on February 09. I had referred her to [facility], for nutrition counseling. She was switched to Topotecan. She had 1 cycle between 02/23 through 02/27. She did tolerated however she developed significant pancytopenia. Hemoglobin was below 9. She was started on chemotherapy with Doxil on 09/03/2019. She has been tolerating it well. Her tumor marker appears to be declining. She received cycle 3 of the Doxil, on October 28. She had her 4th cycle of Doxil, November 25. She had the CT scan for restaging. It revealed stable cystic disease in the abdomen, but increased fluid collection and ascites. She had paracentesis under ultrasound guidance, on December 09 with removal of 4.7 L of dark serosanguineous/slightly bloody fluid. She had paracentesis on January 09. She had most recent CT scan of the abdomen from February 05 which revealed: Diffuse large ascites compressing the solid organs such as kidneys, adrenal gland and the pancreas to is a posterior abdomen. There is mass effect in the antrum of the liver as well. There is mild thickening of the peritoneal lining in the lower abdomen secondary to seeding. Her tumor marker increased to 550 today from 09/08December 16. She underwent a paracentesis with removal of 4.4 L of fluid on February 09. I had referred her to [facility], for nutrition counseling. She was switched to Topotecan. She had 1 cycle between 02/23 through 02/27. She did tolerated however she developed significant pancytopenia. She was given a unit of platelets but no blood transfusion. She has been feeling better since after the paracentesis, on monday. No N/V. Has more energy. Potassium was low, it was replaced. PLAN: She will continue on the potassium replacement. She would like to continue on the Olaparib. She has been tolerating that well, so far. She is up to the full dose, for the past few days. I will follow-up on her clinically and the tumor marker. She will return in a couple weeks for a follow-up. She has been scheduled q 3 weekly for repeat paracenteses. She will call if she has any questions or concerns. Thank you, CC: Dr. Milligan. Rafaela Gama. DECORATING MACHINE OPERATOR. [facility] Baker. Code Status FULL CODE (2) Recurrent malignant neoplasm of ovary Status: Acute - Time Spent With Patient Total time spent is greater than 50% in coordination of care (as documented) at patient's floor/unit and/or counseling patient: 25 - 35 minutes
--- NOTE | 2020-05-12 09:02 | MHC.HEMONC ---
Pt here for follow up with Dr Washburn. is feeling pretty well. Nausea comes and goes, otherwise stomach feels ok. doesn't feel like there is a lot of fluid in her abdomen. has been constipated, but had BM this morning. Has appointment for labs on Tuesday 05/15.
[2020-05-28 09:40] LABS: MANUAL DIFF FLAG NO
[2020-05-28 09:50] LABS: Basophils Absolute Auto 0.1 X10*3/uL (0.0-0.2); Basophils Percent Auto 1.4 % (0-2); Eosinophils Percent Auto 1.1 % (0-4); Hemoglobin 9.9 g/dl (12.0-16.0); Imm Gran Abs Auto 0.01 X10*3/uL (0.00-0.03); Imm Gran Pct Auto 0.3 % (0.0-0.4); Lymphocytes Absolute Auto 1.8 X10*3/uL (1.2-4.9); Lymphocytes Percent Auto 51.4 % (20-40); Mean Corpuscular HGB Conc 34.1 g/dl (31.0-35.0); Mean Corpuscular Hemoglobin 37.2 pg (27.0-33.0); Monocytes Absolute Auto 0.1 X10*3/uL (0.1-1.2); Monocytes Percent Auto 3.1 % (2-11); Neutrophils Absolute Auto 1.5 X10*3/uL (2.0-8.3); Neutrophils Percent Auto 42.7 % (45-73); Red Blood Count 2.66 X10*6/uL (4.20-5.50); Red Cell Distribution Width 19.4 % (11.0-16.0); White Blood Count 3.6 X10*3/uL (4.8-10.8)
--- NOTE | 2020-05-28 09:56 | MHC.HEMONC ---
Patient had lab work done.
[2020-05-28 10:09] LABS: Platelet Count 69 X10*3/uL (160-400)
[2020-05-28 10:12] LABS: Mean Platelet Volume 12.2 fL (9.4-12.3)
[2020-05-28 10:16] LABS: Alanine Aminotransferase 15 U/L (0-31); Albumin Level 3.1 g/dL (3.5-5.0); Alkaline Phosphatase 87 U/L (39-117); Anion Gap 15 (12-20); Aspartate Amino Transferase 19 U/L (5-31); Bilirubin Total 0.7 mg/dL (0.0-1.0); Blood Urea Nitrogen 22 mg/dL (9-16); Calcium 8.2 mg/dL (8.4-10.2); Carbon Dioxide 22 mmol/L (22-29); Chloride 100 mmol/L (96-108); Estimated Glomerular Filt Rate 57; Glucose Random 120 mg/dL (60-115); Sodium 133 mmol/L (135-145); Total Protein 4.9 g/dL (6.5-8.0)
[2020-05-28] MEDS: 0.9 % Sodium Chloride 500 ML IV (10:22)
--- NOTE | 2020-05-28 10:23 | MHC.HEMONC ---
Patient receiving IV hydration due to emesis.Vitals taken. Patient in chair with family at bedside.
[2020-05-28 10:41] VITALS: BP 98/77; PULSE 101; RESP 20; TEMP 37; O2SAT 97
[2020-05-28] MEDS: Acetaminophen 325 MG TABLET 650 MG PO (11:42)
--- NOTE | 2020-05-28 12:45 | MHC.HEMONCSW ---
PT REQUIRED IV HYDRATION SHE HASN'T BEEN EATING OR DRINKING. DENIES DEPRESSIVE SYMPTOMS BUT IS SLEEPING ALOT AND EXPERIENCING PAIN, NAUSEA AND VOMITING. ADVOCACY, EDUCATION AND SUPPORT PROVIDED.
[2020-05-28 12:55] VITALS: BP 123/72; PULSE 92
[2020-05-28] MEDS: Morphine Sulfate 4 MG/ML CARTRIDGE 3 MG IVPUSH (12:58)
[2020-05-28 13:29] VITALS: BP 99/59; RESP 92
--- NOTE | 2020-05-28 14:40 | MHC.HEMONC ---
Patient stated she felt better and was feeling good enough to leave. 250ml infused at 50ml/hr. Slow rate due to abdomen discomfort with IV fluids
--- NOTE | 2020-05-28 15:36 | PM.HEMONCPN ---
Medical Summary - Medical Summary Date of Service: 05/28/20 Chief complaint: follow-up for: Ovarian cancer. Medical Summary: DIAGNOSIS: RECURRENT OVARIAN CARCINOMA. History of stage I endometrial carcinoma and peritoneal serous carcinoma, initially diagnosed back in 2011. She underwent debulking surgery by Dr. Perez, at [facility]. Subsequently had adjuvant chemotherapy with cisplatin and docetaxel. (developed a reaction to Taxol.) February 2015 she developed recurrent peritoneal carcinomatosis and was treated with carbo Taxotere x6. November 2015 she had partial small-bowel obstruction treated conservatively. January 2016 she was treated with carbo Gemzar for 12 cycles up until 2016. She was then on maintenance Niraparib for couple of years when she was noted to be BRCA 1 mutation positive. December 2018 she again developed peritoneal recurrence. Treated with carbo Gemzar x7 between February 19 through July 30 2019. She now has increasing CA 125. Today was 85. CT scan from August 12 reveals disease progression with new rounded loculated component, cystic mets in the pelvis. CURRENT THERAPY: On DOXIL: Started September 02. Cycle 2 on September 30. Cycle 3 on October 28. Cycle 4 November 25. Cycle 5 December 23. Cycle 6, on January 20. Topotecan, Started February 23. 2nd cycle 03/16 - 03/20. Currently on Olaparib. Interval History Interval history: This is a pleasant 54-year-old lady, here for a follow-up visit. She tells me she is not feeling too well today. She Has had abdominal pain. it is diffusely located. She has had nausea and vomiting since Monday. she keeps a little down. The [facility] nurse asked her to drink vitamin water. She feels abdominal distension and tightness. No heartburn Indigestion. Her bowels are working she goes few times a day. That is because she takes a stool softener for constipation. She has an altered taste in the mouth. She has lost weight. Denies any fever nor chills. No headache no dizziness. She has no chest pain but sometimes she gets short of breath on exertion. She is in good spirits. Rest of the review of systems is unremarkable. Recent history: After she received the pottassium from the pharmacy, her energy level got much better. She has been active, walking around. She under went a paracentesis, on Monday, with removal of 5 1/2 liters of fluid. She was seen in ER on 04/28 for urinary retention and possible UTI. she had a straight cath done there was no urine in the bladder. She had a urine culture sent and was started on Keflex. She did not have a paracentesis done. she tells me shins he started the Keflex she has had some nausea and vomiting. She does not feel well at all. She mentions she feels dizzy. She has felt nauseous. she tells me that the Zofran ODT works better and faster. her appetite is so-so. She has lost weight. At her previous visit she was in the waiting room and felt dizzy. she then said she could not see anything. She was brought to the bed to lay her down. During that process she vomited. She was unresponsive for a few seconds but then she came to quickly. She looked rather pale however, she was talking, being apologetic. Rapid Response team was called however her blood pressure was 116/68, pulse was 100 and O2 sat was 99%. Her port was accessed and labs, including a type and screen, were drawn. IV fluids was started. She had to be admitted after her last cycle of chemotherapy with Topotecan. She developed hypokalemia, thrombocytopenia and low protein levels. She pesented with complaints of abdominal pain. Her abdominal pain was generalized. She had associated nausea and vomiting. She denied associated fever, chills, diarrhea. She had shortness of breath but denied any associated cough. She had required paracentesis, approximately once a month for the past several months. She underwent a CAT scan of the abdomen which revealed large volume ascites. Her electrolytes were abnormal with a magnesium of 1.0 and a potassium 3.0. She was noted to be thrombocytopenic with a platelet count of 37. Her ascites worsened. It was drained. she had 5 L removed. Review of Systems - Constitutional Reports system reviewed and no additional complaints, except as documented, Reports anorexia, Reports fatigue, Denies excessive sweating, Denies fever(s) - Eyes Reports system reviewed and no additional complaints, except as documented - ENT Reports system reviewed and no additional complaints, except as documented - Cardiovascular Reports system reviewed and no additional complaints, except as documented, Reports shortness of breath - Respiratory Reports no additional respiratory complaints - Gastrointestinal Reports system reviewed and no additional complaints, except as documented, Reports abdominal pain, Reports vomiting - Genitourinary Reports no additional female genitourinary complaints, Denies heavy periods - Musculoskeletal Reports system reviewed and no additional complaints, except as documented - Integumentary/Breasts Skin/Breast: Reports no additional skin complaints - Neurologic Reports system reviewed and no additional complaints, except as documented, Reports hearing normal, Reports vertigo, Reports dizziness, Reports weakness PMFSH Medical History: Medical History (Last Reviewed 04/28/20 @ 13:47 by Josie Leonard) Anxiety disorder Ascites Bulimia Chronic constipation Endometrial carcinoma Epilepsy Hx of bulimia nervosa Hypertension Ovarian ca Post hysterectomy menopause Recurrent UTI Urinary retention Uterine cancer Functional capacity: independent ambulation Family History: Family History (Last Reviewed 04/28/20 @ 12:19 [facility] Father Stroke Mother Hypertension Heart disease Surgical History: Surgical History (Last Reviewed 04/28/20 @ 13:47 by Josie Leonard) H/O: hysterectomy Onset Date: ~2011 History of esophagogastroduodenoscopy (EGD) Hx of colonoscopy Hx of tonsillectomy Home Medications and Allergies Current Medications: Current Medications Generic Name Dose Route Start Last Admin Trade Name Freq PRN Reason Stop Dose Admin Ondansetron HCl 16 mg in 50 mls @ 200 mls/hr 05/01/20 09:00 05/01/20 09:35 Zofran IV Infused ONCE [facility] Infusion Home Medications Medication Instructions Recorded Confirmed Type omeprazole 1 cap PO BID 03/30/20 05/25/20 History olaparib 150 mg tablet 150 mg PO BID 04/23/20 05/25/20 History olanzapine 5 mg tablet 5 mg PO BEDTIME 04/28/20 05/25/20 History ondansetron 8 mg disintegrating 8 mg PO Q8H PRN 04/28/20 05/25/20 History tablet Allergies Allergy/AdvReac Type Severity Reaction Status Date / Time cocaine [Cocaine] Allergy Severe SEIZURE TO Verified 04/28/20 12:19 LIQUID COCAINE codeine [CODEINE] Allergy Severe SEIZURE Verified 04/28/20 12:19 ibuprofen [IBUPROFEN] Allergy Severe SEIZURE Verified 05/25/20 12:50 metronidazole [Flagyl] Allergy Severe Seizure Verified 05/25/20 12:50 paclitaxel [From TAXOL] Allergy Severe HEART Verified 04/28/20 12:19 STOPPED diphenhydramine Allergy Intermediate PALPITATION Verified 05/25/20 12:50 [From BENADRYL] S lactose Allergy Intermediate Constipatio Verified 05/25/20 12:50 n latex [LATEX] Allergy Intermediate RASH Verified 05/25/20 12:50 CHOCOLATE Allergy Intermediate PASSOUT Uncoded 05/25/20 12:50 Exam Vital signs: Vital Signs Temp 98.2 F 04/17/20 12:20 Pulse 81 04/17/20 12:20 Resp 16 04/10/20 10:18 BP 104/67 04/17/20 12:20 Pulse Ox 100 04/17/20 12:20 Weight 52.1 kg Body Mass Index 20.3 - Constitutional Present: moderate distress, thin, cachectic, chronically ill appearing, diaphoretic, cooperative - Routine HEENT Exam Head: Present: normal inspection, normocephalic - Routine Neck Exam Present: full ROM - Routine Respiratory Exam Present: CTAB - Routine Cardiovascular Exam Cardiovascular: Present: RRR, S1, S2 - Routine Abdominal Exam Present: distended, normal bowel sounds, nontender - Routine Rectal Exam Patient deferred: digital exam - Routine Extremities Exam Present: nontender. Absent: pedal edema - Routine Skin Exam Present: intact - Routine Neurological Exam Present: alert, oriented X3 - Detailed Neurological Exam: Coma Scale Eye Opening: Spontaneous (4) - Routine Psychiatric Exam Present: normal affect Data - Labs CBC & Chem 7: 05/28/20 09:37 05/28/20 09:37 Labs: 04/10/20 11:15 CA-125 Routine Complete Blood Count Auto Diff Routine Comprehensive Met. Panel Routine 04/17/20 08:32 Heparin Sodium,Porcine Flush 500 unit 0.9 % Sodium Chloride Flush [NS Flush] 5 ml IVFLUSH ONCE 04/17/20 08:45 CMP [Comprehensive Met. Panel] Routine Complete Blood Count Auto Diff Routine 04/17/20 08:50 CA-125 Routine 04/17/20 09:02 Type and Screen Routine 04/17/20 12:20 Heparin Sodium,Porcine Flush 500 unit IVFLUSH .[facility] ONE 04/17/20 12:30 0.9 % Sodium Chloride [Ns] 1,000 ml IVCONT 500 mls/hr 05/01/20 09:00 0.9 % Sodium Chloride [Ns] 1,000 ml IVCONT 500 mls/hr 05/01/20 09:05 CMP [Comprehensive Met. Panel] Routine Complete Blood Count Auto Diff Routine 05/01/20 10:41 Heparin Sodium,Porcine Flush 500 unit 0.9 % Sodium Chloride Flush [NS Flush] 5 ml IVFLUSH ONCE 05/01/20 11:15 Potassium Chloride/H20 10 meq in 100 ml IV Q1H 05/01/20 12:02 Heparin Sodium,Porcine Flush 500 unit IVFLUSH .[facility] ONE 05/08/20 08:58 Heparin Sodium,Porcine Flush 500 unit 0.9 % Sodium Chloride Flush [NS Flush] 5 ml IVFLUSH ONCE 05/08/20 09:03 Heparin Sodium,Porcine Flush 500 unit IVFLUSH .[facility] ONE 05/08/20 09:10 CA-125 Routine Complete Blood Count Auto Diff Routine Comprehensive Met. Panel Routine 05/28/20 09:37 Complete Blood Count Auto Diff Routine Comprehensive Met. Panel Routine 05/28/20 10:15 0.9 % Sodium Chloride [Ns] 500 ml IV 500 mls/hr 05/28/20 11:21 Acetaminophen [Tylenol] 650 mg PO ONCE ONE 05/28/20 12:44 Morphine Sulfate 3 mg IVPUSH ONCE ONE 05/28/20 14:34 Heparin Sodium,Porcine Flush 500 unit 0.9 % Sodium Chloride Flush [NS Flush] 5 ml IVFLUSH ONCE 05/28/20 14:41 Heparin Sodium,Porcine Flush 500 unit IVFLUSH .[facility] ONE Laboratory Last Values WBC 3.6 X10*3/uL (4.8-10.8) L 05/28/20 09:37 RBC 2.66 X10*6/uL (4.20-5.50) L 05/28/20 09:37 Hgb 9.9 g/dl (12.0-16.0) L 05/28/20 09:37 Hct 29.0 % (37-47) L 05/28/20 09:37 MCV 109.0 fL (80-98) H 05/28/20 09:37 MCH 37.2 pg (27.0-33.0) H 05/28/20 09:37 MCHC 34.1 g/dl (31.0-35.0) 05/28/20 09:37 RDW 19.4 % (11.0-16.0) H 05/28/20 09:37 Plt Count 69 X10*3/uL (160-400) L D 05/28/20 09:37 MPV 12.2 fL (9.4-12.3) 05/28/20 09:37 Immature Gran % (Auto) 0.3 % (0.0-0.4) 05/28/20 09:37 Neut % (Auto) 42.7 % (45-73) L 05/28/20 09:37 Lymph % (Auto) 51.4 % (20-40) H 05/28/20 09:37 Schleicher % (Auto) 3.1 % (2-11) 05/28/20 09:37 Eos % (Auto) 1.1 % (0-4) 05/28/20 09:37 Baso % (Auto) 1.4 % (0-2) 05/28/20 09:37 Lymph # (Auto) 1.8 X10*3/uL (1.2-4.9) 05/28/20 09:37 Schleicher # (Auto) 0.1 X10*3/uL (0.1-1.2) 05/28/20 09:37 Eos # (Auto) 0.0 X10*3/uL (0.0-0.4) 05/28/20 09:37 Baso # (Auto) 0.1 X10*3/uL (0.0-0.2) 05/28/20 09:37 Abs Immat Gran (auto) 0.01 X10*3/uL (0.00-0.03) 05/28/20 09:37 Absolute Neuts (auto) 1.5 X10*3/uL (2.0-8.3) L 05/28/20 09:37 Absolute Nucleated RBC 0.000 X10*3/uL (0.0-0.012) 05/28/20 09:37 Nucleated RBC % (auto) 0.0 /100WBC (0.0-0.2) 05/28/20 09:37 Sodium 133 mmol/L (135-145) L 05/28/20 09:37 Potassium 4.0 mmol/l (3.3-5.1) 05/28/20 09:37 Chloride 100 mmol/L (96-108) 05/28/20 09:37 Carbon Dioxide 22 mmol/L (22-29) 05/28/20 09:37 Anion Gap 15 (12-20) 05/28/20 09:37 BUN 22 mg/dL (9-16) H D 05/28/20 09:37 Creatinine 1.00 mg/dL (0.5-1.4) 05/28/20 09:37 Estim Creat Clear Calc 49.0 05/28/20 09:37 Estimated GFR 57 05/28/20 09:37 Random Glucose 120 mg/dL (60-115) H 05/28/20 09:37 Calcium 8.2 mg/dL (8.4-10.2) L D 05/28/20 09:37 Total Bilirubin 0.7 mg/dL (0.0-1.0) 05/28/20 09:37 AST 19 U/L (5-31) 05/28/20 09:37 ALT 15 U/L (0-31) 05/28/20 09:37 Alkaline Phosphatase 87 U/L (39-117) D 05/28/20 09:37 Total Protein 4.9 g/dL (6.5-8.0) L 05/28/20 09:37 Albumin 3.1 g/dL (3.5-5.0) L 05/28/20 09:37 CA 125 Antigen 407 U/mL (<35) H 05/08/20 09:10 Blood Type TNP 04/17/20 09:02 Antibody Screen TNP 04/17/20 09:02 Progress Note: A/P (1) Ovarian cancer Problem details: Initial diagnosis of endometrial carcinoma and peritoneal serous carcinoma 2011, she was treated with adjuvant chemotherapy and multiple reoccurring episodes with chemotherapy and treatment. Ovarian cancer. Debulking surgery in 2011 at [facility] Status: Acute (2) Recurrent malignant neoplasm of ovary Status: Acute Assessment and plan: This is an unfortunate 54-year-old lady, with refractory ovarian carcinoma. She was started on chemotherapy with Doxil on 09/03/2019. She has been tolerating it well. Her tumor marker appears to be declining. She mentions distension of the abdomen. She is concerned about ascites reaccumulating, however there is no fluid thrill nor shifting dullness. Belly feels more fatty. She was reassured. She received cycle 3 of the Doxil, on October 28. She had her 4th cycle of Doxil, November 25. She had the CT scan for restaging. It revealed stable cystic disease in the abdomen, but increased fluid collection and ascites. She had paracentesis under ultrasound guidance, on December 09 with removal of 4.7 L of dark serosanguineous/slightly bloody fluid. She had paracentesis on January 09. She had most recent CT scan of the abdomen from February 05 which revealed: Diffuse large ascites compressing the solid organs such as kidneys, adrenal gland and the pancreas to is a posterior abdomen. There is mass effect in the antrum of the liver as well. There is mild thickening of the peritoneal lining in the lower abdomen secondary to seeding. Her tumor marker increased to 550 today from 09/08December 16. She underwen a paracentesis with removal of 4.4 L of fluid on February 09. I had referred her to [facility] for nutrition counseling. She was switched to Topotecan. She had 1 cycle between 02/23 through 02/27. She did tolerated however she developed significant pancytopenia. Hemoglobin was below 9. She was started on chemotherapy with Doxil on 09/03/2019. She has been tolerating it well. Her tumor marker appears to be declining. She received cycle 3 of the Doxil, on October 28. She had her 4th cycle of Doxil, November 25. She had the CT scan for restaging. It revealed stable cystic disease in the abdomen, but increased fluid collection and ascites. She had paracentesis under ultrasound guidance, on December 09 with removal of 4.7 L of dark serosanguineous/slightly bloody fluid. She had paracentesis on January 09. She had most recent CT scan of the abdomen from February 05 which revealed: Diffuse large ascites compressing the solid organs such as kidneys, adrenal gland and the pancreas to is a posterior abdomen. There is mass effect in the antrum of the liver as well. There is mild thickening of the peritoneal lining in the lower abdomen secondary to seeding. Her tumor marker increased to 550 today from 09/08December 16. She underwent a paracentesis with removal of 4.4 L of fluid on February 09. I had referred her to [facility], for nutrition counseling. She was switched to Topotecan. She had 1 cycle between 02/23 through 02/27. She did tolerated however she developed significant pancytopenia. She was given a unit of platelets but no blood transfusion. She has been feeling better since after the paracentesis, on monday. She presents with abdominal pain nausea and vomiting. I am concerned about partial bowel obstruction. offered to admit her but she declined. PLAN: She is scheduled for an upper endoscopy tomorrow. She would like to continue on the Olaparib. She has been tolerating that well, so far. She is up to the full dose, for the past few days. I will follow-up on her clinically and the tumor marker. She will return in a couple weeks for a follow-up. She has been scheduled q 3 weekly for repeat paracenteses. She will call if she has any questions or concerns. Thank you, CC: Dr. Milligan. Rafaela Gama. [employer]IC[employer]. [facility] Baker. Code Status FULL CODE - Time Spent With Patient Total time spent is greater than 50% in coordination of care (as documented) at patient's floor/unit and/or counseling patient: 25 - 35 minutes
[2020-05-30 02:33] LABS: CA-125 475 U/mL (<35)
--- NOTE | 2020-06-02 16:34 | MHC.HEMONC ---
Received call from pt. She has had some vomiting since her paracentisis yesterday. She had recent endoscopy and had polyp removed by Dr Arshad and has no results on that . Dr Arshad has asked her to take Prilosec twice a day which she will start. She was advised to call us with further sx. I will advise Dr Washburn that she is only able to eat jello at this point. She is going to try some high protein smoothies.I have asked her to have her [facility] RN call us tomorrow after seeing her.
--- NOTE | 2020-06-05 12:20 | MHC.HEMONC ---
Spoke to Sherin from [facility] following her visit yesterday. Marianne was in better spirits and wasn't c/o pain. She is fatigued and has poor intake. Nurse has asked her (after seeing OTC Diuretic at pt house) to discard it as she suffers from electrolyte imbalance. She (nurse) does not feel pt is at all ready for hospice discussion despite her looking very frail. We will see pt this next week.
--- NOTE | 2020-06-08 16:37 | MHC.HEMONC ---
Pt called earlier today c/o weakness, vomiting, dizziness. States it is from reaction to oxycodone. States she also had seizure. States she has them when she has a reaction to something. Encouraged pt to go to ED for evaluation, but she states she's fine. Denies rash, hives. States she has stopped oxycodone. Dr Washburn notified. Per Dr Washburn, pt to come in tomorrow for IV fluids if vomiting continues. Pt agreeable.
--- NOTE | 2020-06-09 08:10 | PM.HEMONCPN ---
Medical Summary - Medical Summary Date of Service: 06/09/20 Chief complaint: Follow-up for: Ovarian carcinoma. Medical Summary: DIAGNOSIS: RECURRENT OVARIAN CARCINOMA. History of stage I endometrial carcinoma and peritoneal serous carcinoma, initially diagnosed back in 2011. She underwent debulking surgery by Dr. Perez, at [facility]. Subsequently had adjuvant chemotherapy with cisplatin and docetaxel. (developed a reaction to Taxol.) February 2015 she developed recurrent peritoneal carcinomatosis and was treated with carbo Taxotere x6. November 2015 she had partial small-bowel obstruction treated conservatively. January 2016 she was treated with carbo Gemzar for 12 cycles up until 2016. She was then on maintenance Niraparib for couple of years when she was noted to be BRCA 1 mutation positive. December 2018 she again developed peritoneal recurrence. Treated with carbo Gemzar x7 between February 19 through July 30 2019. She now has increasing CA 125. Today was 85. CT scan from August 12 reveals disease progression with new rounded loculated component, cystic mets in the pelvis. CURRENT THERAPY: On DOXIL: Started September 02. Cycle 2 on September 30. Cycle 3 on October 28. Cycle 4 November 25. Cycle 5 December 23. Cycle 6, on January 20. Topotecan, Started February 23. 2nd cycle 03/16 - 03/20. Currently on Olaparib. Interval History Interval history: This is a pleasant 54-year-old lady, here for a follow-up visit. She tells me she is not feeling too well today. She Has had abdominal pain. it is diffusely located. She has had nausea and vomiting since Monday. She keeps a little down. She feels abdominal distension and tightness. No heartburn Indigestion. She had the paracentesis last Monday. She was taking oxycodone. She felt that caused constipation for a few days. So she stopped taking it. She took a stool softener, that helped her constipation. She has an altered taste in the mouth. She has lost weight. Denies any fever nor chills. No headache no dizziness. She has no chest pain but sometimes she gets short of breath on exertion. She is in good spirits. Rest of the review of systems is unremarkable. Previous history: She under went a paracentesis, on Monday, with removal of 5 1/2 liters of fluid. She was seen in ER on 04/28 for urinary retention and possible UTI. she had a straight cath done there was no urine in the bladder. She had a urine culture sent and was started on Keflex. She did not have a paracentesis done. she tells me shins he started the Keflex she has had some nausea and vomiting. She does not feel well at all. She mentions she feels dizzy. She has felt nauseous. she tells me that the Zofran ODT works better and faster. her appetite is so-so. She has lost weight. At her previous visit she was in the waiting room and felt dizzy. she then said she could not see anything. She was brought to the bed to lay her down. During that process she vomited. She was unresponsive for a few seconds but then she came to quickly. She looked rather pale however, she was talking, being apologetic. Rapid Response team was called however her blood pressure was 116/68, pulse was 100 and O2 sat was 99%. Her port was accessed and labs, including a type and screen, were drawn. IV fluids was started. She had to be admitted after her last cycle of chemotherapy with Topotecan. She developed hypokalemia, thrombocytopenia and low protein levels. She pesented with complaints of abdominal pain. Her abdominal pain was generalized. She had associated nausea and vomiting. She denied associated fever, chills, diarrhea. She had shortness of breath but denied any associated cough. She had required paracentesis, approximately once a month for the past several months. She underwent a CAT scan of the abdomen which revealed large volume ascites. Her electrolytes were abnormal with a magnesium of 1.0 and a potassium 3.0. She was noted to be thrombocytopenic with a platelet count of 37. Her ascites worsened. It was drained. she had 5 L removed. After she received the potassium from the pharmacy, her energy level got much better. She has been active, walking around. Review of Systems - Constitutional Reports system reviewed and no additional complaints, except as documented - Eyes Reports system reviewed and no additional complaints, except as documented - ENT Reports system reviewed and no additional complaints, except as documented - Cardiovascular Reports system reviewed and no additional complaints, except as documented - Respiratory Reports no additional respiratory complaints, Denies chest congestion - Gastrointestinal Reports system reviewed and no additional complaints, except as documented, Reports abdominal pain, Reports belching, Reports change in bowel habits, Reports constipation, Reports nausea, Reports vomiting - Genitourinary Reports no additional female genitourinary complaints - Musculoskeletal Reports system reviewed and no additional complaints, except as documented - Integumentary/Breasts Skin/Breast: Reports no additional skin complaints - Neurologic Reports system reviewed and no additional complaints, except as documented, Reports hearing normal, Reports vertigo, Reports dizziness, Reports weakness - Psychiatric Reports system reviewed and no additional complaints, except as documented - Endocrine Reports no additional endocrine complaints - Hematologic/Lymphatic Reports system reviewed and no additional complaints, except as documented - Allergic/Immunologic Reports system reviewed and no additional complaints, except as documented PMFSH Medical History: Medical History (Last Reviewed 06/01/20 @ 08:32 by Felipe Moore) Anxiety disorder Ascites Bulimia Chronic constipation Endometrial carcinoma Epilepsy Hx of bulimia nervosa Hypertension Ovarian ca Post hysterectomy menopause Recurrent UTI Urinary retention Uterine cancer Functional capacity: independent ambulation Patient : No Family History: Family History (Last Reviewed 05/29/20 @ 07:30 by Federica Vigil) Father Stroke Mother Hypertension Heart disease Surgical History: Surgical History (Last Reviewed 06/01/20 @ 08:32 by Felipe Moore) H/O: hysterectomy Onset Date: ~2011 History of esophagogastroduodenoscopy (EGD) Hx of colonoscopy Hx of tonsillectomy Home Medications and Allergies Current Medications: Current Medications Generic Name Dose Route Start Last Admin Trade Name Freq PRN Reason Stop Dose Admin Ondansetron HCl 16 mg in 50 mls @ 200 mls/hr 05/01/20 09:00 05/01/20 09:35 Zofran IV Infused ONCE [facility]IANA Infusion Sodium Chloride 1,000 mls @ 500 mls/hr 06/09/20 08:15 Ns IVCONT 06/09/20 10:14 .Q2H [facility] Home Medications Medication Instructions Recorded Confirmed Type olaparib 150 mg tablet 150 mg PO BID 04/23/20 06/02/20 History olanzapine 5 mg tablet 5 mg PO BEDTIME 04/28/20 06/02/20 History ondansetron 8 mg disintegrating 8 mg PO Q8H PRN 04/28/20 06/02/20 History tablet Allergies Allergy/AdvReac Type Severity Reaction Status Date / Time cocaine [Cocaine] Allergy Severe SEIZURE TO Verified 04/28/20 12:19 LIQUID COCAINE codeine [CODEINE] Allergy Severe SEIZURE Verified 04/28/20 12:19 ibuprofen [IBUPROFEN] Allergy Severe SEIZURE Verified 05/25/20 12:50 metronidazole [Flagyl] Allergy Severe Seizure Verified 05/25/20 12:50 paclitaxel [From TAXOL] Allergy Severe HEART Verified 04/28/20 12:19 STOPPED diphenhydramine Allergy Intermediate PALPITATION Verified 05/25/20 12:50 [From BENADRYL] S lactose Allergy Intermediate Constipatio Verified 05/25/20 12:50 n latex [LATEX] Allergy Intermediate RASH Verified 05/25/20 12:50 CHOCOLATE Allergy Intermediate PASSOUT Uncoded 05/25/20 12:50 Exam Vital signs: Vital Signs Temp 98.6 F 05/28/20 10:41 Pulse 92 05/28/20 12:55 Resp 92 H 05/28/20 13:29 BP 99/59 L 05/28/20 13:29 Pulse Ox 97 05/28/20 10:41 Weight 49.4 kg Body Mass Index 19.3 - Constitutional Present: moderate distress, thin, cachectic, chronically ill appearing, diaphoretic, cooperative - Routine HEENT Exam Head: Present: normal inspection, normocephalic - Routine Neck Exam Present: full ROM - Routine Respiratory Exam Present: CTAB - Routine Cardiovascular Exam Cardiovascular: Present: RRR, S1, S2 - Routine Abdominal Exam Present: distended, normal bowel sounds, nontender - Routine Rectal Exam Patient deferred: digital exam - Routine Extremities Exam Present: nontender. Absent: pedal edema - Routine Skin Exam Present: intact - Routine Neurological Exam Present: alert, oriented X3 - Detailed Neurological Exam: Coma Scale Eye Opening: Spontaneous (4) - Routine Psychiatric Exam Present: normal affect Data - Labs CBC & Chem 7: 06/09/20 08:25 06/09/20 08:25 Labs: 04/10/20 11:15 CA-125 Routine Complete Blood Count Auto Diff Routine Comprehensive Met. Panel Routine 04/17/20 08:32 Heparin Sodium,Porcine Flush 500 unit 0.9 % Sodium Chloride Flush [NS Flush] 5 ml IVFLUSH ONCE 04/17/20 08:45 CMP [Comprehensive Met. Panel] Routine Complete Blood Count Auto Diff Routine 04/17/20 08:50 CA-125 Routine 04/17/20 09:02 Type and Screen Routine 04/17/20 12:20 Heparin Sodium,Porcine Flush 500 unit IVFLUSH .[facility] 04/17/20 12:30 0.9 % Sodium Chloride [Ns] 1,000 ml IVCONT 500 mls/hr 05/01/20 09:00 0.9 % Sodium Chloride [Ns] 1,000 ml IVCONT 500 mls/hr 05/01/20 09:05 CMP [Comprehensive Met. Panel] Routine Complete Blood Count Auto Diff Routine 05/01/20 10:41 Heparin Sodium,Porcine Flush 500 unit 0.9 % Sodium Chloride Flush [NS Flush] 5 ml IVFLUSH ONCE 05/01/20 11:15 Potassium Chloride/H20 10 meq in 100 ml IV Q1H 05/01/20 12:02 Heparin Sodium,Porcine Flush 500 unit IVFLUSH .[facility] ONE 05/08/20 08:58 Heparin Sodium,Porcine Flush 500 unit 0.9 % Sodium Chloride Flush [NS Flush] 5 ml IVFLUSH ONCE 05/08/20 09:03 Heparin Sodium,Porcine Flush 500 unit IVFLUSH .[facility] ONE 05/08/20 09:10 CA-125 Routine Complete Blood Count Auto Diff Routine Comprehensive Met. Panel Routine 05/28/20 09:37 CA-125 Routine Complete Blood Count Auto Diff Routine Comprehensive Met. Panel Routine 05/28/20 10:15 0.9 % Sodium Chloride [Ns] 500 ml IV 500 mls/hr 05/28/20 11:21 Acetaminophen [Tylenol] 650 mg PO ONCE ONE 05/28/20 12:44 Morphine Sulfate 3 mg IVPUSH ONCE ONE 05/28/20 14:34 Heparin Sodium,Porcine Flush 500 unit 0.9 % Sodium Chloride Flush [NS Flush] 5 ml IVFLUSH ONCE 05/28/20 14:41 Heparin Sodium,Porcine Flush 500 unit IVFLUSH .[facility] ONE Laboratory Last Values WBC 3.6 X10*3/uL (4.8-10.8) L 05/28/20 09:37 RBC 2.66 X10*6/uL (4.20-5.50) L 05/28/20 09:37 Hgb 9.9 g/dl (12.0-16.0) L 05/28/20 09:37 Hct 29.0 % (37-47) L 05/28/20 09:37 MCV 109.0 fL (80-98) H 05/28/20 09:37 MCH 37.2 pg (27.0-33.0) H 05/28/20 09:37 MCHC 34.1 g/dl (31.0-35.0) 05/28/20 09:37 RDW 19.4 % (11.0-16.0) H 05/28/20 09:37 Plt Count 69 X10*3/uL (160-400) L D 05/28/20 09:37 MPV 12.2 fL (9.4-12.3) 05/28/20 09:37 Immature Gran % (Auto) 0.3 % (0.0-0.4) 05/28/20 09:37 Neut % (Auto) 42.7 % (45-73) L 05/28/20 09:37 Lymph % (Auto) 51.4 % (20-40) H 05/28/20 09:37 [place] % (Auto) 3.1 % (2-11) 05/28/20 09:37 Eos % (Auto) 1.1 % (0-4) 05/28/20 09:37 Baso % (Auto) 1.4 % (0-2) 05/28/20 09:37 Lymph # (Auto) 1.8 X10*3/uL (1.2-4.9) 05/28/20 09:37 [place] # (Auto) 0.1 X10*3/uL (0.1-1.2) 05/28/20 09:37 Eos # (Auto) 0.0 X10*3/uL (0.0-0.4) 05/28/20 09:37 Baso # (Auto) 0.1 X10*3/uL (0.0-0.2) 05/28/20 09:37 Abs Immat Gran (auto) 0.01 X10*3/uL (0.00-0.03) 05/28/20 09:37 Absolute Neuts (auto) 1.5 X10*3/uL (2.0-8.3) L 05/28/20 09:37 Absolute Nucleated RBC 0.000 X10*3/uL (0.0-0.012) 05/28/20 09:37 Nucleated RBC % (auto) 0.0 /100WBC (0.0-0.2) 05/28/20 09:37 Sodium 133 mmol/L (135-145) L 05/28/20 09:37 Potassium 4.0 mmol/l (3.3-5.1) 05/28/20 09:37 Chloride 100 mmol/L (96-108) 05/28/20 09:37 Carbon Dioxide 22 mmol/L (22-29) 05/28/20 09:37 Anion Gap 15 (-20) 05/28/20 09:37 BUN 22 mg/dL (9-16) H D 05/28/20 09:37 Creatinine 1.00 mg/dL (0.5-1.4) 05/28/20 09:37 Estim Creat Clear Calc 49.0 05/28/20 09:37 Estimated GFR 57 05/28/20 09:37 Random Glucose 120 mg/dL (60-115) H 05/28/20 09:37 Calcium 8.2 mg/dL (8.4-10.2) L D 05/28/20 09:37 Total Bilirubin 0.7 mg/dL (0.0-1.0) 05/28/20 09:37 AST 19 U/L (5-31) 05/28/20 09:37 ALT 15 U/L (0-31) 05/28/20 09:37 Alkaline Phosphatase 87 U/L (39-117) D 05/28/20 09:37 Total Protein 4.9 g/dL (6.5-8.0) L 05/28/20 09:37 Albumin 3.1 g/dL (3.5-5.0) L 05/28/20 09:37 CA 125 Antigen 475 U/mL (<35) H 05/28/20 09:37 Blood Type TNP 04/17/20 09:02 Antibody Screen TNP 04/17/20 09:02 Progress Note: A/P (1) Ovarian cancer Problem details: Initial diagnosis of endometrial carcinoma and peritoneal serous carcinoma 2011, she was treated with adjuvant chemotherapy and multiple reoccurring episodes with chemotherapy and treatment. Ovarian cancer. [facility]bulking surgery in 2011 at [facility] Status: Acute (2) Recurrent malignant neoplasm of ovary Status: Acute Assessment and plan: This is an unfortunate 54-year-old lady, with refractory ovarian carcinoma. She was started on chemotherapy with Doxil on 09/03/2019. She has been tolerating it well. Her tumor marker appears to be declining. She mentions distension of the abdomen. She is concerned about ascites reaccumulating, however there is no fluid thrill nor shifting dullness. Belly feels more fatty. She was reassured. She received cycle 3 of the Doxil, on October 28. She had her 4th cycle of Doxil, November 25. She had the CT scan for restaging. It revealed stable cystic disease in the abdomen, but increased fluid collection and ascites. She had paracentesis under ultrasound guidance, on December 09 with removal of 4.7 L of dark serosanguineous/slightly bloody fluid. She had paracentesis on January 09. She had most recent CT scan of the abdomen from February 05 which revealed: Diffuse large ascites compressing the solid organs such as kidneys, adrenal gland and the pancreas to is a posterior abdomen. There is mass effect in the antrum of the liver as well. There is mild thickening of the peritoneal lining in the lower abdomen secondary to seeding. Her tumor marker increased to 550 today from 09/08December 16. She underwen a paracentesis with removal of 4.4 L of fluid on February 09. I had referred her to [facility] for nutrition counseling. She was switched to Topotecan. She had 1 cycle between 02/23 through 02/27. She did tolerated however she developed significant pancytopenia. Hemoglobin was below 9. She was started on chemotherapy with Doxil on 09/03/2019. She has been tolerating it well. Her tumor marker appears to be declining. She received cycle 3 of the Doxil, on October 28. She had her 4th cycle of Doxil, November 25. She had the CT scan for restaging. It revealed stable cystic disease in the abdomen, but increased fluid collection and ascites. She had paracentesis under ultrasound guidance, on December 09 with removal of 4.7 L of dark serosanguineous/slightly bloody fluid. She had paracentesis on January 09. She had most recent CT scan of the abdomen from February 05 which revealed: Diffuse large ascites compressing the solid organs such as kidneys, adrenal gland and the pancreas to is a posterior abdomen. There is mass effect in the antrum of the liver as well. There is mild thickening of the peritoneal lining in the lower abdomen secondary to seeding. Her tumor marker increased to 550 today from 09/08December 16. She underwent a paracentesis with removal of 4.4 L of fluid on February 09. I had referred her to [facility], for nutrition counseling. She was switched to Topotecan. She had 1 cycle between 02/23 through 02/27. She did tolerated however she developed significant pancytopenia. She was given a unit of platelets but no blood transfusion. She has been feeling better since after the paracentesis, on monday. She has had an upper endoscopy on 05/29: Antral type mucosa with moderate chronic inactive inflammation no had H pylori. For stomach: Fundic gland polyp with moderate chronic active inflammation. She would like to continue on the Olaparib. She has been tolerating that well, so far. She is up to the full dose, for the past few days. I will follow-up on her clinically and the tumor marker. She presents with abdominal pain nausea and vomiting. I am concerned about partial bowel obstruction. I offered to admit her, for further evaluation. She is agreeable. PLAN: I discussed the case with the ER doc. She was given IV hydration and IV Zofran. She was then transferred to the emergency room for further evaluation and management. She will return in a couple weeks for a follow-up. She has been scheduled q 3 weekly for repeat paracenteses. She will call if she has any questions or concerns. Thank you, CC: Dr. Milligan. Rafaela Gama. [employer]. [facility] Baker. Code Status FULL CODE - Time Spent With Patient Total time spent is greater than 50% in coordination of care (as documented) at patient's floor/unit and/or counseling patient: 25 - 35 minutes
[2020-06-09] MEDS: 0.9 % Sodium Chloride 1,000 ML 500 ML IVCONT (08:30)
[2020-06-09 08:38] VITALS: BP 114/75; PULSE 120; TEMP 36.7; O2SAT 100
[2020-06-09 08:38] LABS: Basophils Percent Auto 0.2 % (0-2); Eosinophils Percent Auto 0.2 % (0-4); Hematocrit 26.3 % (37-47); Hemoglobin 9.4 g/dl (12.0-16.0); Imm Gran Abs Auto 0.04 X10*3/uL (0.00-0.03); Imm Gran Pct Auto 0.7 % (0.0-0.4); Lymphocytes Absolute Auto 1.4 X10*3/uL (1.2-4.9); Lymphocytes Percent Auto 24.7 % (20-40); Mean Corpuscular HGB Conc 35.7 g/dl (31.0-35.0); Mean Corpuscular Hemoglobin 38.4 pg (27.0-33.0); Mean Corpuscular Volume 107.3 fL (80-98); Mean Platelet Volume 11.6 fL (9.4-12.3); Monocytes Absolute Auto 0.3 X10*3/uL (0.1-1.2); Monocytes Percent Auto 5.2 % (2-11); NRBC Pct Auto 0.3 /100WBC (0.0-0.2); Platelet Count 186 X10*3/uL (160-400); Red Blood Count 2.45 X10*6/uL (4.20-5.50); Red Cell Distribution Width 19.1 % (11.0-16.0); White Blood Count 5.8 X10*3/uL (4.8-10.8)
[2020-06-09 08:39] LABS: MANUAL DIFF FLAG NO
[2020-06-09 09:12] LABS: Alanine Aminotransferase 21 U/L (0-31); Albumin Level 2.7 g/dL (3.5-5.0); Alkaline Phosphatase 92 U/L (39-117); Anion Gap 16 (12-20); Aspartate Amino Transferase 18 U/L (5-31); Bilirubin Total 0.6 mg/dL (0.0-1.0); Blood Urea Nitrogen 26 mg/dL (9-16); Calcium 7.5 mg/dL (8.4-10.2); Carbon Dioxide 19 mmol/L (22-29); Chloride 98 mmol/L (96-108); Estimated Glomerular Filt Rate > 60; Glucose Random 134 mg/dL (60-115); Magnesium 1.6 mg/dL (1.6-2.6); Potassium 4.2 mmol/l (3.3-5.1); Sodium 129 mmol/L (135-145); Total Protein 4.2 g/dL (6.5-8.0)
[2020-06-09] MEDS: ondansetron HCL/NS 16 MG/50 ML PIGGYBACK 200 MG IV (11:40)
--- NOTE | 2020-06-09 15:07 | MHC.HEMONC ---
Pt here today for IV hydration. Pt has been vomiting since yesterday, also dizzy and weak. Pt states she also fell yesterday. Color is pale, skin warm and dry. Port accessed and labs drawn. NS infused at 500cc/hr, then to 100cc/hr. States she has pain in her abdomen. She also c/o rib pain. Dr Washburn in to see pt, and discussed being evaluated in ED. Pt agreeable to plan. Was brought to ED via stretcher.
[2020-06-10 06:58] LABS: CA-125 255 U/mL (<35)
--- NOTE | 2020-06-12 10:32 | MHC.HEMONCMA ---
Dr Washburn ordered a CT scan with contrast for patient, I have placed the order in [facility] and I will check monday for the progress on that. Dr Washburn also wanted [facility] to have an aid help the patient with showers and get her a shower chair. Susy from [facility] called back and said that they have to send out occupational health to assess her needs for the shower chair and then start giving her an aid to help her. Dr Washburn is aware of both things.
--- NOTE | 2020-06-12 17:21 | MHC.HEMONC ---
CT SCAN - Prior Auth through [facility] [employer] for [facility] Ins. not approved yet per Cent. Scheduling. I tried to call the pt's sister Aura to let her know @ [phone] but n/a so I left her a message. The msg strongly encouraged her to bring Marianne to our ED. I spoke w Petr Falcon in the ED to advocate for CT Scan of abd. Dx: Ovarian Ca w possible obstruction. He states he will make sure ED is aware of the pt's possible arrival to our ED tonight or over the weekend. Dr. Washburn notified.
--- NOTE | 2020-06-22 14:49 | MHC.HEMONCSW ---
ct abd/pelvis with c ordered 06/12/20. received auth from [facility] A# [id number] 06/22 TO 12/19/20. ORDER ENTERED BHAVESH IN O.F. INFORMED GABE CHERY.
--- NOTE | 2020-07-08 14:54 | HE.ONCSEC ---
PER NOE CANAS AT [facility], PATIENT IS IN REHAB AT [facility] AND WILL RESUME CHEMO WHEN DISCHARGED HOME...DATE UNKNOWN AT THIS TIME. UPDATED ANDREINA.
--- NOTE | 2020-07-08 15:34 | MHC.HEMONC ---
KORY [facility] CALLED BECAUSE SHE WAS UNABLE TO REACH PT. TO REFILL HER MEDICATION (LYNPARZA). KORY WOULD LIKE TO KNOW FROM DR TRAORE IF PT WILL CONTINUE WITH LYNLD. DR TRAORE IS OFF TODAY, I WILL FOLLOW-UP WITH HER TOMORROW.
== END 2020-08-05 | disposition home or self-care (01) ==
LOC: HO.ONC 09:00
PROVIDERS: PCP Internal Medicine; Visit Provider Internal Medicine Medical Oncology
DX: C56.9 Malignant neoplasm of unspecified ovary (principal); R18.8 Other ascites; R10.9 Unspecified abdominal pain; R11.2 Nausea with vomiting, unspecified; R97.1 Elevated cancer antigen 125 [CA 125]; E87.6 Hypokalemia; Z15.01 Genetic susceptibility to malignant neoplasm of breast; Z85.42 Personal history of malignant neoplasm of other parts of uterus; Z85.89 Personal history of malignant neoplasm of other organs and systems; Z79.899 Other long term (current) drug therapy; Z92.21 Personal history of antineoplastic chemotherapy
CPT/HCPCS: 36415; 36591; 80053; 83735; 85025; 86304; 86850; 96360; 96361; 96365; 96366; 96375; 99214; J1642; J2270; J2405